=== PATIENT | male | born 1935 | race Caucasian/White ===

== ENCOUNTER 2019-10-13 16:17 | Outpatient (CLI) | payer MEDICARE, OTHER, SELFPAY ==
[2019-10-13 16:43] LABS: Absolute Basophil Count 0.03 k/cumm (0.0-0.2); Absolute Eosinophil Count 0.09 k/cumm (0.0-0.7); Absolute Lymphocyte Count 2.03 k/cumm (1.2-3.4); Absolute Monocyte Count 0.47 k/cumm (0.11-0.7); Absolute Neutrophil Count 2.81 k/cumm (1.2-6.7); Basophils % 0.6; Eosinophils % 1.7; HCT 40.4 % (40.0-50.0); HGB 13.2 g/dL (13.5-17.5); Lymphocytes % 37.4; Mean Corp. HGB Concentration 32.7 g/dL (32.0-36.0); Mean Corpuscular Volume 91.8 fL (80-95); Mean Platelet Volume 10.4 fL (8.0-11.0); Monocytes % 8.7; Neutrophils % 51.6; Platelet Count 261 x1000/uL (130-400); RBC Distribution Width 14.5 % (11.8-14.1); White Blood Cell Count 5.43 k/cumm (4.4-10.8)
[2019-10-13 17:21] LABS: ALT 19 U/L (16-63); AST 22 U/L (15-37); Albumin 3.5 g/dL (3.4-5.0); Alkaline Phosphatase 76 U/L (46-116); Anion Gap 7.5 mmol/L (3-11); BUN 14 mg/dL (7-18); Bilirubin, Total 0.9 mg/dL (0.2-1.0); CO2 28.5 mmol/L (21.0-32.0); CREATININE 1.04 mg/dL (0.70-1.30); Calcium 9.1 mg/dL (8.5-10.1); Chloride 106 mmol/L (98-107); Glucose 132 mg/dL (74-106); Potassium 4.4 mmol/L (3.5-5.1); Sodium 142 mmol/L (136-145); Total Protein 6.8 g/dL (6.4-8.2)
[2019-10-16 08:37] LABS: CEA 12.1 ng/mL (See Note)
[2019-10-19 15:08] LABS: DPYD Predicted Toxicity Risk Normal
== END 2019-10-13 16:37 ==
PROVIDERS: PCP Internal Medicine; Visit Provider Internal Medicine Hematology & Oncology
DX: C16.9 Malignant neoplasm of stomach, unspecified (principal)
CPT/HCPCS: 36415; 80053; 81232; 82378; 85025

== ENCOUNTER 2019-10-27 09:44 | Outpatient (CLI) | payer MEDICARE, OTHER, SELFPAY ==
[2019-10-27 14:18] LABS: Abs Immature Grans 0.02 k/cumm (0.0-0.09); Absolute Basophil Count 0.01 k/cumm (0.0-0.2); Absolute Lymphocyte Count 1.58 k/cumm (1.2-3.4); Absolute Monocyte Count 0.68 k/cumm (0.11-0.7); Absolute Neutrophil Count 3.57 k/cumm (1.2-6.7); Basophils % 0.2; Eosinophils % 1.7; HCT 36.4 % (40.0-50.0); HGB 11.9 g/dL (13.5-17.5); Immature Grans % 0.3 %; Lymphocytes % 26.5; Mean Corp. HGB Concentration 32.7 g/dL (32.0-36.0); Mean Corpuscular Volume 88.6 fL (80-95); Monocytes % 11.4; Neutrophils % 59.9; Platelet Count 260 x1000/uL (130-400); RBC 4.11 m/cumm (4.50-6.00); RBC Distribution Width 13.6 % (11.8-14.1); White Blood Cell Count 5.96 k/cumm (4.4-10.8)
[2019-10-27 14:25] LABS: ALT 16 U/L (16-63); AST 18 U/L (15-37); Alkaline Phosphatase 76 U/L (46-116); Anion Gap 5.2 mmol/L (3-11); BUN 11 mg/dL (7-18); CO2 31.8 mmol/L (21.0-32.0); CREATININE 0.97 mg/dL (0.70-1.30); Chloride 101 mmol/L (98-107); Glucose 139 mg/dL (74-106); Potassium 4.3 mmol/L (3.5-5.1); Sodium 138 mmol/L (136-145); Total Protein 6.5 g/dL (6.4-8.2)
[2019-10-30 11:10] LABS: CEA 15.1 ng/mL (See Note)
== END 2019-10-27 10:04 ==
PROVIDERS: PCP Internal Medicine; Visit Provider Internal Medicine Hematology & Oncology
DX: C16.9 Malignant neoplasm of stomach, unspecified (principal)
CPT/HCPCS: 36415; 80053; 82378; 85025

== ENCOUNTER 2019-11-24 04:38 | Outpatient (RCR) | payer MEDICARE, OTHER, SELFPAY ==
[2019-11-10 14:56] LABS: Abs Immature Grans 0.01 k/cumm (0.0-0.09); Absolute Basophil Count 0.01 k/cumm (0.0-0.2); Absolute Eosinophil Count 0.09 k/cumm (0.0-0.7); Absolute Lymphocyte Count 2.01 k/cumm (1.2-3.4); Absolute Monocyte Count 0.48 k/cumm (0.11-0.7); Absolute Neutrophil Count 2.38 k/cumm (1.2-6.7); Basophils % 0.2; Eosinophils % 1.8; HGB 12.1 g/dL (13.5-17.5); Immature Grans % 0.2 %; Lymphocytes % 40.4; Mean Corp. HGB Concentration 32.7 g/dL (32.0-36.0); Mean Corpuscular Hemoglobin 28.9 pg (27.0-33.0); Mean Corpuscular Volume 88.5 fL (80-95); Mean Platelet Volume 9.5 fL (8.0-11.0); Monocytes % 9.6; Neutrophils % 47.8; Platelet Count 307 x1000/uL (130-400); RBC 4.18 m/cumm (4.50-6.00); RBC Distribution Width 14.2 % (11.8-14.1); White Blood Cell Count 4.98 k/cumm (4.4-10.8)
[2019-11-10] MEDS: Heparin 500 UNITS/5 ML SYRINGE IV (15:04)
[2019-11-10] MEDS: Normal Saline Flush 10 ML SYR IVP (15:04)
[2019-11-10 15:51] LABS: ALT 17 U/L (16-63); AST 18 U/L (15-37); Albumin 3.2 g/dL (3.4-5.0); Alkaline Phosphatase 71 U/L (46-116); Anion Gap 7.2 mmol/L (3-11); BUN 21 mg/dL (7-18); Bilirubin, Total 0.5 mg/dL (0.2-1.0); CO2 28.8 mmol/L (21.0-32.0); Chloride 108 mmol/L (98-107); Glucose 115 mg/dL (74-106); Potassium 3.8 mmol/L (3.5-5.1); Sodium 144 mmol/L (136-145); Total Protein 6.6 g/dL (6.4-8.2); Vitamin B12 657 pg/mL (193-986)
[2019-11-10 16:03] LABS: Iron 29 ug/dL (65-175); Total Iron Binding Capacity 254 ug/dL (250-450); Transferrin Sat 11 % (20-55)
[2019-11-10 16:11] LABS: Ferritin 277 ng/mL (26-388)
[2019-11-24 08:49] LABS: Abs Immature Grans 0.01 k/cumm (0.0-0.09); Absolute Basophil Count 0.02 k/cumm (0.0-0.2); Absolute Eosinophil Count 0.11 k/cumm (0.0-0.7); Absolute Lymphocyte Count 1.54 k/cumm (1.2-3.4); Absolute Monocyte Count 0.66 k/cumm (0.11-0.7); Absolute Neutrophil Count 1.95 k/cumm (1.2-6.7); Basophils % 0.5; Eosinophils % 2.6; HCT 35.5 % (40.0-50.0); HGB 11.5 g/dL (13.5-17.5); Immature Grans % 0.2 %; Lymphocytes % 35.9; Mean Corp. HGB Concentration 32.4 g/dL (32.0-36.0); Mean Corpuscular Hemoglobin 28.7 pg (27.0-33.0); Mean Corpuscular Volume 88.5 fL (80-95); Mean Platelet Volume 9.5 fL (8.0-11.0); Monocytes % 15.4; Neutrophils % 45.4; Platelet Count 264 x1000/uL (130-400); RBC 4.01 m/cumm (4.50-6.00); RBC Distribution Width 14.5 % (11.8-14.1); White Blood Cell Count 4.29 k/cumm (4.4-10.8)
[2019-11-24 09:07] LABS: ALT 15 U/L (16-63); AST 18 U/L (15-37); Albumin 2.7 g/dL (3.4-5.0); Alkaline Phosphatase 87 U/L (46-116); Anion Gap 7.1 mmol/L (3-11); BUN 11 mg/dL (7-18); Bilirubin, Total 0.5 mg/dL (0.2-1.0); CO2 29.9 mmol/L (21.0-32.0); CREATININE 0.98 mg/dL (0.70-1.30); Calcium 8.6 mg/dL (8.5-10.1); Chloride 105 mmol/L (98-107); Glucose 125 mg/dL (74-106); Potassium 3.6 mmol/L (3.5-5.1); Sodium 142 mmol/L (136-145); Total Protein 6.3 g/dL (6.4-8.2)
[2019-11-24] MEDS: Normal Saline Flush 10 ML SYR IVP (09:41)
[2019-11-24] MEDS: Heparin 500 UNITS/5 ML SYRINGE IV (09:41)
[2019-11-27 10:25] LABS: CEA 4.9 ng/mL (See Note)
== END 2019-12-05 23:59 | disposition home or self-care (01) ==
LOC: INF 04:38
PROVIDERS: PCP Internal Medicine; Visit Provider Internal Medicine Hematology & Oncology
DX: C16.9 Malignant neoplasm of stomach, unspecified (principal); Z45.2 Encounter for adjustment and management of vascular access device
CPT/HCPCS: 36591; 80053; 82378; 82607; 82728; 83540; 83550; 85025

== ENCOUNTER 2020-01-04 02:01 | Outpatient (RCR) | payer MEDICARE, OTHER, SELFPAY ==
[2019-12-07 09:21] LABS: Absolute Basophil Count 0.02 k/cumm (0.0-0.2); Absolute Eosinophil Count 0.03 k/cumm (0.0-0.7); Absolute Lymphocyte Count 1.29 k/cumm (1.2-3.4); Absolute Monocyte Count 0.29 k/cumm (0.11-0.7); Absolute Neutrophil Count 2.63 k/cumm (1.2-6.7); Basophils % 0.5; Eosinophils % 0.7; HCT 33.7 % (40.0-50.0); HGB 10.6 g/dL (13.5-17.5); Lymphocytes % 30.3; Mean Corp. HGB Concentration 31.5 g/dL (32.0-36.0); Mean Corpuscular Hemoglobin 27.9 pg (27.0-33.0); Mean Corpuscular Volume 88.7 fL (80-95); Mean Platelet Volume 8.8 fL (8.0-11.0); Monocytes % 6.8; Neutrophils % 61.7; Platelet Count 278 x1000/uL (130-400); RBC Distribution Width 14.9 % (11.8-14.1); White Blood Cell Count 4.26 k/cumm (4.4-10.8)
[2019-12-07] MEDS: Heparin 500 UNITS/5 ML SYRINGE IV (09:24)
[2019-12-07] MEDS: Normal Saline Flush 10 ML SYR IVP (09:24)
[2019-12-07 09:35] LABS: ALT 15 U/L (16-63); AST 20 U/L (15-37); Albumin 2.4 g/dL (3.4-5.0); Alkaline Phosphatase 87 U/L (46-116); Anion Gap 4.8 mmol/L (3-11); BUN 11 mg/dL (7-18); Bilirubin, Total 0.5 mg/dL (0.2-1.0); CO2 30.2 mmol/L (21.0-32.0); CREATININE 0.85 mg/dL (0.70-1.30); Calcium 8.3 mg/dL (8.5-10.1); Chloride 107 mmol/L (98-107); Glucose 117 mg/dL (74-106); Potassium 3.5 mmol/L (3.5-5.1); Sodium 142 mmol/L (136-145); Total Protein 5.9 g/dL (6.4-8.2)
[2019-12-08 12:55] LABS: CEA 3.2 ng/mL (See Note)
[2019-12-22] MEDS: Normal Saline Flush 10 ML SYR IVP (09:20)
[2019-12-22] MEDS: Heparin 500 UNITS/5 ML SYRINGE IV (09:25)
[2019-12-22 09:35] LABS: Abs Immature Grans 0.01 k/cumm (0.0-0.09); Absolute Basophil Count 0.07 k/cumm (0.0-0.2); Absolute Eosinophil Count 0.05 k/cumm (0.0-0.7); Absolute Lymphocyte Count 1.42 k/cumm (1.2-3.4); Absolute Monocyte Count 0.59 k/cumm (0.11-0.7); Absolute Neutrophil Count 2.26 k/cumm (1.2-6.7); Basophils % 1.6; Eosinophils % 1.1; HCT 34.7 % (40.0-50.0); Immature Grans % 0.2 %; Lymphocytes % 32.3; Mean Corp. HGB Concentration 31.7 g/dL (32.0-36.0); Mean Corpuscular Hemoglobin 28.2 pg (27.0-33.0); Mean Platelet Volume 8.8 fL (8.0-11.0); Monocytes % 13.4; Neutrophils % 51.4; Platelet Count 283 x1000/uL (130-400); RBC Distribution Width 15.9 % (11.8-14.1)
[2019-12-22 09:44] LABS: ALT 15 U/L (16-63); AST 26 U/L (15-37); Albumin 2.5 g/dL (3.4-5.0); Alkaline Phosphatase 101 U/L (46-116); Anion Gap 7.5 mmol/L (3-11); BUN 14 mg/dL (7-18); Bilirubin, Total 0.4 mg/dL (0.2-1.0); CO2 27.5 mmol/L (21.0-32.0); CREATININE 0.87 mg/dL (0.70-1.30); Calcium 8.5 mg/dL (8.5-10.1); Chloride 106 mmol/L (98-107); Glucose 156 mg/dL (74-106); Sodium 141 mmol/L (136-145); Total Protein 6.1 g/dL (6.4-8.2)
[2019-12-25 10:44] LABS: CEA 1.5 ng/mL (See Note)
[2020-01-04] MEDS: Heparin 500 UNITS/5 ML SYRINGE IV (07:50)
[2020-01-04] MEDS: Normal Saline Flush 10 ML SYR IVP (07:50)
[2020-01-04 08:14] LABS: Abs Immature Grans 0.02 10^3/uL (0.0-0.06); Absolute Basophil Count 0.04 10^3/uL (0.0-0.2); Absolute Eosinophil Count 0.09 10^3/uL (0.0-0.7); Absolute Lymphocyte Count 1.38 10^3/uL (1.2-3.4); Absolute Monocyte Count 0.46 10^3/uL (0.1-0.8); Absolute Neutrophil Count 3.06 10^3/uL (1.2-6.7); Basophils % 0.8; Eosinophils % 1.8; HCT 33.5 % (40.0-50.0); HGB 10.6 g/dL (13.5-17.5); Immature Grans % 0.4; Lymphocytes % 27.3; MCH 28.4 pg (27.0-33.0); MCHC 31.6 % (32.0-36.0); MCV 89.8 fL (80-95); MPV 9.5 fL (8.0-11.0); Monocytes % 9.1; Neutrophils % 60.6; Platelet Count 213 10^3/uL (130-400); RBC 3.73 10^6/uL (4.36-5.78); RDW 15.9 % (11.8-14.1); RDW-SD 50.3 fL; WBC 5.05 10^3/uL (4.4-10.8)
[2020-01-04 08:30] LABS: ALT 16 U/L (16-63); AST 21 U/L (15-37); Albumin 2.3 g/dL (3.4-5.0); Alkaline Phosphatase 115 U/L (46-116); Anion Gap 7.6 mmol/L (3-11); BUN 12 mg/dL (7-18); Bilirubin, Total 0.4 mg/dL (0.2-1.0); CO2 27.4 mmol/L (21.0-32.0); CREATININE 0.74 mg/dL (0.70-1.30); Calcium 8.5 mg/dL (8.5-10.1); Chloride 107 mmol/L (98-107); Glucose 145 mg/dL (74-106); Potassium 3.9 mmol/L (3.5-5.1); Sodium 142 mmol/L (136-145); Total Protein 5.8 g/dL (6.4-8.2)
[2020-01-04 18:18] LABS: CEA 2.2 ng/mL (See Note)
== END 2020-01-05 23:59 | disposition home or self-care (01) ==
LOC: INF 02:01
PROVIDERS: PCP Internal Medicine; Visit Provider Internal Medicine Hematology & Oncology
DX: C16.9 Malignant neoplasm of stomach, unspecified (principal); Z45.2 Encounter for adjustment and management of vascular access device
CPT/HCPCS: 36591; 80053; 82378; 85025

== ENCOUNTER 2020-01-26 04:40 | Outpatient (RCR) | payer MEDICARE, OTHER, SELFPAY ==
[2020-01-09] MEDS: Normal Saline Flush 10 ML SYR IVP (08:45)
[2020-01-09 09:05] LABS: Absolute Basophil Count 0.03 10^3/uL (0.0-0.2); Absolute Eosinophil Count 0.06 10^3/uL (0.0-0.7); Absolute Lymphocyte Count 1.48 10^3/uL (1.2-3.4); Absolute Monocyte Count 0.78 10^3/uL (0.1-0.8); Absolute Neutrophil Count 0.61 10^3/uL (1.2-6.7); HCT 33.9 % (40.0-50.0); HGB 10.8 g/dL (13.5-17.5); MCH 28.9 pg (27.0-33.0); MCHC 31.9 % (32.0-36.0); MCV 90.6 fL (80-95); MPV 9.5 fL (8.0-11.0); Monocytes % 26.4; Neutrophils % 20.6; Platelet Count 222 10^3/uL (130-400); RBC 3.74 10^6/uL (4.36-5.78); RDW 16.4 % (11.8-14.1); RDW-SD 53.2 fL; WBC 2.96 10^3/uL (4.4-10.8)
[2020-01-09 09:24] LABS: Anisocytosis 1+; Diff Comment Agrees w/ Instrument
[2020-01-09 09:25] LABS: ALT 20 U/L (16-63); AST 30 U/L (15-37); Albumin 2.4 g/dL (3.4-5.0); Alkaline Phosphatase 137 U/L (46-116); Anion Gap 5.7 mmol/L (3-11); BUN 13 mg/dL (7-18); Bilirubin, Total 0.6 mg/dL (0.2-1.0); CO2 28.3 mmol/L (21.0-32.0); CREATININE 0.74 mg/dL (0.70-1.30); Calcium 8.4 mg/dL (8.5-10.1); Chloride 108 mmol/L (98-107); Glucose 118 mg/dL (74-106); Potassium 4.2 mmol/L (3.5-5.1); Sodium 142 mmol/L (136-145)
[2020-01-15 09:25] LABS: Abs Immature Grans 0.07 10^3/uL (0.0-0.06); Absolute Basophil Count 0.05 10^3/uL (0.0-0.2); Absolute Eosinophil Count 0.08 10^3/uL (0.0-0.7); Absolute Lymphocyte Count 1.95 10^3/uL (1.2-3.4); Absolute Monocyte Count 0.87 10^3/uL (0.1-0.8); Basophils % 0.8; Eosinophils % 1.3; HCT 34.3 % (40.0-50.0); HGB 10.6 g/dL (13.5-17.5); Immature Grans % 1.1; Lymphocytes % 31.9; MCH 28.5 pg (27.0-33.0); MCHC 30.9 % (32.0-36.0); MCV 92.2 fL (80-95); MPV 8.9 fL (8.0-11.0); Monocytes % 14.2; Neutrophils % 50.7; Nucleated RBC 0 %; Platelet Count 272 10^3/uL (130-400); RBC 3.72 10^6/uL (4.36-5.78); RDW 17.3 % (11.8-14.1); RDW-SD 58.1 fL; WBC 6.12 10^3/uL (4.4-10.8)
[2020-01-15] MEDS: Normal Saline Flush 10 ML SYR IVP (09:47)
[2020-01-15 09:48] LABS: ALT 20 U/L (16-63); AST 29 U/L (15-37); Albumin 2.3 g/dL (3.4-5.0); Alkaline Phosphatase 137 U/L (46-116); Anion Gap 6.3 mmol/L (3-11); BUN 12 mg/dL (7-18); Bilirubin, Total 0.4 mg/dL (0.2-1.0); CO2 27.7 mmol/L (21.0-32.0); Calcium 8.6 mg/dL (8.5-10.1); Chloride 107 mmol/L (98-107); Glucose 87 mg/dL (74-106); Potassium 4.2 mmol/L (3.5-5.1); Sodium 141 mmol/L (136-145); Total Protein 6.1 g/dL (6.4-8.2)
[2020-01-15 16:14] LABS: CEA 1.8 ng/mL (See Note)
[2020-01-26] MEDS: Heparin 500 UNITS/5 ML SYRINGE IV (08:45)
[2020-01-26] MEDS: Normal Saline Flush 10 ML SYR IVP (08:45)
[2020-01-26 09:06] LABS: Absolute Basophil Count 0.04 10^3/uL (0.0-0.2); Absolute Eosinophil Count 0.02 10^3/uL (0.0-0.7); Absolute Lymphocyte Count 1.46 10^3/uL (1.2-3.4); Absolute Monocyte Count 0.62 10^3/uL (0.1-0.8); Absolute Neutrophil Count 3.19 10^3/uL (1.2-6.7); Basophils % 0.8; Eosinophils % 0.4; HCT 31.6 % (40.0-50.0); HGB 10.3 g/dL (13.5-17.5); Lymphocytes % 27.4; MCH 29.7 pg (27.0-33.0); MCHC 32.6 % (32.0-36.0); MCV 91.1 fL (80-95); MPV 9.1 fL (8.0-11.0); Monocytes % 11.6; Neutrophils % 59.8; Nucleated RBC 0 %; Platelet Count 182 10^3/uL (130-400); RBC 3.47 10^6/uL (4.36-5.78); RDW 17.2 % (11.8-14.1); RDW-SD 55.7 fL; WBC 5.33 10^3/uL (4.4-10.8)
[2020-01-26 09:20] LABS: ALT 19 U/L (16-63); AST 26 U/L (15-37); Albumin 2.5 g/dL (3.4-5.0); Alkaline Phosphatase 131 U/L (46-116); Anion Gap 4.6 mmol/L (3-11); BUN 16 mg/dL (7-18); Bilirubin, Total 0.5 mg/dL (0.2-1.0); CO2 27.4 mmol/L (21.0-32.0); CREATININE 0.74 mg/dL (0.70-1.30); Calcium 8.6 mg/dL (8.5-10.1); Chloride 108 mmol/L (98-107); Glucose 143 mg/dL (74-106); Potassium 3.4 mmol/L (3.5-5.1); Sodium 140 mmol/L (136-145); Total Protein 6.1 g/dL (6.4-8.2)
[2020-01-29 08:30] LABS: CEA 1.9 ng/mL (See Note)
[2020-02-09 11:52] LABS: Abs Immature Grans 0.03 10^3/uL (0.0-0.06); Absolute Basophil Count 0.03 10^3/uL (0.0-0.2); Absolute Eosinophil Count 0.04 10^3/uL (0.0-0.7); Absolute Lymphocyte Count 1.62 10^3/uL (1.2-3.4); Absolute Monocyte Count 0.57 10^3/uL (0.1-0.8); Absolute Neutrophil Count 2.13 10^3/uL (1.2-6.7); Basophils % 0.7; Eosinophils % 0.9; HCT 31.9 % (40.0-50.0); HGB 10.2 g/dL (13.5-17.5); Immature Grans % 0.7; Lymphocytes % 36.7; MCH 30.2 pg (27.0-33.0); MCV 94.4 fL (80-95); MPV 8.9 fL (8.0-11.0); Monocytes % 12.9; Neutrophils % 48.1; Nucleated RBC 0 %; Platelet Count 213 10^3/uL (130-400); RBC 3.38 10^6/uL (4.36-5.78); RDW 16.2 % (11.8-14.1); RDW-SD 56.1 fL; WBC 4.42 10^3/uL (4.4-10.8)
[2020-02-09] MEDS: Heparin 500 UNITS/5 ML SYRINGE IV (11:58)
[2020-02-09] MEDS: Normal Saline Flush 10 ML SYR IVP (11:58)
[2020-02-09 12:04] LABS: ALT 23 U/L (16-63); AST 33 U/L (15-37); Albumin 2.4 g/dL (3.4-5.0); Alkaline Phosphatase 157 U/L (46-116); Anion Gap 5.4 mmol/L (3-11); BUN 13 mg/dL (7-18); Bilirubin, Total 0.3 mg/dL (0.2-1.0); CO2 27.6 mmol/L (21.0-32.0); CREATININE 0.84 mg/dL (0.70-1.30); Calcium 8.3 mg/dL (8.5-10.1); Chloride 107 mmol/L (98-107); Glucose 125 mg/dL (74-106); Potassium 3.9 mmol/L (3.5-5.1); Sodium 140 mmol/L (136-145); Total Protein 5.8 g/dL (6.4-8.2)
[2020-02-09 22:59] LABS: CEA 2.6 ng/mL (See Note)
== END 2020-02-05 09:41 ==
LOC: INF 04:40
PROVIDERS: Internal Medicine Hematology & Oncology; PCP Internal Medicine; Visit Provider Internal Medicine Hematology & Oncology
DX: C16.9 Malignant neoplasm of stomach, unspecified (principal); Z45.2 Encounter for adjustment and management of vascular access device
CPT/HCPCS: 36591; 80053; 82378; 85025

== ENCOUNTER 2020-02-23 09:00 | Outpatient (RCR) | payer MEDICARE, OTHER, SELFPAY ==
[2020-02-23] MEDS: Heparin 500 UNITS/5 ML SYRINGE IV (09:20)
[2020-02-23] MEDS: Normal Saline Flush 10 ML SYR IVP (09:20)
[2020-02-23 09:46] LABS: Abs Immature Grans 0.02 10^3/uL (0.0-0.06); Absolute Basophil Count 0.03 10^3/uL (0.0-0.2); Absolute Eosinophil Count 0.05 10^3/uL (0.0-0.7); Absolute Lymphocyte Count 2.11 10^3/uL (1.2-3.4); Absolute Monocyte Count 0.59 10^3/uL (0.1-0.8); Absolute Neutrophil Count 2.36 10^3/uL (1.2-6.7); Basophils % 0.6; HCT 32.8 % (40.0-50.0); HGB 10.4 g/dL (13.5-17.5); Immature Grans % 0.4; Lymphocytes % 40.9; MCH 30.2 pg (27.0-33.0); MCHC 31.7 % (32.0-36.0); MCV 95.3 fL (80-95); MPV 9.4 fL (8.0-11.0); Monocytes % 11.4; Neutrophils % 45.7; Nucleated RBC 0 %; Platelet Count 215 10^3/uL (130-400); RBC 3.44 10^6/uL (4.36-5.78); RDW 15.9 % (11.8-14.1); RDW-SD 54.4 fL; WBC 5.16 10^3/uL (4.4-10.8)
[2020-02-23 09:53] LABS: ALT 23 U/L (16-63); AST 34 U/L (15-37); Albumin 2.3 g/dL (3.4-5.0); Alkaline Phosphatase 156 U/L (46-116); Anion Gap 4.2 mmol/L (3-11); BUN 14 mg/dL (7-18); Bilirubin, Total 0.3 mg/dL (0.2-1.0); CO2 28.8 mmol/L (21.0-32.0); CREATININE 0.77 mg/dL (0.70-1.30); Calcium 8.4 mg/dL (8.5-10.1); Chloride 109 mmol/L (98-107); Glucose 85 mg/dL (74-106); Sodium 142 mmol/L (136-145); Total Protein 5.9 g/dL (6.4-8.2)
[2020-02-28 09:11] LABS: CEA 3.4 ng/mL (See Note)
== END 2020-03-06 23:59 | disposition home or self-care (01) ==
LOC: INF 09:00
PROVIDERS: PCP Internal Medicine; Visit Provider Internal Medicine Hematology & Oncology
DX: C16.9 Malignant neoplasm of stomach, unspecified (principal); Z45.2 Encounter for adjustment and management of vascular access device
CPT/HCPCS: 36591; 80053; 82378; 85025

== ENCOUNTER 2020-04-05 03:55 | Outpatient (RCR) | payer MEDICARE, OTHER, SELFPAY ==
[2020-03-08] MEDS: Heparin 500 UNITS/5 ML SYRINGE IV (09:03)
[2020-03-08] MEDS: Normal Saline Flush 10 ML SYR IVP (09:03)
[2020-03-08 09:06] LABS: Abs Immature Grans 0.01 10^3/uL (0.0-0.06); Absolute Basophil Count 0.03 10^3/uL (0.0-0.2); Absolute Eosinophil Count 0.03 10^3/uL (0.0-0.7); Absolute Lymphocyte Count 1.47 10^3/uL (1.2-3.4); Absolute Neutrophil Count 2.07 10^3/uL (1.2-6.7); Basophils % 0.7; Eosinophils % 0.7; HCT 31.8 % (40.0-50.0); HGB 10.3 g/dL (13.5-17.5); Immature Grans % 0.2; Lymphocytes % 34.9; MCH 30.6 pg (27.0-33.0); MCHC 32.4 % (32.0-36.0); MCV 94.4 fL (80-95); MPV 9.3 fL (8.0-11.0); Monocytes % 14.3; Neutrophils % 49.2; Nucleated RBC 0 %; Platelet Count 180 10^3/uL (130-400); RBC 3.37 10^6/uL (4.36-5.78); RDW 15.5 % (11.8-14.1); WBC 4.21 10^3/uL (4.4-10.8)
[2020-03-08 09:16] LABS: ALT 19 U/L (16-63); AST 30 U/L (15-37); Albumin 2.2 g/dL (3.4-5.0); Alkaline Phosphatase 137 U/L (46-116); Anion Gap 5.8 mmol/L (3-11); BUN 10 mg/dL (7-18); Bilirubin, Total 0.4 mg/dL (0.2-1.0); CO2 27.2 mmol/L (21.0-32.0); CREATININE 0.85 mg/dL (0.70-1.30); Calcium 8.1 mg/dL (8.5-10.1); Chloride 110 mmol/L (98-107); Glucose 151 mg/dL (74-106); Potassium 3.2 mmol/L (3.5-5.1); Sodium 143 mmol/L (136-145); Total Protein 5.7 g/dL (6.4-8.2)
[2020-03-08 18:13] LABS: CEA 3.2 ng/mL (See Note)
[2020-03-22] MEDS: Normal Saline Flush 10 ML SYR IVP (09:52)
[2020-03-22] MEDS: Heparin 500 UNITS/5 ML SYRINGE IV (09:52)
[2020-03-22 10:05] LABS: Abs Immature Grans 0.02 10^3/uL (0.0-0.06); Absolute Basophil Count 0.03 10^3/uL (0.0-0.2); Absolute Eosinophil Count 0.01 10^3/uL (0.0-0.7); Absolute Lymphocyte Count 1.54 10^3/uL (1.2-3.4); Absolute Monocyte Count 0.54 10^3/uL (0.1-0.8); Absolute Neutrophil Count 1.85 10^3/uL (1.2-6.7); Basophils % 0.8; Eosinophils % 0.3; HCT 32.4 % (40.0-50.0); HGB 10.5 g/dL (13.5-17.5); Immature Grans % 0.5; Lymphocytes % 38.6; MCH 30.8 pg (27.0-33.0); MCHC 32.4 % (32.0-36.0); MPV 9.1 fL (8.0-11.0); Monocytes % 13.5; Neutrophils % 46.3; Nucleated RBC 0 %; Platelet Count 159 10^3/uL (130-400); RBC 3.41 10^6/uL (4.36-5.78); RDW 15.2 % (11.8-14.1); RDW-SD 51.9 fL; WBC 3.99 10^3/uL (4.4-10.8)
[2020-03-22 10:26] LABS: ALT 21 U/L (16-63); AST 35 U/L (15-37); Albumin 2.3 g/dL (3.4-5.0); Alkaline Phosphatase 151 U/L (46-116); Anion Gap 5.4 mmol/L (3-11); BUN 16 mg/dL (7-18); Bilirubin, Total 0.3 mg/dL (0.2-1.0); CO2 27.6 mmol/L (21.0-32.0); CREATININE 0.77 mg/dL (0.70-1.30); Calcium 8.4 mg/dL (8.5-10.1); Chloride 109 mmol/L (98-107); Glucose 108 mg/dL (74-106); Potassium 4.2 mmol/L (3.5-5.1); Sodium 142 mmol/L (136-145); Total Protein 5.8 g/dL (6.4-8.2)
[2020-03-22 18:12] LABS: CEA 3.4 ng/mL (See Note)
[2020-04-05 10:09] LABS: Abs Immature Grans 0.01 10^3/uL (0.0-0.06); Absolute Basophil Count 0.03 10^3/uL (0.0-0.2); Absolute Eosinophil Count 0.02 10^3/uL (0.0-0.7); Absolute Lymphocyte Count 1.52 10^3/uL (1.2-3.4); Absolute Monocyte Count 0.43 10^3/uL (0.1-0.8); Absolute Neutrophil Count 1.89 10^3/uL (1.2-6.7); Basophils % 0.8; Eosinophils % 0.5; HCT 32.3 % (40.0-50.0); HGB 10.2 g/dL (13.5-17.5); Immature Grans % 0.3; MCH 30.6 pg (27.0-33.0); MCHC 31.6 % (32.0-36.0); MPV 9.1 fL (8.0-11.0); Neutrophils % 48.4; Nucleated RBC 0 %; Platelet Count 171 10^3/uL (130-400); RBC 3.33 10^6/uL (4.36-5.78); RDW 15.1 % (11.8-14.1)
[2020-04-05 10:22] LABS: ALT 22 U/L (16-63); AST 39 U/L (15-37); Albumin 2.3 g/dL (3.4-5.0); Alkaline Phosphatase 157 U/L (46-116); Anion Gap 5.5 mmol/L (3-11); BUN 12 mg/dL (7-18); Bilirubin, Total 0.4 mg/dL (0.2-1.0); CO2 27.5 mmol/L (21.0-32.0); CREATININE 0.77 mg/dL (0.70-1.30); Calcium 8.3 mg/dL (8.5-10.1); Chloride 110 mmol/L (98-107); Glucose 118 mg/dL (74-106); Sodium 143 mmol/L (136-145); Total Protein 5.8 g/dL (6.4-8.2)
[2020-04-05] MEDS: Normal Saline Flush 10 ML SYR IVP (10:50)
[2020-04-05] MEDS: Heparin 500 UNITS/5 ML SYRINGE IV (10:50)
[2020-04-10 16:06] LABS: CEA 2.9 ng/ml
== END 2020-04-06 23:59 | disposition home or self-care (01) ==
LOC: INF 03:55
PROVIDERS: PCP Internal Medicine; Visit Provider Internal Medicine Hematology & Oncology
DX: C16.9 Malignant neoplasm of stomach, unspecified (principal); Z45.2 Encounter for adjustment and management of vascular access device
CPT/HCPCS: 36591; 80053; 82378; 85025

== ENCOUNTER 2020-04-19 04:09 | Outpatient (RCR) | payer MEDICARE, OTHER, SELFPAY ==
[2020-04-19] MEDS: Normal Saline Flush 10 ML SYR IVP (09:59)
[2020-04-19] MEDS: Heparin 500 UNITS/5 ML SYRINGE IV (09:59)
[2020-04-19 10:17] LABS: Abs Immature Grans 0.01 10^3/uL (0.0-0.06); Absolute Basophil Count 0.04 10^3/uL (0.0-0.2); Absolute Eosinophil Count 0.04 10^3/uL (0.0-0.7); Absolute Lymphocyte Count 1.52 10^3/uL (1.2-3.4); Absolute Neutrophil Count 1.79 10^3/uL (1.2-6.7); HCT 31.7 % (40.0-50.0); Immature Grans % 0.3; MCH 30.5 pg (27.0-33.0); MCHC 31.5 % (32.0-36.0); MCV 96.6 fL (80-95); MPV 9.1 fL (8.0-11.0); Monocytes % 12.8; Neutrophils % 45.9; Nucleated RBC 0 %; Platelet Count 154 10^3/uL (130-400); RBC 3.28 10^6/uL (4.36-5.78); RDW 15.2 % (11.8-14.1); RDW-SD 51.8 fL
[2020-04-19 10:33] LABS: ALT 23 U/L (16-63); AST 41 U/L (15-37); Albumin 2.2 g/dL (3.4-5.0); Alkaline Phosphatase 172 U/L (46-116); Anion Gap 6.2 mmol/L (3-11); BUN 14 mg/dL (7-18); Bilirubin, Total 0.4 mg/dL (0.2-1.0); CO2 26.8 mmol/L (21.0-32.0); CREATININE 0.91 mg/dL (0.70-1.30); Calcium 8.2 mg/dL (8.5-10.1); Chloride 109 mmol/L (98-107); Glucose 130 mg/dL (74-106); Potassium 4.1 mmol/L (3.5-5.1); Sodium 142 mmol/L (136-145); Total Protein 5.9 g/dL (6.4-8.2)
[2020-04-22 16:22] LABS: CEA 2.8 ng/ml
== END 2020-05-06 23:59 | disposition home or self-care (01) ==
LOC: INF 04:09
PROVIDERS: PCP Internal Medicine; Visit Provider Internal Medicine Hematology & Oncology
DX: C16.9 Malignant neoplasm of stomach, unspecified (principal); Z45.2 Encounter for adjustment and management of vascular access device
CPT/HCPCS: 36591; 80053; 82378; 85025

== ENCOUNTER 2020-05-28 01:31 | Outpatient (RCR) | payer MEDICARE, OTHER, SELFPAY ==
[2020-05-08] MEDS: Normal Saline Flush 10 ML SYR IVP (10:05)
[2020-05-08 10:27] LABS: Absolute Eosinophil Count 0.03 10^3/uL (0.0-0.7); HCT 31.9 % (40.0-50.0); HGB 10.3 g/dL (13.5-17.5); MCH 30.9 pg (27.0-33.0); MCHC 32.3 % (32.0-36.0); MCV 95.8 fL (80-95); MPV 9.1 fL (8.0-11.0); Nucleated RBC 0 %; RBC 3.33 10^6/uL (4.36-5.78); RDW 15.5 % (11.8-14.1); RDW-SD 53.9 fL; WBC 2.55 10^3/uL (4.4-10.8)
[2020-05-08 10:43] LABS: ALT 21 U/L (16-63); AST 39 U/L (15-37); Albumin 2.2 g/dL (3.4-5.0); Alkaline Phosphatase 185 U/L (46-116); Anion Gap 3.6 mmol/L (3-11); BUN 17 mg/dL (7-18); Bilirubin, Total 0.6 mg/dL (0.2-1.0); CO2 27.4 mmol/L (21.0-32.0); CREATININE 0.83 mg/dL (0.70-1.30); Calcium 8.2 mg/dL (8.5-10.1); Chloride 107 mmol/L (98-107); Glucose 109 mg/dL (74-106); Potassium 4.1 mmol/L (3.5-5.1); Sodium 138 mmol/L (136-145); Total Protein 5.9 g/dL (6.4-8.2)
[2020-05-08 11:00] LABS: Platelet Count 156 10^3/uL (130-400)
[2020-05-08 11:01] LABS: Absolute Basophil Count 0.08 10^3/uL (0.0-0.2); Absolute Lymphocyte Count 1.58 10^3/uL (1.2-3.4); Absolute Monocyte Count 0.54 10^3/uL (0.1-0.8); Atypical Lymphocytes % 3; Diff Comment Manual Differential; RBC Morphology Normal
[2020-05-08 11:03] LABS: Absolute Neutrophil Count 0.33 10^3/uL (1.2-6.7)
[2020-05-08 21:37] LABS: CEA 2.6 ng/mL (See Note)
[2020-05-24] MEDS: Normal Saline Flush 10 ML SYR IVP (08:28)
[2020-05-24] MEDS: Heparin 500 UNITS/5 ML SYRINGE IV (08:29)
[2020-05-24 08:40] LABS: Abs Immature Grans 0.02 10^3/uL (0.0-0.06); Absolute Eosinophil Count 0.04 10^3/uL (0.0-0.7); Absolute Lymphocyte Count 1.87 10^3/uL (1.2-3.4); Absolute Monocyte Count 0.79 10^3/uL (0.1-0.8); Absolute Neutrophil Count 3.32 10^3/uL (1.2-6.7); Basophils % 1.6; Eosinophils % 0.7; HCT 32.4 % (40.0-50.0); HGB 10.4 g/dL (13.5-17.5); Immature Grans % 0.3; Lymphocytes % 30.5; MCH 31.5 pg (27.0-33.0); MCHC 32.1 % (32.0-36.0); MCV 98.2 fL (80-95); MPV 9.9 fL (8.0-11.0); Monocytes % 12.9; Nucleated RBC 0 %; Platelet Count 284 10^3/uL (130-400); RDW 15.6 % (11.8-14.1); RDW-SD 56.7 fL; WBC 6.14 10^3/uL (4.4-10.8)
[2020-05-24 08:50] LABS: ALT 23 U/L (16-63); AST 45 U/L (15-37); Albumin 2.2 g/dL (3.4-5.0); Alkaline Phosphatase 210 U/L (46-116); Anion Gap 5.2 mmol/L (3-11); BUN 15 mg/dL (7-18); Bilirubin, Total 0.5 mg/dL (0.2-1.0); CO2 27.8 mmol/L (21.0-32.0); CREATININE 0.82 mg/dL (0.70-1.30); Calcium 8.3 mg/dL (8.5-10.1); Chloride 108 mmol/L (98-107); Glucose 130 mg/dL (74-106); Potassium 4.6 mmol/L (3.5-5.1); Sodium 141 mmol/L (136-145); Total Protein 6.3 g/dL (6.4-8.2)
[2020-05-24 20:41] LABS: CEA 2.1 ng/mL (See Note)
== END 2020-06-06 23:59 | disposition home or self-care (01) ==
LOC: INF 01:31
PROVIDERS: PCP Internal Medicine; Visit Provider Internal Medicine Hematology & Oncology
DX: C16.9 Malignant neoplasm of stomach, unspecified (principal); Z45.2 Encounter for adjustment and management of vascular access device
CPT/HCPCS: 36591; 80053; 82378; 85025

== ENCOUNTER 2020-06-28 04:27 | Outpatient (RCR) | payer MEDICARE, OTHER, SELFPAY ==
--- OUTSIDE RECORDS SUMMARY | 2020-06-14 08:48 | XMS_ITS ---
:1935 Author Care Team Providers Name Role Phone ERIS SALDIVAR DO Primary Care Provider [phone] NINI GILL MD General Surgeon [phone] Allergies Code Code System Name Reaction Severity Status Onset Jon Inhibitors ? ? Active ? Notes: Reviewed with patient Medications Name Status Start Date Stop Date ? ? Acetaminophen Extra Strength 500 mg tablet Completed 09/0810/02/2019 Take 1000 mg every 6 hours by oral route. amoxicillin 500 mg capsule Completed ? 10/25 Cardizem 120 mg tablet Completed 09/09/2019 0 Take 120 mg twice a day by oral route. clarithromycin 500 mg tablet Completed ? Cozaar 50 mg tablet Completed 04/17/2016 12/11/2016 1 (one) Tablet: daily diltiazem CD 120 mg Completed ? 09/11/2019 capsule,extended release 24 hr docusate sodium 100 mg capsule Completed 10/25/2019 0 12/01/2019 Take 1 capsule every day by oral route as needed. Eliquis 5 mg tablet Active ? Not availabl e erythromycin 500 mg tablet Completed ? 10/25 hydrocodone 5 mg-acetaminophen 325 mg tablet Completed 01/04/2014 1 (one) Tablet Tablet: every four to six hours as needed ibuprofen Completed ? 10/13/2018 as needed ibuprofen 200 mg tablet Completed ? 07/25/19 20 Take 3 tablets every 6 hours by oral route as needed. lactulose 10 gram/15 mL oral solution Completed 07/21/2015 08/30/2015 30 Milliliter: daily as needed lisinopril 10 mg tablet Completed 04/09/2014 04/09/20 14 1 (one) Tablet: daily metoclopramide 10 mg tablet Completed ? 09/2019 neomycin 500 mg tablet Completed ? 8 omeprazole 40 mg Completed ? 10/25/2017 capsule,delayed release prochlorperazine maleate 10 mg Completed ? 0 12/01/2019 tablet propranolol 10 mg tablet Completed ? 018 propranolol 20 mg tablet Completed ? 019 propranolol 60 mg tablet Active ? Not abdiaziz ilable Take 1 tablet twice a day by oral route for 90 days. senna Completed ? 10/16/2019 2 tabs daily Problems Name Status Onset Date Source ? Atrial Fibrillation Active 10/13/2018 ? 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 Hypertensive Disorder Active 03/04/2020 ? Primary Malignant Neoplasm of Sigmoid Unknown ? History Colon Iron Deficiency Unknown ? History Body Mass Index 25-29 - Overweight Active ? History Impotence Active ? History Essential Tremor Active ? History Carpal Tunnel Syndrome Active ? ? Cubital Tunnel Syndrome Active ? ? Hearing Loss Active ? History Benign Essential Hypertension Unknown ? Hi story Hemorrhoids Unknown ? History Acute Sinusitis Unknown ? History Constipation Active ? History Occult Blood in Stools Unknown ? ? Procedures Date Name Performed by ? 10/22/2019 EGD/Endoscopy Information not avai lable Notes: afferent loop synd sherron; 08/28/2019 significant esophagitis and gastritis, w/ concern for malignancy, gastric outflow obsrrtuction. 03/25/18 Gastritis; 09-06-2017 10/20/2019 Port Vascular Access Insertion Informati on not available Notes: gastric cancer 09/04/2019 Subtotal Gastrectomy Information not abdiaziz ilable Notes: gastric adenocarcinoma. 12/02/2018 Colonoscopy Information not avai lable Notes: polyp of colon; Cancer of Sigmoid colon; 08/2013: abnormal left colon polyp 10/06/2017 Partial Removal of Colon Information not available Notes: Laparoscopic teresa xavi then open left hemicolectomy with colorectal anastomosis 08/25/2013 Hernia Repair Information not avai lable Notes: Left with hydrocelectomy 06/07/2012 Cataract Surgery Information not avai lable Notes: Bilateral 06/07/1970 Removal of Rib Information not avai lable Notes: Left first rib resection 01/23/2019 Holter Monitor [facility] Cardio pulmonary [address] [place] [address] (Work Place) Results Lab Results Date Name Specimen Result Interpretation Description Value Range Status Address ? 10/23/2019 BMP, Serum S High g/r 131 mg/dL 74-106 Final [place] or Plasma mg/dL [facility] (Internal) : [address] ? ? S ? Bun 16 mg/dL 9-20 [facility] mg/dL [facility] : [address] ? ? S ? Crea 0.80 0.66-1.25 Final [place] mg/dL mg/dL [facility] ([facility] : [address] t ? ? S ? Ca 8.6 mg/dL 8.4-10.2 Final [facility] mg/dL [facility] ([facility]) : [address] t ? ? S ? Na 140 137-145 Final [place] mmol/L mmol/L [facility] ([facility] : [address] ? ? S ? K 3.8 3.5-5.1 Final [place] mmol/L mmol/L [facility] ([facility] : [address] t ? ? S ? Cl 103 98-107 Final [place] mmol/L mmol/L [facility] ([facility]) : [address] t ? ? S ? Tco2 28.0 22.0-30.0 Final [place] mmol/L mmol/L [facility] ([facility]) : [address] t 10/22/2019 CBC W/ Auto BLD ? Wbc 5.9 5.0-10.0 Final [place] Diff 10*3/uL 10*3/uL [facility] ([facility]) : [address] t ? ? BLD Low Rbc 4.53 4.60-6.00 Final [place] 10*6/uL 10*6/uL [facility] (Internal) : [address] ? ? BLD Low Hgb 13.1 g/dL 14.0-18.0 Final Nort [facility] g/dL [facility] (Internal) : [address] ? ? BLD ? Hct 41.5 % 41.0-51.0 Final [place] % [facility] (Internal) : [address] ? ? BLD ? Mcv 91.6 fL 80.0-96.0 Final [place] fL [facility] (Internal) : [address] ? ? BLD ? Mch 28.9 pg 26.0-32.0 Final [facility] L ab (Internal) : [address] ? ? BLD ? Mchc 31.6 g/dL 31.0-35.0 Final Nort h g/dL [facility] L ab (Internal) : [address] ? ? BLD ? Rdw 14.0 % 11.5-14.5 Final [facility] L ab (Internal) : [address] ? ? BLD ? Plt 229 130-450 Final [place] 10*3/uL 10*3/uL [facility] (Internal) : [address] ? ? BLD ? Anc 4.25 ? Final [place] 10*3/uL [facility] L ab (Internal) : [address] ? ? BLD High Nlr 3.43 0.00-3.20 Final [facility] L ab (Internal) : [address] ? ? BLD ? Neutro 72.4 % 40.0-75.0 Final [facility] L ab (Internal) : [address] ? ? BLD ? Lymph 21.1 % 20.0-50.0 Final [facility] L ab (Internal) : [address] ? ? BLD ? Gallia 5.6 % 2.0-10.0 Final [facility] L ab (Internal) : [address] ? ? BLD Low Eos 0.2 % 1.0-6.0 % Final [facility] L ab (Internal) : [address] ? ? BLD ? Baso 0.5 % 0.0-1.0 % Final [facility] L ab (Internal) : [address] ? ? BLD ? Ig 0.2 % 0.0-0.9 % Final [facility] L ab (Internal) : [address] 10/22/2019 CMP, Serum S High g/r 167 mg/dL 74-106 Final [place] or Plasma mg/dL [facility] (Internal) : [address] ? ? S ? Bun 16 mg/dL 9-20 Final [facility] mg/dL [facility] ([facility]) : [address] ? ? S ? Crea 0.80 0.66-1.25 Final [facility] mg/dL mg/dL [facility] (Internal) : [address] ? ? S ? Ca 9.1 mg/dL 8.4-10.2 Final [facility] mg/dL [facility] (Internal) : [address] ? ? S ? Na 141 137-145 Final [facility] mmol/L mmol/L [facility] (Internal) : [address] ? ? S ? K 4.0 3.5-5.1 Final [facility] mmol/L mmol/L [facility] (Internal) : [address] ? ? S ? Cl 104 98-107 Final [facility] mmol/L mmol/L [facility] (Internal) : [address] ? ? S ? Tco2 26.0 22.0-30.0 Final [facility] mmol/L mmol/L [facility] (Internal) : [address] ? ? S ? Tp 6.9 g/dL 6.3-8.2 Final [facility] g/dL [facility] (Internal) : [address] ? ? S ? Alb 3.7 g/dL 3.5-5.0 Final [facility] g/dL [facility] (Internal) : [address] ? ? S ? Tbil 1.1 mg/dL 0.2-1.3 Final [facility] mg/dL [facility] ([facility]) : [address] ? ? S ? Alp 79 U/L 38-126 Final [facility] U/L [facility] ([facility]) : [address] ? ? S Low Alt 11 U/L 21-72 U/L Final [facility] (Sgpt) [facility] ([facility] : [address] ? ? S ? Ast 22 U/L 17-59 U/L Final [facility] (Sgot) [facility] ([facility] : [address] 10/22/2019 CRP, High S High Rcrp 1.05 0.10-0.30 Final [facility] Sensitivity mg/dL mg/dL Count ry , Serum or Hospit al Lab Plasma (Internal) : [address] 10/22/2019 Lipase, S High Lip 378 U/L 23-300 Final Nort h Serum or U/L [facility] L ab (Internal) : [address] 10/22/2019 Urinalysis, UR ? UA-colo yellow pale Final [place] Dipstick, r yellow [facility] L ab Micro (Internal) : [address] ? ? UR ? UA-appe clear clear Final [facility] (Internal) : [address] ? ? UR ? UA-spec 1.025 1.003-1.0 Final [place] Grav 35 [facility] L ab (Internal) : [address] ? ? UR ? UA-pH 5.0 [pH] 4.6-8.0 Final [place] [pH] [facility] L ab (Internal) : [address] ? ? UR ? UA-leuk negative negative Final Nort h Est [facility] L ab (Internal) : [address] ? ? UR ? UA-nitr negative negative Final Nort h ite [facility] (Internal) : [address] ? ? UR ABNORMAL UA-prot trace negative Final [facility] (Internal) : [address] ? ? UR ? UA-gluc trace negative Final [facility] L ab (Internal) : [address] ? ? UR ABNORMAL UA-keto trace negative Final Nort h [facility] L ab (Internal) : [address] ? ? UR ? UA-urob normal normal Final [facility] L ab (Internal) : [address] ? ? UR ? UA-bili negative negative Final Nort h [facility] (Internal) : [address] ? ? UR ? UA-bloo negative negative Final Nort h d [facility] (Internal) : [address] 10/22/2019 Urinalysis, UR ? UA-WBC 0-3 [hpf] 0-3 [hpf] F inal [place] Microscopic Count ry Hospital L ab (Internal) : [address] ? ? UR ? UA-RBC 0-2 [hpf] 0-2 [hpf] Final Nor th [facility] L ab (Internal) : [address] ? ? UR ? UA-bact rare none seen Final [place] eria [hpf] [hpf] [facility] ab (Internal) : [address] ? ? UR ABNORMAL UA-epit few [hpf] none seen Final [place] helial [hpf] [facility] ab (Internal) : [address] ? ? UR ABNORMAL UA-mucu few [hpf] none seen Final [place] s [hpf] [facility] ab (Internal) : [address] ? ? UR ? Hyaline rare ? Final [place] C [hpf] [facility] ab (Internal) : [address] ? ? UR ABNORMAL Unident ? none seen Final [facility] ified [hpf] [facility] L ab (Internal) : [address] 09/09/2019 CBC W/ Auto BLD ? Wbc 7.1 5.0-10.0 Final [place] Diff 10*3/uL 10*3/uL [facility] L ab (Internal) : [address] ? ? BLD Low Rbc 3.50 4.60-6.00 Final [place] 10*6/uL 10*6/uL [facility] L ab (Internal) : [address] ? ? BLD Low Hgb 10.2 g/dL 14.0-18.0 Final Nort h g/dL [facility] (Internal) : [address] ? ? BLD Low Hct 32.1 % 41.0-51.0 Final [place] % [facility] L ab (Internal) : [address] ? ? BLD ? Mcv 91.7 fL 80.0-96.0 Final [facility] L ab (Internal) : [address] ? ? BLD ? Mch 29.1 pg 26.0-32.0 Final [facility] ab (Internal) : [address] ? ? BLD ? Mchc 31.8 g/dL 31.0-35.0 Final Nort h g/dL [facility] L ab (Internal) : [address] ? ? BLD ? Rdw 13.3 % 11.5-14.5 Final [facility] L ab (Internal) : [address] ? ? BLD ? Plt 223 130-450 Final [place] 10*3/uL 10*3/uL [facility] L ab (Internal) : [address] ? ? BLD ? Anc 4.80 ? Final [place] 10*3/uL [facility] L ab (Internal) : [address] ? ? BLD ? Neutro 67.6 % 40.0-75.0 Final [facility] L ab (Internal) : [address] ? ? BLD Low Lymph 19.4 % 20.0-50.0 Final [facility] L ab (Internal) : [address] ? ? BLD ? Gallia 8.7 % 2.0-10.0 Final [facility] L ab (Internal) : [address] ? ? BLD ? Eos 2.8 % 1.0-6.0 % Final [facility] L ab (Internal) : [address] ? ? BLD ? Baso 0.7 % 0.0-1.0 % Final [facility] L ab (Internal) : [address] ? ? BLD ? Ig 0.8 % 0.0-0.9 % Final [facility] L ab (Internal) : [address] 09/09/2019 BMP, Serum S ? g/r 99 mg/dL 74-106 Final [place] or Plasma mg/dL [facility] L ab (Internal) : [address] ? ? S ? Bun 14 mg/dL 9-20 Final North mg/dL [facility] L ab (Internal) : [address] ? ? S Low Crea 0.60 0.66-1.25 Final [place] mg/dL mg/dL [facility] L ab (Internal) : [address] ? ? S ? Ca 8.6 mg/dL 8.4-10.2 Final [facility] mg/dL [facility] ([facility] : [address] ? ? S Low Na 135 137-145 Final [place] mmol/L mmol/L [facility] (Internal) : [address] ? ? S ? K 4.2 3.5-5.1 Final [place] mmol/L mmol/L [facility] (Internal) : [address] ? ? S ? Cl 102 98-107 Final [place] mmol/L mmol/L [facility] L ab (Internal) : [address] ? ? S ? Tco2 24.0 22.0-30.0 Final [place] mmol/L mmol/L [facility] (Internal) : [address] 09/09/2019 Magnesium, S ? mg 2.3 mg/dL 1.6-2.3 Final [place] QN, Serum mg/dL [facility] Hosp[facility] Lab (Internal) : [address] 09/09/2019 Phosphorus, S ? Phos 3.8 mg/dL 2.5-4.5 [place] l [place] Serum or mg/dL [facility] (Internal) : [address] 09/08/2019 CBC W/ Auto BLD ? Wbc 7.3 5.0-10.0 Final [place] Diff 10*3/uL 10*3/uL [facility] (Internal) : [address] ? ? BLD Low Rbc 3.23 4.60-6.00 Final [place] 10*6/uL 10*6/uL [facility] (Internal) : [address] ? ? BLD Low Hgb 9.6 g/dL 14.0-18.0 Final [place] g/dL [facility] (Internal) : [address] ? ? BLD Low Hct 29.8 % 41.0-51.0 Final [place] % [facility] L ab (Internal) : [address] ? ? BLD ? Mcv 92.3 fL 80.0-96.[address] [facility] L ab (Internal) : [address] ? ? BLD ? Mch 29.7 pg 26.0-32.[address] pg [facility] L ab (Internal) : [address] ? ? BLD ? Mchc 32.2 g/dL 31.0-35.0 Final Nort h g/dL [facility] L ab (Internal) : [address] ? ? BLD ? Rdw 13.2 % 11.5-14.5 Final [facility] L ab (Internal) : [address] ? ? BLD ? Plt 229 130-450 Final [place] 10*3/uL 10*3/uL [facility] L ab (Internal) : [address] ? ? BLD ? Anc 5.30 ? Final [place] 10*3/uL [facility] L ab (Internal) : [address] ? ? BLD ? Neutro 73.1 % 40.0-75.0 Final [facility] L ab (Internal) : [address] ? ? BLD Low Lymph 14.5 % 20.0-50.0 Final [facility] L ab (Internal) : [address] ? ? BLD ? Gallia 8.0 % 2.0-10.0 Final [facility] L ab (Internal) : [address] ? ? BLD ? Eos 3.0 % 1.0-6.0 % Final [facility] Hospital L ab (Internal) : [address] ? ? BLD ? Baso 0.6 % 0.0-1.0 % Final [facility] Hospital L ab (Internal) : [address] ? ? BLD ? Ig 0.8 % 0.0-0.9 % Final [facility] L ab (Internal) : [address] t 09/08/2019 BMP, Serum S High g/r 136 mg/dL 74-106 Final [place] or Plasma mg/dL [facility] L ab (Internal) : [address] ? ? S ? Bun 13 mg/dL 9-20 Final [place] mg/dL [facility] L ab (Internal) : [address] ? ? S Low Crea 0.50 0.66-1.25 Final [facility] mg/dL mg/dL [facility] ([facility]) : [address] ? ? S ? Ca 8.4 mg/dL 8.4-10.2 Final [facility] mg/dL [facility] (Internal) : [address] ? ? S Low Na 135 137-145 Final [facility] mmol/L mmol/L [facility] (Internal) : [address] ? ? S ? K 4.2 3.5-5.1 Final [place] mmol/L mmol/L [facility] (Internal) : [address] ? ? S ? Cl 101 98-107 Final [facility] mmol/L mmol/L [facility] (Internal) : [address] ? ? S ? Tco2 26.0 22.0-30.0 Final [facility] mmol/L mmol/L [facility] (Internal) : [address] 09/08/2019 Magnesium, S ? mg 2.2 mg/dL 1.6-2.3 Final [place] QN, Serum mg/dL [facility] Lab (Internal) : [address] 09/08/2019 Phosphorus, S ? Phos 4.4 mg/dL 2.5-4.5 [place] [place] Serum or mg/dL [facility] (Internal) : [address] 09/07/2019 BMP, Serum S High g/r 118 mg/dL 74-106 Final [place] or Plasma mg/dL [facility] (Internal) : [address] ? ? S ? Bun 13 mg/dL 9-20 Final [facility] mg/dL [facility] (Internal) : [address] ? ? S Low Crea 0.50 0.66-1.25 Final [facility] mg/dL mg/dL [facility] (Internal) : [address] ? ? S Low Ca 8.1 mg/dL 8.4-10.2 Final [facility] mg/dL [facility] (Internal) : [address] ? ? S Low Na 135 137-145 Final [facility] mmol/L mmol/L [facility] (Internal) : [address] ? ? S ? K 4.2 3.5-5.1 Final [place] mmol/L mmol/L [facility] L ab (Internal) : [address] ? ? S ? Cl 102 98-107 Final [place] mmol/L mmol/L [facility] L ab (Internal) : [address] ? ? S ? Tco2 26.0 22.0-30.0 Final [place] mmol/L mmol/L [facility] L ab (Internal) : [address] 09/07/2019 Magnesium, S ? mg 2.0 mg/dL 1.6-2.3 Final [place] QN, Serum mg/dL [facility] Lab (Internal) : [address] t 09/07/2019 Phosphorus, S ? Phos 3.5 mg/dL 2.5-4.5 Janeen l [place] Serum or mg/dL [facility] Hospital L ab (Internal) : [address] 09/07/2019 CBC W/ Auto BLD High Wbc 10.6 5.0-10.0 Final [place] Diff 10*3/uL 10*3/uL [facility] L ab (Internal) : [address] ? ? BLD Low Rbc 3.03 4.60-6.00 Final [place] 10*6/uL 10*6/uL [facility] L ab (Internal) : [address] ? ? BLD Low Hgb 9.1 g/dL 14.0-18.0 Final [place] g/dL [facility] L ab (Internal) : [address] ? ? BLD Low Hct 28.2 % 41.0-51.0 Final [place] % [facility] L ab (Internal) : [address] ? ? BLD ? Mcv 93.1 fL 80.0-96.[address] [place] [address] [facility] L ab (Internal) : [address] ? ? BLD ? Mch 30.0 pg 26.0-32.[address] [place] [address] [facility] L ab (Internal) : [address] ? ? BLD ? Mchc 32.3 g/dL 31.0-35.0 Final Nort h g/dL [facility] L ab (Internal) : [address] ? ? BLD ? Rdw 13.1 % 11.5-14.5 Final [facility] L ab (Internal) : [address] ? ? BLD ? Plt 163 130-450 Final [place] 10*3/uL 10*3/uL [facility] L ab (Internal) : [address] 09/07/2019 Differentia BLD High Polys 81 % 40-75 % Final [facility], Manual, Countr y Blood Hospital L ab (Internal) : [address] ? ? BLD ? Bands 0 % 0-5 % Final [facility] ab (Internal) : [address] ? ? BLD Low Lymphs 14 % 20-50 % Final [facility] ab (Internal) : [address] ? ? BLD ? Gallia 3 % 2-10 % Final [facility] ab (Internal) : [address] ? ? BLD ? Eos 1 % 0-6 % Final [facility] ab (Internal) : [address] ? ? BLD ? Baso 1 % 0-1 % Final [facility] ab (Internal) : [address] ? ? BLD ? Atyp 0 % ? Final [facility] ab (Internal) : [address] ? ? BLD ? Plts, adequate adequate Final [facility] ab (Internal) : [address] ? ? BLD ? RBC normal normal Final [facility] L ab (Internal) : [address] ? ? BLD ? Dohle rare ? Final [facility] ab (Internal) : [address] 09/07/2019 Neutrophil BLD ? Anc-man 8.61 ? Final [place] Count, ual 10*3/uL [facility] Hospital Lab (Anc), (Internal) : Blood [address] 09/06/2019 CBC W/ Auto BLD High Wbc 12.3 5.0-10.0 Final [place] Diff 10*3/uL 10*3/uL [facility] Hospital L ab (Internal) : [address] ? ? BLD Low Rbc 2.71 4.60-6.00 Final [place] 10*6/uL 10*6/uL [facility] L ab (Internal) : [address] ? ? BLD Low Hgb 8.8 g/dL 14.0-18.0 Final [place] g/dL [facility] L ab (Internal) : [address] ? ? BLD Low Hct 29.3 % 41.0-51.0 Final [facility] L ab (Internal) : [address] ? ? BLD High Mcv 108.1 fL 80.0-96.0 Final [facility] L ab (Internal) : [address] ? ? BLD High Mch 32.5 pg 26.0-32.0 Final [facility] L ab (Internal) : [address] ? ? BLD Low Mchc 30.0 g/dL 31.0-35.0 Final Nort h g/dL [facility] L ab (Internal) : [address] ? ? BLD ? Rdw 13.7 % 11.5-14.5 Final [facility] L ab (Internal) : [address] ? ? BLD Low Plt 92 130-450 Final [place] 10*3/uL 10*3/uL [facility] L ab (Internal) : [address] 09/06/2019 CBC W/ Auto BLD High Wbc 13.6 5.0-10.0 Correc [facility] Diff 10*3/uL 10*3/uL [facility] L ab (Internal) : [address] ? ? BLD Low Rbc 3.02 4.60-6.00 Corrected Nort h 10*6/uL 10*6/uL [facility] L ab (Internal) : [address] ? ? BLD Low Hgb 9.1 g/dL 14.0-18.0 Corrected No rth g/dL [facility] L ab (Internal) : [address] ? ? BLD Low Hct 28.6 % 41.0-51.0 Corrected Nort [facility] % [facility] (Internal) : [address] ? ? BLD ? Mcv 94.7 fL 80.0-96.[address] fL [facility] L ab (Internal) : [address] ? ? BLD ? Mch 30.1 pg 26.0-32.[address] pg [facility] L ab (Internal) : [address] ? ? BLD ? Mchc 31.8 g/dL 31.0-35.0 Corrected N orth g/dL [facility] (Internal) : [address] ? ? BLD ? Rdw 13.2 % 11.5-14.5 Corrected Nort h % [facility] L ab (Internal) : [address] ? ? BLD ? Plt 135 130-450 Corrected North 10*3/uL 10*3/uL [facility] L ab (Internal) : [address] 09/06/2019 Differentia BLD High Polys 87 % 40-75 % Final [facility], Manual, Countr y Blood Hospital L ab (Internal) : [address] ? ? BLD ? Bands 1 % 0-5 % Final [facility] L ab (Internal) : [address] ? ? BLD Low Lymphs 7 % 20-50 % Final [facility] L ab (Internal) : [address] ? ? BLD ? Gallia 3 % 2-10 % Final [facility] L ab (Internal) : [address] [place] ? ? BLD ? Eos 1 % 0-6 % Final [facility] Hospital L ab (Internal) : [address] ? ? BLD ? Baso 0 % 0-1 % Final [facility] L ab (Internal) : [address] ? ? BLD ? Atyp 0 % ? Final [facility] Hospital L ab (Internal) : [address] ? ? BLD ? [place] 1 % ? Final [facility] Hospital L ab (Internal) : [address] ? ? BLD ? Plts, adequate adequate Final [facility] Hospital L ab (Internal) : [address] [place] ? ? BLD ? RBC normal normal [facility] L ab (Internal[facility] : [address] ? ? BLD ? Dohle rare ? Final [facility] Hospital L ab (Internal) : [address] ? ? BLD ? Toxic occasiona ? Final [facility] l [facility] L ab (Internal) : [address] 09/06/2019 Neutrophil BLD ? Anc-man 11.98 ? Final [place] Count, ual 10*3/uL [facility] Hospital Lab (Anc), (Internal) : Blood [address] 09/06/2019 Magnesium, S ? mg 2.2 mg/dL 1.6-2.3 Final [place] QN, Serum mg/dL [facility] or [facility] l Lab (Internal) : [address] 09/06/2019 Phosphorus, S ? Phos 2.7 mg/dL 2.5-4.5 Janeen l [place] Serum or mg/dL [facility] L ab (Internal) : [address] 09/06/2019 BMP, Serum S High g/r 192 mg/dL 74-106 Final North or Plasma mg/dL [facility] L ab (Internal) : [address] ? ? S ? Bun 15 mg/dL 9-20 Final [place] mg/dL [facility] L ab (Internal) : [address] t ? ? S Low Crea 0.50 0.66-1.25 Final [place] mg/dL mg/dL [facility] L ab (Internal) : [address] t ? ? S Low Ca 7.8 mg/dL 8.4-10.2 Final North mg/dL [facility] L ab (Internal) : [address] t ? ? S Low Na 136 137-145 Final North mmol/L mmol/L [facility] L ab (Internal) : [address] t ? ? S ? K 4.4 3.5-5.1 Final [place] mmol/L mmol/L [facility] L ab (Internal) : [address] t ? ? S ? Cl 103 98-107 Final [facility] mmol/L mmol/L [facility] (Internal) : [address] t ? ? S ? Tco2 27.0 22.0-30.0 Final [place] mmol/L mmol/L [facility] L [facility] (Internal) : [address] 09/06/2019 Prealbumin, S Low Prealbu 6 mg/dL 20-40 Final [place] Serum min mg/dL [facility] L [facility] (Internal) : [address] 09/05/2019 CBC W/ Auto BLD ? Wbc please 5.0-10.0 Correc xavi [place] Diff disregard 10*3/uL Countr y results, Hospital Lab sample IS (Install And Repair Technician al): contamina [address], [place] recol[place] ed 10*3/uL ? ? BLD ? Rbc please 4.60-6.00 Corrected Nort h disregard 10*6/uL Countr y results, Hospital Lab sample IS (Install And Repair Technician al): contamina [address], [place] recollect ed 10*6/uL ? ? BLD ? Hgb please 14.0-18.0 Corrected Nort h disregard g/dL [facility] results, Hospital Lab sample IS (Install And Repair Technician al): contamina [address], [place] recollect [place] g/dL ? ? BLD ? Hct please 41.0-51.0 Corrected Nort h disregard % [facility] results, Hospital Lab sample IS (Install And Repair Technician al): contamina [address], [place] recollect ed % ? ? BLD ? Mcv please 80.0-96.0 Corrected Nort h disregard fL [facility] results, Hospital Lab sample IS (Install And Repair Technician al): contamina [address], [place] recollect [place] fL ? ? BLD ? Mch please 26.0-32.0 Corrected Nort h disregard pg [facility] results, Hospital Lab sample IS (Install And Repair Technician al): contamina [address], [place] recollect ed pg ? ? BLD ? Mchc please 31.0-35.0 Corrected Nort h disregard g/dL [facility] results, Hospital Lab sample IS (Install And Repair Technician al): melissaa [address], [place] recollect [place] g/dL ? ? BLD ? Rdw please 11.5-14.5 Corrected Nort h disregard % Country results, Hospital Lab sample IS (Install And Repair Technician al): contamina [address], [place] recollect ed % ? ? BLD ? Plt please 130-450 Corrected North disregard 10*3/uL Countr y results, Hospital Lab sample IS (Install And Repair Technician al): contamina [address], [place] recollect ed 10*3/uL 09/05/2019 BMP, Serum S High g/r 170 mg/dL 74-106 Final [place] or Plasma mg/dL [facility] L [facility] (Internal) : [address] t ? ? S ? Bun 15 mg/dL 9-20 Final [facility] mg/dL [facility] (Internal) : [address] t ? ? S Low Crea 0.60 0.66-1.25 Final [place] mg/dL mg/dL [facility] L [facility] (Internal) : [address] t ? ? S Low Ca 7.8 mg/dL 8.4-10.2 Final [facility] mg/dL [facility] (Internal) : [address] t ? ? S Low Na 136 137-145 Final [facility] mmol/L mmol/L [facility] (Internal) : [address] ? ? S ? K 4.4 3.5-5.1 Final [place] mmol/L mmol/L [facility] (Internal) : [address] ? ? S ? Cl 102 98-107 Final [place] mmol/L mmol/L [facility] L [facility] (Internal) : [address] t ? ? S ? Tco2 27.0 22.0-30.0 Final [facility] mmol/L mmol/L [facility] (Internal) : [address] 09/05/2019 Magnesium, S ? mg 2.0 mg/dL 1.6-2.3 Final [place] QN, Serum mg/dL [facility] or Plasma Hospita l Lab (Internal) : [address] 09/05/2019 Phosphorus, S ? Phos 3.8 mg/dL 2.5-4.5 [place] Serum or mg/dL [facility] L [facility] (Internal) : [address] t 09/05/2019 Triglycerid S ? Trig 52 mg/dL 10-150 Final [place] es, Serum mg/dL [facility] (Internal) : [address] t 09/04/2019 CBC W/ Auto BLD ? Wbc 8.0 5.0-10.0 Final [place] Diff 10*3/uL 10*3/uL [facility] (Internal) : [address] ? ? BLD Low Rbc 3.56 4.60-6.00 Final [place] 10*6/uL 10*6/uL [facility] (Internal) : [address] t ? ? BLD Low Hgb 10.9 g/dL 14.0-18.0 Final Nort h g/dL [facility] L ab (Internal) : [address] ? ? BLD Low Hct 33.6 % 41.0-51.0 Final [facility] Hospital L ab (Internal) : [address] ? ? BLD ? Mcv 94.4 fL 80.0-96.[address] [facility] Hospital L ab (Internal) : [address] ? ? BLD ? Mch 30.6 pg 26.0-32.0 Final [facility] Hospital L ab (Internal) : [address] ? ? BLD ? Mchc 32.4 g/dL 31.0-35.0 Final Nort h g/dL [facility] L ab (Internal) : [address] ? ? BLD ? Rdw 13.1 % 11.5-14.5 Final [facility] Hospital L ab (Internal) : [address] t ? ? BLD ? Plt 157 130-450 Final [place] 10*3/uL 10*3/uL [facility] L ab (Internal) : [address] ? ? BLD ? Anc 5.95 ? Final [place] 10*3/uL [facility] L ab (Internal) : [address] ? ? BLD ? Neutro 74.7 % 40.0-75.0 Final [facility] Hospital L ab (Internal) : [address] ? ? BLD Low Lymph 11.5 % 20.0-50.0 Final [facility] % [facility] (Internal) : [address] ? ? BLD ? Gallia 9.8 % 2.0-10.0 Final [facility] % [facility] L [facility] (Internal) : [address] ? ? BLD ? Eos 2.0 % 1.0-6.0 % Final [facility] Hospital L ab (Internal) : [address] ? ? BLD ? Baso 0.5 % 0.0-1.0 % Final [facility] Hospital L ab (Internal) : [address] t ? ? BLD High Ig 1.5 % 0.0-0.9 % Final [facility] Hospital L ab (Internal) : [address] t 09/04/2019 Magnesium, S ? mg 1.9 mg/dL 1.6-2.3 Final North QN, Serum mg/dL [facility] or Plasma Hospita l Lab (Internal) : [address] t 09/04/2019 Phosphorus, S ? Phos 3.6 mg/dL 2.5-4.5 [place] l [place] Serum or mg/dL [facility] L [facility] (Internal) : [address] t 09/04/2019 CMP, Serum S High g/r 154 mg/dL 74-106 Final [place] or Plasma mg/dL [facility] (Internal) : [address] ? ? S ? Bun 11 mg/dL 9-20 Final [facility] mg/dL [facility] (Internal) : [address] ? ? S Low Crea 0.60 0.66-1.25 Final [place] mg/dL mg/dL [facility] L [facility] (Internal) : [address] ? ? S Low Ca 8.3 mg/dL 8.4-10.2 Final [facility] mg/dL [facility] (Internal) : [address] ? ? S Low Na 136 137-145 Final [place] mmol/L mmol/L [facility] L [facility] (Internal) : [address] ? ? S ? K 3.9 3.5-5.1 Final [place] mmol/L mmol/L [facility] L ab (Internal) : [address] ? ? S ? Cl 101 98-107 Final [place] mmol/L mmol/L [facility] L ab (Internal) : [address] ? ? S ? Tco2 25.0 22.0-30.0 Final [place] mmol/L mmol/L [facility] L ab (Internal) : [address] ? ? S Low Tp 5.8 g/dL 6.3-8.2 Final [place] g/dL [facility] L ab (Internal) : [address] ? ? S Low Alb 2.8 g/dL 3.5-5.0 Final [place] g/dL [facility] L ab (Internal) : [address] ? ? S ? Tbil 0.7 mg/dL 0.2-1.3 Final [place] mg/dL [facility] L ab (Internal) : [address] ? ? S ? Alp 91 U/L 38-126 Final [place] U/L [facility] L ab (Internal) : [address] ? ? S Low Alt 15 U/L 21-72 U/L Final [place] (Sgpt) [facility] L ab (Internal) : [address] ? ? S ? Ast 25 U/L 17-59 U/L Final [place] (Sgot) [facility] L ab (Internal) : [address] 09/04/2019 Prothrombin BLD ? Pt 11.5 S 9.1-11.7 Final [facility] L ab (Internal) : [address] ? ? BLD ? Inr 1.1 ? Final [facility] L ab (Internal) : [address] 09/04/2019 Partial BLD ? PTT 24 s 22-35 s Final Nort h Thromboplas (Ip) Count [facility] Lab (Internal) : [address] 09/04/2019 Type + BLD ? Abo Ab ? Final [facility] L ab (Internal) : [address] ? ? BLD ? Rh positive ? Final [facility] L ab (Internal) : [address] ? ? BLD ? Ab Scrn negative negative Final Nort h [facility] Hospital L ab (Internal) : [address] 09/04/2019 CBC W/ Auto BLD High Wbc 12.3 5.0-10.0 Final [place] Diff 10*3/uL 10*3/uL [facility] L ab (Internal) : [address] ? ? BLD Low Rbc 3.49 4.60-6.00 Final [place] 10*6/uL 10*6/uL [facility] Hospital L ab (Internal) : [address] ? ? BLD Low Hgb 10.6 g/dL 14.0-18.0 Final Nort h g/dL [facility] L ab (Internal) : [address] ? ? BLD Low Hct 32.8 % 41.0-51.0 Final [facility] L ab (Internal) : [address] ? ? BLD ? Mcv 94.0 fL 80.0-96.0 Final [facility] L ab (Internal) : [address] ? ? BLD ? Mch 30.4 pg 26.0-32.0 Final [facility] L ab (Internal) : [address] ? ? BLD ? Mchc 32.3 g/dL 31.0-35.0 Final Nort h g/dL [facility] L ab (Internal) : [address] ? ? BLD ? Rdw 13.1 % 11.5-14.5 Final [facility] L ab (Internal) : [address] ? ? BLD ? Plt 201 130-450 Final [place] 10*3/uL 10*3/uL [facility] L ab (Internal) : [address] 09/04/2019 Differentia BLD ? Polys 75 % 40-75 % Final [facility], Manual, Countr y Blood Hospital L ab (Internal) : [address] ? ? BLD High Bands 10 % 0-5 % Final [facility] L ab (Internal) : [address] ? ? BLD Low Lymphs 5 % 20-50 % Final [facility] (Internal[facility] : [address] ? ? BLD ? Gallia 9 % 2-10 % Final [facility] Hospital L ab (Internal) : [address] ? ? BLD ? Eos 1 % 0-6 % Final [facility] L ab (Internal) : [address] ? ? BLD ? Baso 0 % 0-1 % Final [facility] Hospital L ab (Internal) : [address] ? ? BLD ? Atyp 0 % ? Final [facility] Hospital L ab (Internal) : [address] ? ? BLD ? Plts, adequate adequate Final [place] Est. [facility] L ab (Internal) : [address] ? ? BLD ? RBC normal normal Final [facility] Hospital L ab (Internal) : [address] 09/04/2019 Neutrophil BLD ? Anc-man 10.46 ? Final [place] Count, ual 10*3/uL [facility] Hospital Lab (Anc), (Internal) : Blood [address] 09/04/2019 Pathology TISS ? Report (see ? Final No rth Study below) [facility] L ab (Internal) : [address] 09/03/2019 BMP, Serum S High g/r 171 mg/dL 74-106 Final [place] or Plasma mg/dL [facility] L ab (Internal) : [address] ? ? S ? Bun 11 mg/dL 9-20 Final [place] mg/dL [facility] L ab (Internal) : [address] ? ? S Low Crea 0.50 0.66-1.25 Final [place] mg/dL mg/dL [facility] L ab (Internal) : [address] ? ? S Low Ca 7.9 mg/dL 8.4-10.2 Final [place] mg/dL [facility] L ab (Internal) : [address] ? ? S Low Na 135 137-145 Final [place] mmol/L mmol/L [facility] L ab (Internal) : [address] ? ? S ? K 3.7 3.5-5.1 Final [place] mmol/L mmol/L [facility] (Internal) : [address] ? ? S ? Cl 103 98-107 Final [place] mmol/L mmol/L [facility] L [facility] (Internal) : [address] ? ? S ? Tco2 24.0 22.0-30.0 Final [place] mmol/L mmol/L [facility] L [facility] (Internal) : [address] 09/03/2019 Magnesium, S ? mg 1.9 mg/dL 1.6-2.3 Final [place] QN, Serum mg/dL [facility] or Plasma Hospita l Lab (Internal) : [address] 09/03/2019 Phosphorus, S ? Phos 2.5 mg/dL 2.5-4.5 [place] l [place] Serum or mg/dL [facility] L ab (Internal) : [address] 09/02/2019 BMP, Serum S High g/r 167 mg/dL 74-106 Final [place] or Plasma mg/dL [facility] (Internal) : [address] ? ? S ? Bun 10 mg/dL 9-20 Final [facility] mg/dL [facility] (Internal) : [address] ? ? S Low Crea 0.50 0.66-1.25 Final [place] mg/dL mg/dL [facility] L [facility] (Internal) : [address] ? ? S Low Ca 8.0 mg/dL 8.4-10.2 Final [facility] mg/dL [facility] (Internal) : [address] ? ? S ? Na 137 137-145 Final [place] mmol/L mmol/L [facility] (Internal) : [address] ? ? S Low K 3.3 3.5-5.1 Final [place] mmol/L mmol/L [facility] L [facility] (Internal) : [address] ? ? S ? Cl 103 98-107 Final [place] mmol/L mmol/L [facility] L [facility] (Internal) : [address] ? ? S ? Tco2 26.0 22.0-30.0 Final [place] mmol/L mmol/L [facility] L [facility] (Internal) : [address] 09/02/2019 Magnesium, S ? mg 1.8 mg/dL 1.6-2.3 Final [place] QN, Serum mg/dL [facility] or Plasma Hospita l Lab (Internal) : [address] [facility] 09/02/2019 Phosphorus, S ? Phos 2.9 mg/dL 2.5-4.5 Jane[place] Serum or mg/dL [facility] L ab (Internal) : [address] [facility] 09/02/2019 Vancomycin, S Low Vanco, 6.7 ug/mL 15.0-20.0 F inal [place] Trough, Trough ug/mL [facility] Serum Hospital L ab (Internal) : [address] [facility] 09/01/2019 Magnesium, S ? mg 1.9 mg/dL 1.6-2.3 Final [place] QN, Serum mg/dL [facility] or Plasma Hospita l Lab (Internal) : [address] [facility] 09/01/2019 Phosphorus, S Low Phos 2.1 mg/dL 2.5-4.5 Jane[place] Serum or mg/dL [facility] L ab (Internal) : [address] [facility] 09/01/2019 BMP, Serum S High g/r 147 mg/dL 74-106 Final [place] or Plasma mg/dL [facility] L [facility] (Internal) : [address] ? ? S ? Bun 14 mg/dL 9-20 Final [facility] mg/dL [facility] L [facility] (Internal) : [address] ? ? S Low Crea 0.60 0.66-1.25 Final [facility] mg/dL mg/dL [facility] L [facility] (Internal) : [address] ? ? S Low Ca 7.7 mg/dL 8.4-10.2 Final [facility] mg/dL [facility] L [facility] (Internal) : [address] ? ? S ? Na 137 137-145 Final [place] mmol/L mmol/L [facility] L [facility] (Internal) : [address] ? ? S Low K 3.3 3.5-5.1 Final [facility] mmol/L mmol/L [facility] L [facility] (Internal) : [address] ? ? S ? Cl 106 98-107 Final [facility] mmol/L mmol/L [facility] L [facility] (Internal) : [address] ? ? S ? Tco2 22.0 22.0-30.0 Final [facility] mmol/L mmol/L [facility] L [facility] (Internal) : [address] 08/31/2019 Magnesium, S ? mg 2.0 mg/dL 1.6-2.3 Final [place] QN, Serum mg/dL [facility] or Plasma Hospita l Lab (Internal) : [address] 08/31/2019 Phosphorus, S Low Phos 1.9 mg/dL 2.5-4.5 Janeen l [place] Serum or mg/dL [facility] L [facility] (Internal) : [address] 08/31/2019 BMP, Serum S High g/r 158 mg/dL 74-106 Final [place] or Plasma mg/dL [facility] L [facility] (Internal) : [address] ? ? S High Bun 22 mg/dL 9-20 Final [facility] mg/dL [facility] L [facility] (Internal) : [address] ? ? S ? Crea 0.80 0.66-1.25 Final [place] mg/dL mg/dL [facility] L [facility] (Internal) : [address] ? ? S Low Ca 7.3 mg/dL 8.4-10.2 Final [facility] mg/dL [facility] L [facility] (Internal) : [address] ? ? S ? Na 138 137-145 Final [facility] mmol/L mmol/L [facility] L [facility] (Internal) : [address] ? ? S Low K 3.4 3.5-5.1 Final [place] mmol/L mmol/L [facility] L [facility] (Internal) : [address] ? ? S High Cl 108 98-107 Final [place] mmol/L mmol/L [facility] L [facility] (Internal) : [address] ? ? S ? Tco2 23.0 22.0-30.0 Final [place] mmol/L mmol/L [facility] L [facility] (Internal) : [address] 08/31/2019 CBC W/ Auto BLD High Wbc 11.2 5.0-10.0 Final [place] Diff 10*3/uL 10*3/uL [facility] Hospital L ab (Internal) : [address] ? ? BLD Low Rbc 3.38 4.60-6.00 Final [place] 10*6/uL 10*6/uL [facility] L ab (Internal) : [address] ? ? BLD Low Hgb 10.6 g/dL 14.0-18.0 Final Nort h g/dL [facility] L ab (Internal) : [address] ? ? BLD Low Hct 31.5 % 41.0-51.0 Final [facility] L ab (Internal) : [address] ? ? BLD ? Mcv 93.2 fL 80.0-96.0 Final [facility] L ab (Internal) : [address] ? ? BLD ? Mch 31.4 pg 26.0-32.0 Final [facility] L ab (Internal) : [address] ? ? BLD ? Mchc 33.7 g/dL 31.0-35.0 Final Nort h g/dL [facility] L ab (Internal) : [address] ? ? BLD ? Rdw 13.1 % 11.5-14.5 Final [facility] L ab (Internal) : [address] ? ? BLD ? Plt 152 130-450 Final [place] 10*3/uL 10*3/uL [facility] L ab (Internal) : [address] 08/31/2019 Differentia BLD ? Polys 67 % 40-75 % Final [facility] Manual, Countr y Blood Hospital L ab (Internal) : [address] ? ? BLD High Bands 14 % 0-5 % Final [facility] ab (Internal) : [address] ? ? BLD Low Lymphs 9 % 20-50 % Final [facility] L ab (Internal) : [address] ? ? BLD ? Gallia 8 % 2-10 % Final [facility] L ab (Internal) : [address] ? ? BLD ? Eos 0 % 0-6 % Final [facility] Hospital L ab (Internal) : [address] ? ? BLD ? Baso 0 % 0-1 % Final [facility] Hospital L ab (Internal) : [address] ? ? BLD ? Atyp 0 % ? Final [facility] Hospital L ab (Internal) : [address] ? ? BLD ? [place] 2 % ? Final [facility] Hospital L ab (Internal) : [address] ? ? BLD ? Plts, adequate adequate Final [place] Est. [facility] L ab (Internal) : [address] ? ? BLD ? RBC normal normal Final [place] [facility] Hospital L ab (Internal) : [address] ? ? BLD ? Dohle rare ? Final [facility] Hospital L ab (Internal) : [address] 08/31/2019 Neutrophil BLD ? Anc-man 9.07 ? Final [place] Count, ual 10*3/uL [facility] Lab (Anc), (Internal) : Blood [address] 08/31/2019 Triglycerid S ? Trig 59 mg/dL 10-150 Final [place] es, Serum mg/dL [facility] Hospital L ab (Internal) : [address] 08/31/2019 Hepatic S ? Tbil 0.5 mg/dL 0.2-1.3 Final N orth Function mg/dL [facility] Hospital L ab Serum (Internal) : [address] ? ? S ? Dbil 0.3 mg/dL 0.0-0.3 Final [place] mg/dL [facility] Hospital L ab (Internal) : [address] ? ? S ? Alp 56 U/L 38-126 Final [place] U/L [facility] Hospital L ab (Internal) : [address] ? ? S ? Alt 21 U/L 21-72 U/L Final [place] (Sgpt) [facility] L ab (Internal) : [address] ? ? S ? Ast 36 U/L 17-59 U/L Final [place] (Sgot) [facility] Hospital L ab (Internal) : [address] ? ? S ? Ggt 39 U/L 15-73 U/L Final [place] [facility] (Internal) : [address] ? ? S Low Tp 4.8 g/dL 6.3-8.2 Final [facility] g/dL [facility] L [facility] (Internal) : [address] ? ? S Low Alb 2.3 g/dL 3.5-5.0 Final [facility] g/dL [facility] L [facility] (Internal) : [address] 08/30/2019 Magnesium, S ? mg 1.8 mg/dL 1.6-2.3 Final [place] QN, Serum mg/dL [facility] or Plasma Hospita l Lab (Internal) : [address] 08/30/2019 Phosphorus, S ? Phos 3.2 mg/dL 2.5-4.5 Janeen l [place] Serum or mg/dL [facility] L ab (Internal) : [address] 08/30/2019 BMP, Serum S High g/r 136 mg/dL 74-106 Final [place] or Plasma mg/dL [facility] L [facility] (Internal) : [address] ? ? S ? Bun 15 mg/dL 9-20 Final [facility] mg/dL [facility] L [facility] (Internal) : [address] ? ? S ? Crea 0.80 0.66-1.25 Final [place] mg/dL mg/dL [facility] L [facility] (Internal) : [address] ? ? S ? Ca 8.5 mg/dL 8.4-10.2 Final [facility] mg/dL [facility] L ab (Internal) : [address] ? ? S ? Na 138 137-145 Final [place] mmol/L mmol/L [facility] L ab (Internal) : [address] ? ? S ? K 4.3 3.5-5.1 Final [place] mmol/L mmol/L [facility] L ab (Internal) : [address] ? ? S ? Cl 101 98-107 Final [place] mmol/L mmol/L [facility] L ab (Internal) : [address] ? ? S ? Tco2 27.0 22.0-30.0 Final [place] mmol/L mmol/L [facility] Hospital L ab (Internal) : [address] 08/29/2019 Cbc BLD ? Wbc 5.4 5.0-10.0 Final Nort h 10*3/uL 10*3/uL [facility] Hospital L ab (Internal) : [address] ? ? BLD Low Rbc 4.06 4.60-6.00 Final [place] 10*6/uL 10*6/uL [facility] Hospital L ab (Internal) : [address] ? ? BLD Low Hgb 12.4 g/dL 14.0-18.0 Final Nort h g/dL [facility] Hospital L ab (Internal) : [address] ? ? BLD Low Hct 37.8 % 41.0-51.0 Final [facility] Hospital L ab (Internal) : [address] ? ? BLD ? Mcv 93.1 fL 80.0-96.[address] [facility] Hospital L ab (Internal) : [address] ? ? BLD ? Mch 30.5 pg 26.0-32.0 Final [place] pg [facility] L ab (Internal) : [address] ? ? BLD ? Mchc 32.8 g/dL 31.0-35.0 Final Nort h g/dL [facility] Hospital L ab (Internal) : [address] ? ? BLD ? Rdw 12.4 % 11.5-14.5 Final [facility] L ab (Internal) : [address] ? ? BLD ? Plt 205 130-450 Final [place] 10*3/uL 10*3/uL [facility] Hospital L ab (Internal) : [address] ? ? BLD ? Anc 3.21 ? Final [place] 10*3/uL [facility] Hospital L ab (Internal) : [address] 08/29/2019 BMP, Serum S ? g/r 84 mg/dL 74-106 Final [place] or Plasma mg/dL [facility] Hospital L ab (Internal) : [address] ? ? S ? Bun 14 mg/dL 9-20 Final North mg/dL [facility] Hospital L ab (Internal) : [address] ? ? S ? Crea 0.80 0.66-1.25 Final [facility] mg/dL mg/dL [facility] (Internal) : [address] ? ? S Low Ca 8.0 mg/dL 8.4-10.2 Final [facility] mg/dL [facility] L [facility] (Internal) : [address] ? ? S ? Na 138 137-145 Final [facility] mmol/L mmol/L [facility] L [facility] (Internal) : [address] ? ? S ? K 4.0 3.5-5.1 Final [facility] mmol/L mmol/L [facility] L [facility] (Internal) : [address] ? ? S ? Cl 106 98-107 Final [facility] mmol/L mmol/L [facility] L [facility] (Internal) : [address] ? ? S ? Tco2 22.0 22.0-30.0 Final [place] mmol/L mmol/L [facility] L [facility] (Internal) : [address] t 08/28/2019 Cbc BLD ? Wbc 5.8 5.0-10.0 Final Nort h 10*3/uL 10*3/uL [facility] L [facility] (Internal) : [address] ? ? BLD Low Rbc 4.19 4.60-6.00 Final [facility] 10*6/uL 10*6/uL [facility] L [facility] (Internal) : [address] ? ? BLD Low Hgb 12.8 g/dL 14.0-18.0 Final [facility] g/dL [facility] L [facility] (Internal) : [address] ? ? BLD Low Hct 40.2 % 41.0-51.0 Final [place] % [facility] Hospital L ab (Internal) : [address] ? ? BLD ? Mcv 95.9 fL 80.0-96.[address] [place] [address] [facility] L ab (Internal) : [address] ? ? BLD ? Mch 30.5 pg 26.0-32.[address] [place] [address] [facility] L ab (Internal) : [address] ? ? BLD ? Mchc 31.8 g/dL 31.0-35.0 Final Nort [facility] g/dL [facility] L [facility] (Internal) : [address] ? ? BLD ? Rdw 12.6 % 11.5-14.5 Final [facility] % [facility] (Internal) : [address] ? ? BLD ? Plt 237 130-450 Final [facility] 10*3/uL 10*3/uL [facility] ([facility]) : [address] t ? ? BLD ? Anc 3.48 ? Final [place] 10*3/uL [facility] ([facility]) : [address] 08/28/2019 BMP, Serum S ? g/r 97 mg/dL 74-106 Final [place] or Plasma mg/dL [facility] ([facility]) : [address] t ? ? S ? Bun 17 mg/dL 9-20 Final [place] mg/dL [facility] ([facility]) : [address] t ? ? S ? Crea 0.90 0.66-1.25 Final [place] mg/dL mg/dL [facility] ([facility]) : [address] t ? ? S Low Ca 7.9 mg/dL 8.4-10.2 Final [place] mg/dL [facility] ([facility]) : [address] t ? ? S ? Na 143 137-145 Final [facility] mmol/L mmol/L [facility] ([facility]) : [address] t ? ? S ? K 4.1 3.5-5.1 Final [facility] mmol/L mmol/L [facility] ([facility]) : [address] t ? ? S High Cl 108 98-107 Final [place] mmol/L mmol/L [facility] ([facility]) : [address] t ? ? S ? Tco2 28.0 22.0-30.0 Final [facility] mmol/L mmol/L [facility] ([facility] : [address] 08/28/2019 Magnesium, S ? mg 2.1 mg/dL 1.6-2.3 Final [facility] QN, Serum mg/dL [facility] Lab (Internal) : [address] 08/28/2019 Phosphorus, S ? Phos 2.6 mg/dL 2.5-4.5 Janeen l [place] Serum or mg/dL [facility] Plasma Hospital L ab (Internal) : [address] 08/28/2019 Hepatic S ? Tbil 1.1 mg/dL 0.2-1.3 Final N orth Function mg/dL [facility] Panel, Hospital L ab Serum (Internal) : [address] t ? ? S ? Dbil 0.3 mg/dL 0.0-0.3 Final [place] mg/dL [facility] L ab (Internal) : [address] t ? ? S ? Alp 72 U/L 38-126 Final [place] U/L [facility] L ab (Internal) : [address] t ? ? S ? Alt 30 U/L 21-72 U/L Final [place] (Sgpt) [facility] L ab (Internal) : [address] t ? ? S ? Ast 52 U/L 17-59 U/L Final [place] (Sgot) [facility] L ab (Internal) : [address] t ? ? S ? Ggt 40 U/L 15-73 U/L Final [facility] L ab (Internal) : [address] t ? ? S Low Tp 5.7 g/dL 6.3-8.2 Final [place] g/dL [facility] L ab (Internal) : [address] t ? ? S Low Alb 3.0 g/dL 3.5-5.0 Final [place] g/dL [facility] L ab (Internal) : [address] 08/28/2019 H Pylori MISC ? H. negative negative Final [place] Urea Breath Pylori C Cou ntry Test, Co2 Urea Hospita l Lab Infrared Breath (Interna l): Test [address] 08/28/2019 Pathology TISS ? Report (see ? Final No rth Study below) [facility] L ab (Internal) : [address] 08/27/2019 Cbc BLD ? Wbc 7.4 5.0-10.0 Final Nort h 10*3/uL 10*3/uL [facility] L ab (Internal) : [address], [place] ? ? BLD Low Rbc 4.45 4.60-6.00 Final [place] 10*6/uL 10*6/uL [facility] ([facility]) : [address] t ? ? BLD Low Hgb 13.6 g/dL 14.0-18.0 Final Nort h g/dL [facility] L ab (Internal) : [address] ? ? BLD ? Hct 42.5 % 41.0-51.0 Final [place] % [facility] Hospital L ab (Internal) : [address] ? ? BLD ? Mcv 95.5 fL 80.0-96.[address] [place] [address] [facility] L ab (Internal) : [address] ? ? BLD ? Mch 30.6 pg 26.0-32.[address] [place] pg [facility] L ab (Internal) : [address] ? ? BLD ? Mchc 32.0 g/dL 31.0-35.0 Final Nort h g/dL [facility] L ab (Internal) : [address] ? ? BLD ? Rdw 12.8 % 11.5-14.5 Final [facility] Hospital L ab (Internal) : [address] ? ? BLD ? Plt 264 130-450 Final [place] 10*3/uL 10*3/uL [facility] L ab (Internal) : [address] ? ? BLD ? Anc 4.95 ? Final [place] 10*3/uL [facility] L ab (Internal) : [address] 08/27/2019 BMP, Serum S High g/r 113 mg/dL 74-106 Final [facility] or Plasma mg/dL [facility] ([facility]) : [address] ? ? S High Bun 26 mg/dL 9-20 Final North mg/dL [facility] L ab (Internal) : [address] ? ? S ? Crea 1.00 0.66-1.25 Final [facility] mg/dL mg/dL [facility] ([facility]) : [address] ? ? S Low Ca 8.3 mg/dL 8.4-10.2 Final [facility] mg/dL [facility] ([facility]) : [address] t ? ? S High Na 149 137-145 Final [place] mmol/L mmol/L [facility] L ab (Internal) : [address] t ? ? S ? K 3.7 3.5-5.1 Final [place] mmol/L mmol/L [facility] L ab (Internal) : [address] t ? ? S High Cl 109 98-107 Final [place] mmol/L mmol/L [facility] L ab (Internal) : [address] t ? ? S High Tco2 31.0 22.0-30.0 Final [place] mmol/L mmol/L [facility] L ab (Internal) : [address] t 08/05/2019 CBC W/ Auto BLD ? Wbc 6.9 5.0-10.0 Final [place] Diff 10*3/uL 10*3/uL [facility] ([facility]) : [address] t ? ? BLD ? Rbc 4.79 4.60-6.00 Final [place] 10*6/uL 10*6/uL [facility] L ab (Internal) : [address] t ? ? BLD ? Hgb 14.9 g/dL 14.0-18.0 Final Nort h g/dL [facility] L ab (Internal) : [address] t ? ? BLD ? Hct 44.6 % 41.0-51.0 Final [facility] L ab (Internal) : [address] ? ? BLD ? Mcv 93.1 fL 80.0-96.[address] [facility] Hospital L ab (Internal) : [address] t ? ? BLD ? Mch 31.1 pg 26.0-32.[address] [place] pg [facility] L ab (Internal) : [address] t ? ? BLD ? Mchc 33.4 g/dL 31.0-35.0 Final Nort h g/dL [facility] L ab (Internal) : [address] ? ? BLD ? Rdw 12.8 % 11.5-14.5 Final [facility] Hospital L ab (Internal) : [address] t ? ? BLD ? Plt 191 130-450 Final [facility] 10*3/uL 10*3/uL [facility] ([facility] : [address] t ? ? BLD ? Anc 4.92 ? Final [facility] 10*3/uL [facility] L ab (Internal) : [address] t ? ? BLD ? Neutro 71.8 % 40.0-75.0 Final [facility] Hospital L ab (Internal) : [address] t ? ? BLD Low Lymph 14.5 % 20.0-50.0 Final [facility] Hospital L ab (Internal) : [address] t ? ? BLD High Gallia 10.9 % 2.0-10.0 Final [facility] Hospital L ab (Internal) : [address] t ? ? BLD ? Eos 1.9 % 1.0-6.0 % Final [facility] Hospital L ab (Internal) : [address] t ? ? BLD ? Baso 0.6 % 0.0-1.0 % Final [facility] Hospital L ab (Internal) : [address] t ? ? BLD ? Ig 0.3 % 0.0-0.9 % Final [facility] Hospital L ab (Internal) : [address] t 08/05/2019 BMP, Serum S High g/r 177 mg/dL 74-106 Final [facility] or Plasma mg/dL [facility] ([facility]) : [address] ? ? S High Bun 22 mg/dL 9-20 Final North mg/dL [facility] L ab (Internal) : [address] t ? ? S ? Crea 1.10 0.66-1.25 Final [facility] mg/dL mg/dL [facility] ([facility]) : [address] t ? ? S ? Ca 9.2 mg/dL 8.4-10.2 Final North mg/dL [facility] L ab (Internal) : [address] t ? ? S ? Na 138 137-145 Final [place] mmol/L mmol/L [facility] L ab (Internal) : [address] t ? ? S ? K 4.5 3.5-5.1 Final [place] mmol/L mmol/L [facility] (Internal) : [address] t ? ? S ? Cl 103 98-107 Final [facility] mmol/L mmol/L [facility] (Internal) : [address] t ? ? S Low Tco2 21.0 22.0-30.0 Final [facility] mmol/L mmol/L [facility] (Internal) : [address] 07/25/2019 Lipid S High Chol 210 mg/dL 50-200 Final Nor th Panel, mg/dL [facility] (Internal) : [address] t ? ? S High Trig 280 mg/dL 10-150 Final [facility] mg/dL [facility] ([facility]) : [address] t ? ? S Low Hdl 37 mg/dL 40-60 Final [facility] mg/dL [facility] (Internal) : [address] t ? ? S ? Ldl 117 mg/dL 0-130 Final [facility] mg/dL [facility] (Internal) : [address] 07/25/2019 BMP, Serum S High g/r 113 mg/dL 74-106 Final [facility] or Plasma mg/dL [facility] (Internal) : [address] t ? ? S ? Bun 20 mg/dL 9-20 Final [facility] mg/dL [facility] (Internal) : [address] t ? ? S ? Crea 1.00 0.66-1.25 Final [facility] mg/dL mg/dL [facility] (Internal) : [address] t ? ? S ? Ca 9.7 mg/dL 8.4-10.2 Final [facility] mg/dL [facility] (Internal) : [address] t ? ? S ? Na 141 137-145 Final [facility] mmol/L mmol/L [facility] (Internal) : [address] t ? ? S ? K 4.7 3.5-5.1 Final [facility] mmol/L mmol/L [facility] (Internal) : [address] t ? ? S ? Cl 102 98-107 Final [place] mmol/L mmol/L [facility] (Internal) : [address] [place] ? ? S ? Tco2 29.0 22.0-30.0 Final [place] mmol/L mmol/L [facility] L ab (Internal) : [address] 07/25/2019 PSA, Serum S ? PSA 3.4 NG/mL 0.0-4.0 Final [place] or Plasma Scrn NG/mL [facility] (Internal) : [address] 12/02/2018 Pathology TISS - Report results ? Final N orth Study below [facility] L ab (Internal) : [address] t 09/02/2018 CBC W/ Auto BLD - Wbc 7.1 5.0-10.0 Final [place] Diff 10*3/uL 10*3/uL [facility] L ab (Internal) : [address] [place] ? ? BLD - Rbc 5.15 4.60-6.00 Final [place] 10*6/uL 10*6/uL [facility] Hospital L ab (Internal) : [address] ? ? BLD - Hgb 16.0 g/dL 14.0-18.0 Final Nort h g/dL [facility] L ab (Internal) : [address] ? ? BLD - Hct 48.1 % 41.0-51.0 Final [facility] L ab (Internal) : [address] [place] ? ? BLD - Mcv 93.4 fL 80.0-96.[address] [place] [address] [facility] L ab (Internal) : [address] ? ? BLD - Mch 31.1 pg 26.0-32.[address] [place] [address] [facility] L ab (Internal) : [address] [place] ? ? BLD - Mchc 33.3 g/dL 31.0-35.0 Final Nort h g/dL [facility] L ab (Internal) : [address] ? ? BLD - Rdw 12.7 % 11.5-14.5 Final [place] % [facility] L ab (Internal) : [address] ? ? BLD - Plt 175 130-450 Final [facility] 10*3/uL 10*3/uL [facility] Hospital L ab (Internal) : [address] 09/02/2018 CMP, Serum S High g/r 148 mg/dL 74-106 Final [facility] or Plasma mg/dL [facility] (Internal) : [address] t ? ? S High Bun 21 mg/dL 9-20 Final [facility] mg/dL [facility] (Internal) : [address] t ? ? S - Crea 0.80 0.66-1.25 Final [place] mg/dL mg/dL [facility] (Internal) : [address] t ? ? S - Ca 9.7 mg/dL 8.4-10.2 Final [facility] mg/dL [facility] (Internal) : [address] t ? ? S - Na 138 137-145 Final [place] mmol/L mmol/L [facility] (Internal) : [address] t ? ? S - K 4.4 3.5-5.1 Final [place] mmol/L mmol/L [facility] (Internal) : [address] t ? ? S - Cl 102 98-107 Final [place] mmol/L mmol/L [facility] (Internal) : [address] t ? ? S - Tco2 29.0 22.0-30.0 Final [facility] mmol/L mmol/L [facility] (Internal) : [address] t ? ? S High Tp 8.4 g/dL 6.3-8.2 Final [facility] g/dL [facility] (Internal) : [address] t ? ? S - Alb 4.5 g/dL 3.5-5.0 Final [facility] g/dL [facility] (Internal) : [address] t ? ? S High Tbil 1.4 mg/dL 0.2-1.3 Final [facility] mg/dL [facility] (Internal) : [address] t ? ? S - Alp 110 U/L 38-126 Final [facility] U/L [facility] ([facility]) : [address] t ? ? S Low Alt 20 U/L 21-72 U/L Final [facility] (Sgpt) [facility] (Internal) : [address] t ? ? S - Ast 41 U/L 17-59 U/L Final [place] (Sgot) [facility] Hospital L ab (Internal) : [address] t 09/02/2018 Differentia BLD High Polys 88 % 40-75 % Final [facility], Manual, Countr y Blood Hospital L ab (Internal) : [address] t ? ? BLD - Bands 1 % 0-5 % Final [facility] Hospital L ab (Internal) : [address] t ? ? BLD Low Lymphs 5 % 20-50 % Final [facility] L ab (Internal) : [address] t ? ? BLD - Gallia 3 % 2-10 % Final [facility] ab (Internal) : [address] t ? ? BLD - Eos 3 % 0-6 % Final [facility] L ab (Internal) : [address] t ? ? BLD - Baso 0 % 0-1 % Final [facility] ab (Internal) : [address] t ? ? BLD - Atyp 0 % ? Final [facility] ab (Internal) : [address] t ? ? BLD - Plts, adequate adequate Final [facility] L ab (Internal) : [address] t ? ? BLD - RBC normal normal Final [facility] Hospital L ab (Internal) : [address] t 09/02/2018 Neutrophil BLD - Anc-man 6.33 ? Final [place] Count, ual 10*3/uL [facility] Hospital Lab (Anc), (Internal) : Blood [address] t 07/22/2018 Cbc BLD - Wbc 8.0 5.0-10.0 Final Nort h 10*3/uL 10*3/uL [facility] Hospital L ab (Internal) : [address] t ? ? BLD Low Rbc 4.54 4.60-6.00 Final [place] 10*6/uL 10*6/uL [facility] Hospital L ab (Internal) : [address] t ? ? BLD Low Hgb 13.9 g/dL 14.0-18.0 Final [facility] g/dL [facility] (Internal) : [address] ? ? BLD - Hct 42.6 % 41.0-51.0 Final North % [facility] Hospital L ab (Internal) : [address] ? ? BLD - Mcv 93.8 fL 80.0-96.[address] [place] [address] [facility] L ab (Internal) : [address] ? ? BLD - Mch 30.6 pg 26.0-32.[address] [place] [address] [facility] L ab (Internal) : [address] ? ? BLD - Mchc 32.6 g/dL 31.0-35.0 Final [facility] g/dL [facility] (Internal) : [address] ? ? BLD - Rdw 12.4 % 11.5-14.5 Final [facility] Hospital L ab (Internal) : [address] ? ? BLD - Plt 196 130-450 Final [place] 10*3/uL 10*3/uL [facility] (Internal) : [address] ? ? BLD - Anc 5.04 ? Final [place] 10*3/uL [facility] (Internal) : [address] 07/22/2018 BMP, Serum S High g/r 124 mg/dL 74-106 Final [facility] or Plasma mg/dL [facility] (Internal) : [address] ? ? S - Bun 14 mg/dL 9-20 Final North mg/dL [facility] L ab (Internal) : [address] ? ? S - Crea 0.70 0.66-1.25 Final [place] mg/dL mg/dL [facility] (Internal) : [address] ? ? S - Ca 9.2 mg/dL 8.4-10.2 Final North mg/dL [facility] L ab (Internal) : [address] ? ? S - Na 138 137-145 Final [place] mmol/L mmol/L [facility] Hospital L ab (Internal) : [address] ? ? S - K 4.2 3.5-5.1 Final [place] mmol/L mmol/L [facility] (Internal) : [address] ? ? S - Cl 101 98-107 Final [place] mmol/L mmol/L [facility] (Internal) : [address] ? ? S - Tco2 30.0 22.0-30.0 Final [place] mmol/L mmol/L [facility] (Internal) : [address] 03/25/2018 Urease, TISS - Final microbiol ? Final No rth Qualitative ogy Count ry , Tissue results Hospita l Lab (Internal) : [address] 03/25/2018 Pathology TISS - Report results ? Final N orth Study below [facility] (Internal[facility] : [address] 10/09/2017 Venipunctur BLD ? Venpn* ? ? Final [facility] e [facility] (Internal) : [address] 10/09/2017 BMP, Serum PLASMA High g/r 173 mg/dL 74-106 Final [facility] or Plasma mg/dL [facility] (Internal) : [address] ? ? PLASMA Low Bun 6 mg/dL 9-20 Final [facility] mg/dL [facility] (Internal) : [address] ? ? PLASMA ? Crea 0.70 0.66-1.25 Final [place] mg/dL mg/dL [facility] (Internal) : [address] ? ? PLASMA ? Ca 8.7 mg/dL 8.4-10.2 Final [facility] mg/dL [facility] (Internal) : [address] ? ? PLASMA Low Na 134 137-145 Final [facility] mmol/L mmol/L [facility] (Internal) : [address] ? ? PLASMA ? K 4.1 3.5-5.1 Final [facility] mmol/L mmol/L [facility] (Internal) : [address] ? ? PLASMA ? Cl 99 mmol/L 98-107 Final [facility] mmol/L [facility] (Internal) : [address] ? ? PLASMA ? Tco2 30.0 22.0-30.0 Final [place] mmol/L mmol/L [facility] Hospital L ab (Internal) : [address] t 10/09/2017 CBC W/ Auto BLD ? Wbc 8.5 5.0-10.0 Final [place] Diff 10*3/uL 10*3/uL [facility] Hospital L ab (Internal) : [address] t ? ? BLD Low Rbc 3.29 4.60-6.00 Final [place] 10*6/uL 10*6/uL [facility] Hospital L ab (Internal) : [address] t ? ? BLD Low Hgb 10.1 g/dL 14.0-18.0 Final Nort h g/dL [facility] Hospital L ab (Internal) : [address] t ? ? BLD Low Hct 30.5 % 41.0-51.0 Final [facility] L ab (Internal) : [address] t ? ? BLD ? Mcv 92.7 fL 80.0-96.[address] [facility] Hospital L ab (Internal) : [address] t ? ? BLD ? Mch 30.7 pg 26.0-32.0 Final [facility] L ab (Internal) : [address] t ? ? BLD ? Mchc 33.1 g/dL 31.0-35.0 Final Nort h g/dL [facility] Hospital L ab (Internal) : [address] t ? ? BLD ? Rdw 12.4 % 11.5-14.5 Final [facility] L ab (Internal) : [address] t ? ? BLD ? Plt 157 130-450 Final [place] 10*3/uL 10*3/uL [facility] Hospital L ab (Internal) : [address] t ? ? BLD ? Anc 6.37 ? Final [place] 10*3/uL [facility] L ab (Internal) : [address] t ? ? BLD ? Neutro 74.6 % 40.0-75.0 Final [facility] L ab (Internal) : [address] t ? ? BLD Low Lymph 14.0 % 20.0-50.0 Final [facility] L ab (Internal) : [address], [place] ? ? BLD ? Gallia 9.0 % 2.0-10.0 Final [place] % [facility] L ab (Internal) : [address] t ? ? BLD ? Eos 1.5 % 1.0-6.0 % Final [facility] Hospital L ab (Internal) : [address] t ? ? BLD ? Baso 0.4 % 0.0-1.0 % Final [facility] Hospital L ab (Internal) : [address] t ? ? BLD ? Ig 0.5 % 0.0-0.9 % Final [facility] Hospital L ab (Internal) : [address] 10/09/2017 Lipase, PLASMA ? Lip 54 U/L 23-300 Final [place] Serum or U/L [facility] Plasma Hospital L ab (Internal) : [address] 10/07/2017 Venipunctur BLD ? Venpn* ? ? Final [place] e [facility] L ab (Internal) : [address] 10/07/2017 BMP, Serum S High g/r 160 mg/dL 74-106 Final [place] or Plasma mg/dL [facility] (Internal) : [address] t ? ? S ? Bun 16 mg/dL 9-20 Final North mg/dL [facility] Hospital L ab (Internal) : [address] t ? ? S ? Crea 0.90 0.66-1.25 Final [place] mg/dL mg/dL [facility] L ab (Internal) : [address] t ? ? S ? Ca 8.4 mg/dL 8.4-10.2 Final North mg/dL [facility] L ab (Internal) : [address] t ? ? S Low Na 136 137-145 Final [place] mmol/L mmol/L [facility] L ab (Internal) : [address] t ? ? S ? K 4.5 3.5-5.1 Final [place] mmol/L mmol/L [facility] Hospital L ab (Internal) : [address] t ? ? S ? Cl 103 98-107 Final [place] mmol/L mmol/L [facility] L ab (Internal) : [address], [place] ? ? S ? Tco2 27.0 22.0-30.0 Final [place] mmol/L mmol/L [facility] L ab (Internal) : [address] t 10/07/2017 CBC W/ Auto BLD ? Wbc 9.2 5.0-10.0 Final [place] Diff 10*3/uL 10*3/uL [facility] (Internal) : [address] t ? ? BLD Low Rbc 4.15 4.60-6.00 Final [place] 10*6/uL 10*6/uL [facility] (Internal) : [address] t ? ? BLD Low Hgb 12.5 g/dL 14.0-18.0 Final Nort h g/dL [facility] L ab (Internal) : [address] t ? ? BLD Low Hct 38.2 % 41.0-51.0 Final [facility] Hospital L ab (Internal) : [address] t ? ? BLD ? Mcv 92.0 fL 80.0-96.[address] [facility] Hospital L ab (Internal) : [address] t ? ? BLD ? Mch 30.1 pg 26.0-32.[address] [place] pg [facility] L ab (Internal) : [address] t ? ? BLD ? Mchc 32.7 g/dL 31.0-35.0 Final Nort h g/dL [facility] L ab (Internal) : [address] t ? ? BLD ? Rdw 12.8 % 11.5-14.5 Final [facility] Hospital L ab (Internal) : [address] t ? ? BLD ? Plt 194 130-450 Final [place] 10*3/uL 10*3/uL [facility] L ab (Internal) : [address] t ? ? BLD ? Anc 6.82 ? Final [place] 10*3/uL [facility] L ab (Internal) : [address] t ? ? BLD ? Neutro 74.5 % 40.0-75.0 Final [facility] Hospital L ab (Internal) : [address] t ? ? BLD Low Lymph 15.5 % 20.0-50.0 Final [facility] L ab (Internal) : [address] t ? ? BLD ? Gallia 9.4 % 2.0-10.0 Final [facility] L ab (Internal) : [address] ? ? BLD Low Eos 0.1 % 1.0-6.0 % Final [facility] L ab (Internal) : [address] t ? ? BLD ? Baso 0.3 % 0.0-1.0 % Final [facility] L ab (Internal) : [address] t ? ? BLD ? Ig 0.2 % 0.0-0.9 % Final [facility] L ab (Internal) : [address] 10/06/2017 Venipunctur BLD ? Venpn* ? ? Final [facility] L ab (Internal) : [address] 10/06/2017 CBC W/ Auto BLD High Wbc 10.3 5.0-10.0 Final [place] Diff 10*3/uL 10*3/uL [facility] L ab (Internal) : [address] t ? ? BLD Low Rbc 4.55 4.60-6.00 Final [place] 10*6/uL 10*6/uL [facility] L ab (Internal) : [address] t ? ? BLD Low Hgb 13.9 g/dL 14.0-18.0 Final Nort h g/dL [facility] L ab (Internal) : [address] t ? ? BLD ? Hct 42.2 % 41.0-51.0 Final [facility] L ab (Internal) : [address] t ? ? BLD ? Mcv 92.7 fL 80.0-96.0 Final [facility] L ab (Internal) : [address] ? ? BLD ? Mch 30.5 pg 26.0-32.0 Final [facility] L ab (Internal) : [address] t ? ? BLD ? Mchc 32.9 g/dL 31.0-35.0 Final Nort h g/dL [facility] L ab (Internal) : [address] t ? ? BLD ? Rdw 12.5 % 11.5-14.5 Final [facility] Hospital L ab (Internal) : [address] t ? ? BLD ? Plt 202 130-450 Final [facility] 10*3/uL 10*3/uL [facility] L ab (Internal) : [address] t ? ? BLD ? Anc 7.98 ? Final [facility] 10*3/uL [facility] L ab (Internal) : [address] t ? ? BLD High Neutro 77.8 % 40.0-75.0 Final [place] % [facility] L ab (Internal) : [address] t ? ? BLD Low Lymph 11.7 % 20.0-50.0 Final [place] % [facility] L ab (Internal) : [address] t ? ? BLD ? Gallia 9.8 % 2.0-10.0 Final [facility] Hospital L ab (Internal) : [address] ? ? BLD Low Eos 0.1 % 1.0-6.0 % Final [facility] Hospital L ab (Internal) : [address] ? ? BLD ? Baso 0.4 % 0.0-1.0 % Final [facility] Hospital L ab (Internal) : [address] t ? ? BLD ? Ig 0.2 % 0.0-0.9 % Final [facility] Hospital L ab (Internal) : [address] 10/06/2017 BMP, Serum PLASMA High g/r 185 mg/dL 74-106 Final [place] or Plasma mg/dL [facility] Hospital L ab (Internal) : [address] t ? ? PLASMA ? Bun 17 mg/dL 9-20 Final North mg/dL [facility] L ab (Internal) : [address] t ? ? PLASMA ? Crea 1.10 0.66-1.25 Final [facility] mg/dL mg/dL [facility] Hospital L ab (Internal) : [address] t ? ? PLASMA ? Ca 8.8 mg/dL 8.4-10.2 Final North mg/dL [facility] Hospital L ab (Internal) : [address] t ? ? PLASMA ? Na 137 137-145 Final [place] mmol/L mmol/L [facility] L ab (Internal) : [address] ? ? PLASMA ? K 4.0 3.5-5.1 Final [place] mmol/L mmol/L [facility] L ab (Internal) : [address] ? ? PLASMA ? Cl 103 98-107 Final [place] mmol/L mmol/L [facility] (Internal) : [address] ? ? PLASMA ? Tco2 23.0 22.0-30.0 Final [place] mmol/L mmol/L [facility] (Internal) : [address] 10/01/2017 Venipunctur BLD ? Venpn* ? ? Final [facility] (Internal) : [address] 10/01/2017 Type + BLD ? Abo Ab ? Final [facility] (Internal) : [address] ? ? BLD ? Rh positive ? Final [facility] (Internal) : [address] ? ? BLD ? Ab Scrn negative negative Final [facility] (Internal) : [address] 09/14/2017 Venipunctur BLD ? Venpn* ? ? Final [facility] (Internal) : [address] 09/14/2017 Carcinoembr S ? Carcino 1.7 NG/mL ? Fin al [place] yonic Ag, embryoni Count ry Quant, Hospital [facility] Serum or Antigen ([employer] Technician al): Plasma [address] 09/14/2017 CBC W/ Auto BLD ? Wbc 6.4 5.0-10.0 Final [place] Diff 10*3/uL 10*3/uL [facility] (Internal) : [address] ? ? BLD ? Rbc 4.71 4.60-6.00 Final [place] 10*6/uL 10*6/uL [facility] (Internal) : [address] ? ? BLD ? Hgb 14.2 g/dL 14.0-18.0 Final [place] g/dL [facility] (Internal) : [address] ? ? BLD ? Hct 43.7 % 41.0-51.0 Final [facility] (Internal) : [address] ? ? BLD ? Mcv 92.8 fL 80.0-96.[address] [facility] (Internal) : [address] ? ? BLD ? Mch 30.1 pg 26.0-32.0 Final [facility] (Internal) : [address] ? ? BLD ? Mchc 32.5 g/dL 31.0-35.0 Final Nort h g/dL [facility] (Internal) : [address] ? ? BLD ? Rdw 12.5 % 11.5-14.5 Final [facility] (Internal) : [address] ? ? BLD ? Plt 242 130-450 Final [place] 10*3/uL 10*3/uL [facility] (Internal) : [address] ? ? BLD ? Anc 3.68 ? Final [place] 10*3/uL [facility] (Internal) : [address] ? ? BLD ? Neutro 57.6 % 40.0-75.0 Final [facility] (Internal) : [address] t ? ? BLD ? Lymph 26.8 % 20.0-50.0 Final [facility] (Internal) : [address] t ? ? BLD High Gallia 10.7 % 2.0-10.0 Final [facility] (Internal) : [address] ? ? BLD ? Eos 3.9 % 1.0-6.0 % Final [facility] (Internal) : [address] t ? ? BLD ? Baso 0.8 % 0.0-1.0 % Final [facility] (Internal) : [address] ? ? BLD ? Ig 0.2 % 0.0-0.9 % Final [facility] (Internal) : [address] , [place] 09/14/2017 CMP, Serum S High g/r 132 mg/dL 74-106 Final [place] or Plasma mg/dL [facility] : [address] t ? ? S ? Bun 17 mg/dL 9-20 Final [place] mg/dL [facility] ([facility]) : [address] t ? ? S ? Crea 0.90 0.66-1.25 Final [place] mg/dL mg/dL [facility] ([facility]) : [address] t ? ? S ? Ca 9.5 mg/dL 8.4-10.2 Final [place] mg/dL [facility] ([facility]) : [address] t ? ? S ? Na 141 137-145 Final [place] mmol/L mmol/L [facility] ([facility]) : [address] t ? ? S ? K 4.2 3.5-5.1 Final [place] mmol/L mmol/L [facility] ([facility]) : [address] t ? ? S ? Cl 102 98-107 Final [place] mmol/L mmol/L [facility] ([facility]) : [address] t ? ? S ? Tco2 29.0 22.0-30.0 Final [place] mmol/L mmol/L [facility] ([facility]) : [address] t ? ? S ? Tp 7.6 g/dL 6.3-8.2 Final [place] g/dL [facility] ([facility]) : [address] t ? ? S ? Alb 4.3 g/dL 3.5-5.0 Final [place] g/dL [facility] ([facility]) : [address] t ? ? S ? Tbil 0.6 mg/dL 0.2-1.3 Final [place] mg/dL [facility] ([facility] : [address] t ? ? S ? Alp 71 U/L 38-126 Final [place] U/L [facility] ([facility]) : [address] t ? ? S ? Alt 23 U/L 21-72 U/L Final [facility] (Sgpt) [facility] : [address] t ? ? S ? Ast 25 U/L 17-59 U/L Final [facility] (Sgot) [facility] ([facility]) : [address] 09/08/2017 Venipunctur BLD ? Venpn* ? ? Final [facility] e [facility] : [address] 09/08/2017 Creatinine, S ? Crea 0.80 0.66-1.25 Final [place] Serum or mg/dL mg/dL [facility] ([facility] : [address] 09/06/2017 Pathology TISS ? Report results ? Final N orth Study below [facility] ([facility] : [address] 01/28/2017 Venipunctur BLD ? Venpn* ? ? Final [facility]) : [address] 01/28/2017 BMP, Serum S ? g/r 105 mg/dL 74-106 Final [place] or Plasma mg/dL [facility] ([facility]) : [address] t ? ? S High Bun 21 mg/dL 9-20 Final [place] mg/dL [facility] ([facility]) : [address] t ? ? S ? Crea 0.80 0.66-1.25 Final [place] mg/dL mg/dL [facility] ([facility]) : [address] t ? ? S ? Ca 9.5 mg/dL 8.4-10.2 Final [place] mg/dL [facility] ([facility]) : [address] t ? ? S ? Na 139 137-145 Final [place] mmol/L mmol/L [facility] ([facility]) : [address] t ? ? S ? K 4.1 3.5-5.1 Final [place] mmol/L mmol/L [facility] ([facility]) : [address] t ? ? S ? Cl 105 98-107 Final [place] mmol/L mmol/L [facility] ([facility]) : [address] t ? ? S ? Tco2 24.0 22.0-30.0 Final [place] mmol/L mmol/L [facility] ([facility]) : [address] 08/21/2016 Venipunctur BLD ? Venpn* ? ? Final North e [facility] L ab (Internal) : [address] 08/21/2016 TSH, Serum S ? Tsh 2.45 0.47-4.68 Final [place] or Plasma u[IU]/mL u[IU]/mL [facility] L [facility] (Internal) : [address] 08/21/2016 T4, Free, S ? Ft4 0.83 0.78-2.19 Final [place] Serum NG/dL NG/dL [facility] L ab (Internal) : [address] Past Encounters 03/04/2020 Adenocarcinoma of Stomach; Atrial Fibril lation; Hypertensive Disorder; Administration of Influenza Vaccine Eris Saldivar, DO: [address] [place] [id number], Ph. 12/01/2019 Adenocarcinoma of Stomach; Atrial Fibril lation; Benign Essential Hypertension Eris Saldivar, DO: [address] [place] [address], Ph. 11/01/2019 Adenocarcinoma of Stomach Nini Gill MD: [address] [place] [address], Ph. 10/06/2019 Eris Saldivar DO: [address] [place] [address], Ph. 10/02/2019 Atrial Fibrillation; Adenocarcinoma of S tomach Eris Saldivar, DO: [address] [place] [address], Ph. 09/13/2019 Adenocarcinoma of Stomach Nini Gill MD: [address] [place] [address], Ph. 09/11/2019 Atrial Fibrillation; Benign Essential Hy pertension; Adenocarcinoma of Stomach Eris Saldivar, DO: [address] [place] [address], Ph. 07/25/2019 Adult Health Examination; Benign Essenti al Hypertension; Screening for Malignant Neoplasm of Prostate; Actinic Keratosis Eris Saldivar, DO: [address] [place] [address], Ph. 05/26/2019 Essential Tremor; Cubital Tunnel Syndrom e; Carpal Tunnel Syndrome Bonifacio Sharma MD: [address], [place] [address], Ph. 01/27/2019 Essential Tremor; Cubital Tunnel Syndrom e; Carpal Tunnel Syndrome Bonifacio Sharma MD: [address], [place] [address], Ph. 01/23/2019 Benign Essential Hypertension; Hyperlipi demia Screening; Atrial Fibrillation Eris Saldivar, DO: [address] [place] [address], Ph. Social History Tobacco Smoking Status Former Smoker Notes: Smoked socially while in service 60 year ago Vaccine List Notes: patient does not get vacc ruth ann 10/13/2018 Plan of Care Reminders Provider Appointments None ? ? recorded. Lab None ? ? recorded. Referral None ? ? recorded. Procedures None ? ? recorded. Surgeries None ? ? recorded. Imaging None ? ? recorded. Vitals 03/04/2020 08:40AM Follow Up 20 Height Weight BMI Blood Pressure 172.72 cm 68.69 kg 23 kg/m2 130/78 mm[Hg] 12/01/2019 10:20AM Follow Up 20 Height Weight BMI Blood Pressure 172.72 cm 70.31 kg 23.6 kg/m2 110/60 mm[Hg] 10/06/2019 10:00AM Nurse 20 Height Weight BMI Blood Pressure 172.72 cm 78.47 kg 26.3 kg/m2 106/72 mm[Hg] 10/02/2019 02:20PM Any 20 Height Weight BMI Blood Pressure 172.72 cm 78.56 kg 26.3 kg/m2 120/70 mm[Hg] 09/13/2019 11:45AM Office 15 Height Blood Pressure 172.72 cm 140/80 mm[Hg] 07/25/2019 01:20PM AWV 40 Height Weight BMI Blood Pressure 172.72 cm 91.99 kg 30.8 kg/m2 146/86 mm[Hg] 05/26/2019 08:20AM Follow Up 20 Height Weight BMI Blood Pressure 172.72 cm 90.17 kg 30.2 kg/m2 130/70 mm[Hg] 01/27/2019 08:20AM Follow Up 20 Height Weight BMI Blood Pressure 172.72 cm 88 kg 29.5 kg/m2 150/90 mm[Hg] 01/23/2019 01:00PM Follow Up 20 Height Blood Pressure 172.72 cm 150/80 mm[Hg] 10/13/2018 04:00PM Any 20 Height Weight BMI Blood Pressure 172.72 cm 89.39 kg 30 kg/m2 144/84 mm[Hg] 09/30/2018 08:20AM Follow Up 20 Height Weight BMI Blood Pressure 172.72 cm 90.54 kg 30.3 kg/m2 140/80 mm[Hg] 07/22/2018 01:40PM AWV 40 Height Weight BMI Blood Pressure 172.72 cm 90.72 kg 30.4 kg/m2 150/70 mm[Hg] 05/13/2018 08:20AM Follow Up 20 Height Weight BMI Blood Pressure 173.99 cm 76.57 kg 25.3 kg/m2 150/70 mm[Hg] 01/10/2018 03:40PM Follow Up 20 Height Weight BMI Blood Pressure 172.72 cm 86.14 kg 28.9 kg/m2 157/71 mm[Hg] 12/31/2017 08:20AM Follow Up 20 Height Weight BMI 172.72 cm 84.73 kg 28.4 kg/m2 11/02/2017 10:30AM Office 15 Height 173.99 cm 08/27/2017 Height Weight Blood Pressure 173.99 cm 88.45 kg 160/80 mm[Hg] 07/13/2017 Weight Blood Pressure 88.9 kg 140/72 mm[Hg] 04/09/2017 Height Weight Blood Pressure 173.99 cm 89.45 kg 150/70 mm[Hg] 01/28/2017 Height Weight Blood Pressure 172.72 cm 90.99 kg 164/80 mm[Hg] 12/11/2016 Height Weight Blood Pressure 172.72 cm 89.81 kg 150/80 mm[Hg] 11/06/2016 Height Weight Blood Pressure 172.72 cm 91.49 kg 150/80 mm[Hg] 08/21/2016 Height Weight Blood Pressure 172.72 cm 90.26 kg 142/78 mm[Hg] 07/24/2016 Height Weight Blood Pressure 173.99 cm 89.45 kg 144/72 mm[Hg] 07/15/2016 Height Weight Blood Pressure 173.99 cm 89.18 kg 142/82 mm[Hg] 03/06/2016 Weight Blood Pressure 92.03 kg 144/70 mm[Hg] 02/28/2016 Weight Blood Pressure 91.17 kg 132/64 mm[Hg] 08/30/2015 Weight Blood Pressure 91.04 kg 142/78 mm[Hg] 02/28/2015 Height Weight Blood Pressure 173.99 cm 86.59 kg 148/78 mm[Hg] 07/13/2014 Height Weight Blood Pressure 173.99 cm 86.52 kg (1) 138/64 mm[Hg] (2) 152/80 mm[Hg] 04/09/2014 Height Weight Blood Pressure 173.99 cm 88.04 kg (1) 136/66 mm[Hg] (2) 148/76 mm[Hg] 01/04/2014 Height Weight Blood Pressure 173.99 cm 88 kg (1) 150/79 mm[Hg] (2) 142/64 mm[Hg] (3) 144/62 mm[Hg] (4) 160/79 mm[Hg] 08/17/2013 Height Weight Blood Pressure 173.99 cm 86.41 kg (1) 138/70 mm[Hg] (2) 136/60 mm[Hg] 07/18/2013 Height Weight Blood Pressure 173.99 cm 86.41 kg (1) 150/66 mm[Hg] (2) 150/72 mm[Hg] 06/27/2013 Height Weight Blood Pressure 173.99 cm 85.16 kg (1) 176/70 mm[Hg] (2) 172/66 mm[Hg] (3) 158/72 mm[Hg] 04/13/2005 Weight Blood Pressure 88 kg (1) 152/70 mm[Hg] (2) 172/70 mm[Hg] 01/20/2005 Blood Pressure (1) 150/72 mm[Hg] (2) 144/70 mm[Hg] 01/05/2005 Height Weight Blood Pressure 175.26 cm 87.54 kg (1) 162/82 mm[Hg] (2) 158/84 mm[Hg]
[2020-06-14] MEDS: Heparin 500 UNITS/5 ML SYRINGE IVP (09:02)
[2020-06-14] MEDS: Normal Saline Flush 10 ML SYR IVP (09:02)
[2020-06-14 09:11] LABS: Abs Immature Grans 0.04 10^3/uL (0.0-0.06); Absolute Basophil Count 0.06 10^3/uL (0.0-0.2); Absolute Eosinophil Count 0.15 10^3/uL (0.0-0.7); Absolute Lymphocyte Count 1.93 10^3/uL (1.2-3.4); Absolute Monocyte Count 0.87 10^3/uL (0.1-0.8); Absolute Neutrophil Count 4.87 10^3/uL (1.2-6.7); Basophils % 0.8; Eosinophils % 1.9; HCT 34.8 % (40.0-50.0); HGB 11.1 g/dL (13.5-17.5); Immature Grans % 0.5; Lymphocytes % 24.4; MCH 30.9 pg (27.0-33.0); MCHC 31.9 % (32.0-36.0); MCV 96.9 fL (80-95); MPV 9.8 fL (8.0-11.0); Neutrophils % 61.4; Nucleated RBC 0 %; Platelet Count 267 10^3/uL (130-400); RBC 3.59 10^6/uL (4.36-5.78); RDW 14.2 % (11.8-14.1); RDW-SD 50.1 fL; WBC 7.92 10^3/uL (4.4-10.8)
[2020-06-14 09:32] LABS: ALT 24 U/L (16-63); AST 40 U/L (15-37); Albumin 2.3 g/dL (3.4-5.0); Alkaline Phosphatase 226 U/L (46-116); Anion Gap 5.9 mmol/L (3-11); BUN 12 mg/dL (7-18); Bilirubin, Total 0.4 mg/dL (0.2-1.0); CO2 28.1 mmol/L (21.0-32.0); CREATININE 0.85 mg/dL (0.70-1.30); Calcium 8.4 mg/dL (8.5-10.1); Chloride 106 mmol/L (98-107); Glucose 126 mg/dL (74-106); Potassium 4.4 mmol/L (3.5-5.1); Sodium 140 mmol/L (136-145); Total Protein 6.8 g/dL (6.4-8.2)
[2020-06-14 23:14] LABS: CEA 2.9 ng/mL (See Note)
[2020-06-28] MEDS: Heparin 500 UNITS/5 ML SYRINGE IVP (07:52)
[2020-06-28] MEDS: Normal Saline Flush 10 ML SYR IVP (07:52)
[2020-06-28 08:05] LABS: Abs Immature Grans 0.02 10^3/uL (0.0-0.06); Absolute Basophil Count 0.04 10^3/uL (0.0-0.2); Absolute Eosinophil Count 0.13 10^3/uL (0.0-0.7); Absolute Lymphocyte Count 1.72 10^3/uL (1.2-3.4); Absolute Monocyte Count 0.72 10^3/uL (0.1-0.8); Basophils % 0.7; Eosinophils % 2.3; HGB 11.2 g/dL (13.5-17.5); Immature Grans % 0.3; MCH 31.5 pg (27.0-33.0); MCV 98.3 fL (80-95); MPV 9.2 fL (8.0-11.0); Monocytes % 12.6; Neutrophils % 54.1; Nucleated RBC 0 %; Platelet Count 259 10^3/uL (130-400); RBC 3.56 10^6/uL (4.36-5.78); RDW 14.3 % (11.8-14.1); RDW-SD 50.9 fL; WBC 5.73 10^3/uL (4.4-10.8)
[2020-06-28 08:23] LABS: ALT 21 U/L (16-63); AST 33 U/L (15-37); Albumin 2.5 g/dL (3.4-5.0); Alkaline Phosphatase 161 U/L (46-116); Anion Gap 7.9 mmol/L (3-11); BUN 16 mg/dL (7-18); Bilirubin, Total 0.5 mg/dL (0.2-1.0); CO2 26.1 mmol/L (21.0-32.0); CREATININE 0.93 mg/dL (0.70-1.30); Calcium 8.5 mg/dL (8.5-10.1); Chloride 107 mmol/L (98-107); Glucose 164 mg/dL (74-106); Sodium 141 mmol/L (136-145); Total Protein 6.4 g/dL (6.4-8.2)
[2020-06-28 19:15] LABS: CEA 4.4 ng/mL (See Note)
== END 2020-07-07 23:59 | disposition home or self-care (01) ==
LOC: INF 04:27
PROVIDERS: PCP Internal Medicine; Visit Provider Internal Medicine Hematology & Oncology
DX: C16.9 Malignant neoplasm of stomach, unspecified (principal); Z45.2 Encounter for adjustment and management of vascular access device
CPT/HCPCS: 36591; 80053; 82378; 85025

== ENCOUNTER 2020-07-26 01:41 | Outpatient (RCR) | payer MEDICARE, OTHER, SELFPAY ==
[2020-07-12] MEDS: Normal Saline Flush 10 ML SYR IVP (10:03)
[2020-07-12] MEDS: Heparin 500 UNITS/5 ML SYRINGE IV (10:04)
[2020-07-12 10:05] LABS: Abs Immature Grans 0.01 10^3/uL (0.0-0.06); Absolute Basophil Count 0.03 10^3/uL (0.0-0.2); Absolute Eosinophil Count 0.09 10^3/uL (0.0-0.7); Absolute Lymphocyte Count 1.76 10^3/uL (1.2-3.4); Absolute Monocyte Count 0.55 10^3/uL (0.1-0.8); Absolute Neutrophil Count 3.49 10^3/uL (1.2-6.7); Basophils % 0.5; Eosinophils % 1.5; HCT 36.6 % (40.0-50.0); HGB 11.9 g/dL (13.5-17.5); Immature Grans % 0.2; Lymphocytes % 29.7; MCH 31.3 pg (27.0-33.0); MCHC 32.5 % (32.0-36.0); MCV 96.3 fL (80-95); Monocytes % 9.3; Neutrophils % 58.8; Nucleated RBC 0 %; Platelet Count 244 10^3/uL (130-400); RDW 14.1 % (11.8-14.1); RDW-SD 48.4 fL; WBC 5.93 10^3/uL (4.4-10.8)
[2020-07-12 10:20] LABS: ALT 22 U/L (16-63); AST 28 U/L (15-37); Albumin 2.8 g/dL (3.4-5.0); Alkaline Phosphatase 159 U/L (46-116); Anion Gap 7.2 mmol/L (3-11); BUN 16 mg/dL (7-18); Bilirubin, Total 0.7 mg/dL (0.2-1.0); CO2 27.8 mmol/L (21.0-32.0); Chloride 108 mmol/L (98-107); Glucose 141 mg/dL (74-106); Potassium 4.3 mmol/L (3.5-5.1); Sodium 143 mmol/L (136-145); Total Protein 6.8 g/dL (6.4-8.2)
[2020-07-12 18:54] LABS: CEA 5.8 ng/mL (See Note)
== END 2020-08-04 23:59 | disposition home or self-care (01) ==
LOC: INF 01:41
PROVIDERS: PCP Internal Medicine; Visit Provider Internal Medicine Hematology & Oncology
DX: C16.9 Malignant neoplasm of stomach, unspecified (principal); Z45.2 Encounter for adjustment and management of vascular access device
CPT/HCPCS: 36591; 80053; 82378; 85025

== ENCOUNTER 2020-08-16 04:37 | Outpatient (RCR) | payer MEDICARE, OTHER, SELFPAY ==
[2020-08-09] MEDS: Normal Saline Flush 10 ML SYR IVP (08:40)
[2020-08-09 08:45] LABS: Abs Immature Grans 0.18 10^3/uL (0.0-0.06); HCT 34.1 % (40.0-50.0); HGB 10.7 g/dL (13.5-17.5); MCH 29.9 pg (27.0-33.0); MCHC 31.4 % (32.0-36.0); MCV 95.3 fL (80-95); MPV 9.9 fL (8.0-11.0); Nucleated RBC 0 %; Platelet Count 416 10^3/uL (130-400); RBC 3.58 10^6/uL (4.36-5.78); RDW 14.1 % (11.8-14.1); RDW-SD 49.3 fL
[2020-08-09 08:50] LABS: WBC 26.76 10^3/uL (4.4-10.8)
[2020-08-09 09:02] LABS: ALT 11 U/L (16-63); AST 17 U/L (15-37); Albumin 2.1 g/dL (3.4-5.0); Alkaline Phosphatase 139 U/L (46-116); Anion Gap 12.8 mmol/L (3-11); BUN 34 mg/dL (7-18); Bilirubin, Total 0.6 mg/dL (0.2-1.0); CO2 22.2 mmol/L (21.0-32.0); Calcium 8.6 mg/dL (8.5-10.1); Chloride 113 mmol/L (98-107); Glucose 163 mg/dL (74-106); Potassium 3.1 mmol/L (3.5-5.1); Sodium 148 mmol/L (136-145); Total Protein 6.6 g/dL (6.4-8.2)
[2020-08-09 09:07] LABS: Absolute Lymphocyte Count 1.34 10^3/uL (1.2-3.4); Absolute Monocyte Count 1.34 10^3/uL (0.1-0.8); Absolute Neutrophil Count 24.08 10^3/uL (1.2-6.7); Bands % 3
[2020-08-09 09:08] LABS: Diff Comment Manual Differential; Polychromasia Present
[2020-08-09 17:32] LABS: CEA 10.5 ng/mL (See Note)
[2020-08-16] MEDS: Normal Saline Flush 10 ML SYR IVP (09:56)
[2020-08-16 10:00] LABS: Abs Immature Grans 0.07 10^3/uL (0.0-0.06); Absolute Basophil Count 0.04 10^3/uL (0.0-0.2); Absolute Eosinophil Count 0.09 10^3/uL (0.0-0.7); Absolute Lymphocyte Count 1.35 10^3/uL (1.2-3.4); Absolute Monocyte Count 0.58 10^3/uL (0.1-0.8); Absolute Neutrophil Count 5.17 10^3/uL (1.2-6.7); Basophils % 0.5; Eosinophils % 1.2; HGB 9.2 g/dL (13.5-17.5); Lymphocytes % 18.5; MCH 29.8 pg (27.0-33.0); MCHC 31.7 % (32.0-36.0); MCV 93.9 fL (80-95); MPV 10.8 fL (8.0-11.0); Monocytes % 7.9; Neutrophils % 70.9; Nucleated RBC 0 %; Platelet Count 276 10^3/uL (130-400); RBC 3.09 10^6/uL (4.36-5.78); RDW 14.2 % (11.8-14.1); RDW-SD 48.2 fL
[2020-08-16 10:14] LABS: ALT 12 U/L (16-63); AST 24 U/L (15-37); Albumin 1.7 g/dL (3.4-5.0); Alkaline Phosphatase 248 U/L (46-116); BUN 26 mg/dL (7-18); Bilirubin, Total 0.6 mg/dL (0.2-1.0); CREATININE 0.6 mg/dL (0.70-1.30); Calcium 8.1 mg/dL (8.5-10.1); Chloride 112 mmol/L (98-107); Glucose 147 mg/dL (74-106); Potassium 3.5 mmol/L (3.5-5.1); Sodium 144 mmol/L (136-145); Total Protein 6.2 g/dL (6.4-8.2)
[2020-08-16 18:19] LABS: CEA 15.7 ng/mL (See Note)
[2020-08-19 18:10] LABS: Magnesium 1.8 mg/dL (1.8-2.4); Triglyceride 106 mg/dL (<150)
[2020-08-19 18:31] LABS: PHOSPHORUS 3.3 mg/dL (2.6-4.7)
[2020-08-21 11:30] LABS: Prealbumin 7 mg/dL (20-40)
== END 2020-09-04 23:59 | disposition home or self-care (01) ==
LOC: INF 04:37
PROVIDERS: PCP Internal Medicine; Visit Provider Internal Medicine Hematology & Oncology
DX: C16.9 Malignant neoplasm of stomach, unspecified (principal); Z45.2 Encounter for adjustment and management of vascular access device
CPT/HCPCS: 36591; 80053; 82378; 83735; 84100; 84134; 84478; 85025

== ENCOUNTER 2020-08-16 13:51 | Inpatient (IN) | payer MEDICARE, OTHER, SELFPAY ==
[2020-08-16] VITALS (88 sets, daily range): BP systolic 55–109; BP diastolic 42–74; PULSE 64–117; RESP 1–39; TEMP 36.2–36.6; O2SAT 87–100
--- NOTE | 2020-08-16 13:45 | RT.EKG_ITS ---
APPROVED REPORT Exam: Resting ECG Patient Location: E HR:91 bpm ECG Measurements Heart Rate 91 [place]IS OK [id number] P [id number] QRSd 91 QRS -4 QT 323 T [id number] QTc 398 Conclusion Atrial fibrillation...? atrial activity Low voltage, extremity leads...all extremity leads <0.5mV Physician: Rate 91, atrial fibrillation, no STEMI. No prior EKG for comparison.
--- NOTE | 2020-08-16 14:09 | W.ED.GENAD ---
Discharge Plan Disposition Patient Disposition: [facility] INPATIENT Condition: Serious Discharge Details Chief Complaint: Allergic Clinical Impression: Pleural effusion, Breath shortness, Septic shock, Pneumonia, Metastatic cancer Primary Care Provider: Eris Tan ED Provider: Jose Peña Medical Decision Making 84-year-old male with a past medical history of gastric cancer, previous subtotal gastrectomy/Jewell-en-Y, paclitaxel colon cancer, hypertension, atrial fibrillation, recent evidence of multifocal pneumonia and septic shock on 08/09 for which she was admitted at [facility], with subsequent discharge on 08/11 at his request, presents today for potential allergic reaction After receiving his first dose of paclitaxel. Patient was at the [facility] receiving his first dose of paclitaxel when he began to feel particularly unwell. He initially had pain in his hips, which transitioned to his lower abdomen. He became very tachypneic, short of breath,O2 was 78% and was noted to be in hypotensive shock. He was started on supplemental oxygen, EMS eventually started him on 15 L and that brought him up to the 90s. The patient was treated with dexamethasone and Benadryl. During his stay at the [facility] he had no rashes, difficulty swallowing, or mental status changes. Patient was brought to the ER for further evaluation and management. Fluids were started by EMS. The patient was DNR/DNI in the past, but currently wants to be full code and live until September per records at [facility]. Patient denies any difficulty swallowing, he denies any rash, he denies any itching, he denies any difficulty with secretions. No other complaints at this time. Exam demonstrates a cachectic appearing male, mild respiratory distress, currently on 10 L. Oxygen has improved with this. Mild epigastric tenderness, but no signs of an acute surgical abdomen. No rashes or lesions, no signs of airway compromise at all. He does appear to be in shock, blood pressures in the 50s to 60s systolic. No other significant abnormalities on exam. Concern is for shock, with no other signs of anaphylaxis, with no vomiting or diarrhea, I seem to feel that anaphylactic shock is less likely. With his recent multifocal pneumonia just 5 days ago that only had a 2-day course of hospitalization, but is still currently on pneumonia I do feel that potential septic shock is is of a notable concern however this may be a multifactorial issue. We will rehydrate with fluids, start Levophed, get a chest abdomen pelvis CT scan, monitor closely and reassess. 4:21 PM Patient's laboratory work-up has returned, patient's white count is 17, notable left shift, proBNP elevated at 1400, EKG shows no STEMI. TSH elevated. CTA of the chest abdomen pelvis shows no PE, no dissection, bilateral effusions notably worse on the left than the right. Bilateral infiltrates suspicious for pneumonia versus metastatic disease as well. On reassessment the patient is clinically doing much better mentation is notably improved, he does not appear fearful at this current time. He is still on 10 L of supplemental oxygen but does not show significant work of breathing. Blood pressure has normalized with 2 L of normal saline, and has not needed Levophed. At this time the patient states that he did not mean what he previously said and I do not want any CPR or intubation if needed. My goal is to at home. I discussed this with the family and they understand and agree with the plan. I discussed the case with the hospitalist Dr. Valdez. He agrees. I have extensively reviewed the treatment plan with the patient. I have addressed all patient concerns at this time. I have also discussed the plan with the admitting physician and they agree with the current assessment and plan and have agreed to assume responsibility for the patient. All parties demonstrate verbal understanding and agreement with our assessment and plan at this time. The documentation in this chart was dictated using [employer] dictation software. Please excuse any dictation errors. EKG 14: 21 Rate 91, atrial fibrillation, no STEMI. No prior EKG for comparison. FINDINGS: Chest CT for pulmonary embolism: Pulmonary Arteries: No evidence of filling defect to suggest pulmonary emboli. Tracheobronchial tree: Patent where visualized. Mediastinum and Lisa: No dominant adenopathy or fluid collection. Pulmonary parenchyma: The lungs are not well evaluated due to respiratory motion, particularly at the bases.. There are bilateral alveolar infiltrates, in both upper and lower lobes. The findings are suspicious for bilateral pneumonia however metastatic disease is not excluded.. Pleura: Small right pleural effusion. Moderate left pleural effusion. Adjacent atelectasis. Heart: The heart is dilated. Mild coronary artery calcifications are seen. Aorta: Thoracic aorta non-dilated. No evidence of dissection. The ascending aorta measures 3.9 cm. Descending is ectatic. Bones: Degenerative changes. No gross lytic or blastic lesions. Tubes, Catheters, and Lines: Port over the right pectoral muscle. Abdomen and pelvic CT: There is a small amount ascites seen around the liver and spleen. Patient has a history of gastric cancer. The distal portion of the stomach has been resected. There are gastric stents communicating with small-bowel. A small-bowel stent is also seen. There is soft tissue density material within the stents , suspicious for tumor. There is also apparent mass at on the medial inferior border of the gastric remnant. There is soft tissue density stranding around the transverse colon. This is directly adjacent to the gastric stents. Tumor invasion is suspected. There is no evidence of obstruction. Contrast is seen in the colon. An rectosigmoid anastomosis is seen. The liver, spleen, kidneys, adrenals and pancreas are unremarkable. The gallbladder is somewhat distended. No stones or wall thickening or visible. The abdominal aorta and iliac arteries show mild calcification and no evidence of an aneurysm or occlusion. Prostate is mildly enlarged. The bladder is unremarkable. Degenerative changes are seen in the spine. No lytic or blastic lesions are visible. IMPRESSION: Chest: No evidence of pulmonary embolism. Bilateral pleural effusions. Bilateral infiltrates suspicious for pneumonia. Metastatic disease is not excluded. Abdomen and pelvic CT: Partial gastrectomy and gastrojejunal anastomosis. Gastro jejunal stents are in place. There is abnormal wall thickening with mass extension outside the contours of the stomach and jejunal stents consistent with invasive mass with adjacent involvement of the transverse colon. HPI General Date/Time Provider Initiated Documentation: 08/16/20 13:56. HPI Narrative: 84-year-old male with a past medical history of gastric cancer, previous subtotal gastrectomy/Jewell-en-Y, paclitaxel colon cancer, hypertension, atrial fibrillation, recent evidence of multifocal pneumonia and septic shock on 08/09 for which she was admitted at [facility], with subsequent discharge on 08/11 at his request, presents today for potential allergic reaction After receiving his first dose of paclitaxel. Patient was at the cancer center receiving his first dose of paclitaxel when he began to feel particularly unwell. He initially had pain in his hips, which transitioned to his lower abdomen. He became very tachypneic, short of breath,O2 was 78% and was noted to be in hypotensive shock. He was started on supplemental oxygen, EMS eventually started him on 15 L and that brought him up to the 90s. The patient was treated with dexamethasone and Benadryl. During his stay at the cancer center he had no rashes, difficulty swallowing, or mental status changes. Patient was brought to the ER for further evaluation and management. Fluids were started by EMS. The patient was DNR/DNI in the past, but currently wants to be full code and live until September per records at [facility]. Patient denies any difficulty swallowing, he denies any rash, he denies any itching, he denies any difficulty with secretions. No other complaints at this time. Related Data Allergies Allergy/AdvReac Type Severity Reaction Status Date / Time JOLANTA Inhibitors Allergy Unverified 08/16/20 14:01 General Stated Complaint: Allergic CANDY: 2 Review of Systems All systems reviewed & are unremarkable except as noted in HPI and below PFSH Social History Smoking/Tobacco Use Status: Former Tobacco Use Smoking risk assessment performed?: Yes Alcohol Intake: former Drug use: Never Substance use type: does not use Do you feel safe at home: Yes Do you feel safe in your relationship?: Yes Additional Social history: Son lives with patient Exam Narrative Exam Narrative: 1.Const: Cachectic appearing 2.Eyes: PERRL, no conjunctival injection, and symmetrical lids. 3.ENT: Atraumatic external nose and ears. Moist MM. Neck: Symmetric, trachea midline, No thyromegaly. No hypersecretion, no swelling in the oropharynx. 4.CVS: +S1/S2, No murmurs or gallops. Peripheral pulses 2+ and equal in all extremities. Brisk capillary refill in all extremities. 5.RESP: Diminished breath sounds, no wheezes or rhonchi. 6.GI: Soft, Nondistended, mild epigastric tenderness. No hepatosplenomegaly. No guarding or rebound. 7.MSK: Normocephalic/Atraumatic, Extremities w/o deformity or ttp No cyanosis or clubbing, Normal movement of all extremities 8.Skin: Warm, Dry. No rashes or lesions. 9.Neuro: striker off II-XII grossly intact. Sensation grossly intact, no focal neurologic deficits. 10.Psych: (AAO) x3. Appropriate mood and affect Course Vital Signs Vital signs: Vital Signs Temperature 36.2 C L 08/16/20 13:55 Pulse 108 H 08/16/20 13:55 Respiratory Rate 32 H 08/16/20 13:55 Blood Pressure 65/43 L 08/16/20 13:55 Temperature 36.2 C L 08/16/20 13:55 Temperature Source Skin 08/16/20 13:55 Pulse 108 H 08/16/20 13:55 Respiratory Rate 32 H 08/16/20 13:55 Blood Pressure 65/43 L 08/16/20 13:55 Blood Pressure Position Sitting 08/16/20 13:55 Oxygen Delivery Method Non-Rebreather 08/16/20 13:55 Pain Level 6 08/16/20 13:55 Lab/Test Results Lab/Test Results: 08/16/20 13:58 Blood Blood Culture - Pending 08/16/20 13:58 Blood Blood Culture - Pending Laboratory Tests Range/Units 08/16/20 14:04 VBG Lactate Cancelled
[2020-08-16] MEDS: Normal Saline 1,000 ML 1000 ML IV ×2 (14:15→15:36)
[2020-08-16 14:37] LABS: Abs Immature Grans 1.01 10^3/uL (0.0-0.06); HCT 35.8 % (40.0-50.0); HGB 11.2 g/dL (13.5-17.5); MCH 29.5 pg (27.0-33.0); MCHC 31.3 % (32.0-36.0); MCV 94.2 fL (80-95); MPV 11.1 fL (8.0-11.0); Nucleated RBC 0 %; Platelet Count 339 10^3/uL (130-400); RDW 14.5 % (11.8-14.1); RDW-SD 49.6 fL
[2020-08-16 14:39] LABS: Lactate 2.6 mmol/L (0.6-1.4)
[2020-08-16 14:50] LABS: INR 1.3 (0.9-1.1); PTT Activated 26.1 sec (21.0-27.5); Prothrombin Time 13.1 sec (9.3-11.0)
[2020-08-16 14:59] LABS: Absolute Lymphocyte Count 1.91 10^3/uL (1.2-3.4); Absolute Neutrophil Count 14.57 10^3/uL (1.2-6.7); Bands % 3
[2020-08-16 15:00] LABS: Absolute Monocyte Count 0.52 10^3/uL (0.1-0.8); Atypical Lymphocytes % 0; Diff Comment Manual Differential; Metamyelocytes % 1; Myelocytes % 1; Polychromasia Present
[2020-08-16 15:08] LABS: ALT 15 U/L (16-63); AST 24 U/L (15-37); Albumin 1.7 g/dL (3.4-5.0); Alkaline Phosphatase 254 U/L (46-116); Anion Gap 10.4 mmol/L (3-11); BUN 25 mg/dL (7-18); Bilirubin, Total 0.7 mg/dL (0.2-1.0); CO2 22.6 mmol/L (21.0-32.0); CREATININE 0.8 mg/dL (0.70-1.30); Chloride 111 mmol/L (98-107); Glucose 161 mg/dL (74-106); Lipase 87 U/L (73-393); NT-proBNP 1463 pg/mL (<300); Potassium 3.6 mmol/L (3.5-5.1); Sodium 144 mmol/L (136-145); Total Protein 6.3 g/dL (6.4-8.2)
[2020-08-16 15:26] LABS: FREE T4 1.14 ng/dL (0.76-1.46)
[2020-08-16] MEDS: Omnipaque 350 MG/ML 100 ML BTL IJ (15:26)
[2020-08-16] MEDS: Normal Saline - Diluent 50 ML VIAL IV (15:27)
[2020-08-16] MEDS: Normal Saline Flush 10 ML SYR IVP ×2 (15:27→20:57)
--- NOTE | 2020-08-16 15:27 | DI.CT_ITS ---
EXAM: CT CHEST PE ABD PELVIS W no CLINICAL HISTORY: epigastric pain, cancer, in hypotensive shock. TECHNIQUE: Imaging Protocol: Axial CT angiography was performed with multi-slice acquisition and mu lti-planar and/or 3D reconstructions. CONTRAST MATERIAL: Intravenous: Omnipaque 350 Contrast volume:100 cc COMPARISON: No exams were available for comparison FINDINGS: Chest CT for pulmonary embolism: Pulmonary Arteries: No evidence of filling defect to suggest pulmona ry emboli. Tracheobronchial tree: Patent where visualized. Mediastinum and Lisa: No dominant adenopathy or fluid collection. Pulmonary parenchyma: The lungs are not well evaluated due to respiratory motion, particularly at the bases.. There are bilateral alveolar infiltrates, in both upper and lower lobes. The findings are suspicious for bilateral pneumonia however metastatic disease is not excluded.. Pleura: Small right pleural effusion. Moderate left pleural effusion. Adjacent atelectasis. Heart: The heart is dilated. Mild coronary artery calcifications are seen. Aorta: Thoracic aorta non-dilated. No evidence of dissection. The ascending aorta measures 3.9 cm. Descending is ectatic. Bones: Degenerative changes. No gross lytic or blastic lesions. Tubes, Catheters, and Lines: Port over the right pectoral muscle. Abdomen and pelvic CT: There is a small amount ascites seen around the liver and spleen. Patient has a history of gastric cancer. The distal portion of the stomach has been resected. There are gastr ic stents communicating with small-bowel. A small-bowel stent is also seen. There is soft tissue de nsity material within the stents , suspicious for tumor. There is also apparent mass at on the media l inferior border of the gastric remnant. There is soft tissue density stranding around the transver se colon. This is directly adjacent to the gastric stents. Tumor invasion is suspected. There is n o evidence of obstruction. Contrast is seen in the colon. An rectosigmoid anastomosis is seen. The liver, spleen, kidneys, adrenals and pancreas are unremarkable. The gallbladder is somewhat disten ded. No stones or wall thickening or visible. The abdominal aorta and iliac arteries show mild calc ification and no evidence of an aneurysm or occlusion. Prostate is mildly enlarged. The bladder is unremarkable. Degenerative changes are seen in the spine. No lytic or blastic lesions are visible. IMPRESSION: Chest: No evidence of pulmonary embolism. Bilateral pleural effusions. Bilateral infiltrates suspic ious for pneumonia. Metastatic disease is not excluded. Abdomen and pelvic CT: Partial gastrectomy and gastrojejunal anastomosis. Gastro jejunal stents are in place. There is abnormal wall thickening with mass extension outside the contours of the stomach and jejunal stents consistent with invasive mass with adjacent involvement of the transverse colon. RADIATION DOSE DELIVERED: 950.55mGy.cm Total DLP DATA REPOSITORY: All CT scans at this facility are submitted to the National Radiology Data Registry (NRDR) Dose Index Registry (DIR) with the [employer] (ACR). RADIATION OPTIMIZATION: All CT scans at this facility use at least one of these dose optimization te chniques: automated exposure control; mA and/or kV adjustment per patient size (includes targeted exa ms where dose is matched to clinical indication); or iterative reconstruction.
[2020-08-16 15:51] LABS: COVID-19 PCR Negative (Negative); Influenza A PCR Negative (Negative); Influenza B PCR Negative (Negative); RSV PCR Negative (Negative)
[2020-08-16] MEDS: PIPERACILLIN/TAZO 3.375 GM in Normal Saline 50 ML IVPB (16:15)
[2020-08-16 16:50] LABS: Bilirubin Negative (Negative); Blood Trace-intact (Negative); Clarity Clear (Clear); Glucose Negative (Negative); Ketones Negative (Negative); Leukocyte Esterase Negative (Negative); Nitrite Negative (Negative); Specific Gravity 1.025 (1.005-1.025); Urobilinogen 0.2 EU/dL (Up TO 0.2); pH 5.5 (5-8)
[2020-08-16] MEDS: Lidocaine 2% Jelly 6 ML SYR (16:52)
[2020-08-16] MEDS: VANCOMYCIN/WATER (PEG) 1.25 GM/250 ML BAG IVPB (16:52)
[2020-08-16 17:12] LABS: Bacteria Negative HPF (Negative); C & S Indicated? No; Casts Negative LPF (Negative); Crystals Negative HPF (Negative); Epithelial Cells Rare HPF (Negative); Mucus Negative (Negative)
[2020-08-16] MEDS: Albuterol/Ipratropium 3 ML UPD VIAL UPD ×2 (18:47→23:41)
--- NOTE | 2020-08-16 19:19 | HPE_ITS ---
Date of service: 08/16/20 Time of Service: 19:19 Assessment and Plan Assessment and plan (1) Pneumonia: Status: Acute Assessment and plan: Broad-spectrum antibiotics with vancomycin Zosyn and Levaquin. prn nebulizer treatments supplemental oxygen and stress dose IV corticosteroids (2) Septic shock: Status: Acute Assessment and plan: IV fluid hydration if he becomes hypotensive again patient will be given vasopressors to support him hemodynamically. Patient has expressed that he does not want to be intubated and placed on mechanical ventilation although he does want full medical treatment as he has a goal to make it to his son's wedding in October. He does not want defibrillation and CPR. (3) Metastatic cancer: Status: Acute (4) Pleural effusion: Status: Acute Assessment and plan: Bilateral pleural effusions these may be metastatic effusions or parapneumonic. (5) DVT prophylaxis: Status: Acute Assessment and plan: Lovenox 40 mg subcutaneously daily History of Present Illness History of Present Illness Chief Complaint: Hypotension, hypoxemia Narrative: 84-year-old male with a history of gastric cancer, status post subtotal gastrectomy/Jewell-en-Y, currently on paclitaxel chemotherapy under the care of Dr. Bingham at [facility]. Other comorbidities include atrial fibrillation and hypertension. Patient was recently hospitalized that [facility] in [facility] for multifocal pneumonia and septic shock on August 09 through August 11, 2020. After receiving his paclitaxel he began to feel unwell complaining of pain in his hips and then in his lower abdomen and then became tachypneic and short of breath with a SPO2 of 78% and was noted to be hypotensive. He was started on supplemental oxygen and given dexamethasone and Benadryl for potential allergic reaction. However during his stay at the cancer center he had no rashes no dysphagia no angioedema no mental status changes. Upon EMS arrival and put him on 15 L of oxygen which brought his O2 s aturation up into the 90s. He was brought to the emergency room at [facility] for further evaluation and treatment. Fluids were started by EMS. Patient has a DNR/DNI order but he still wants full treatment as he has a goal to live until October to be there for his son's wedding. Upon arrival emergency department he was in respiratory distress on oxygen at 10 L/min complain mild epigastric tenderness he had no rashes or lesions or angioedema. He did appear to be in shock with systolic pressure in the 50s to 60s. He was given 2 L of IV fluids which brought his systolic pressure up in the 90s. Stat CT scan of the chest abdomen pelvis was ordered along with routine labs and blood cultures. He was started on parenteral antibiotics in the emergency department including vancomycin and Zosyn and Levaquin was ordered but had not been given by the time he came up to the ICU. Since that time I have ordered his Levaquin 750 [address] to be [address] of the chest was performed there is no pulmonary embolism he has bilateral pleural effusions bilateral infiltrates consistent with pneumonia although the radiologist cannot exclude metastatic disease. Abdomen pelvis showed evidence of partial gastrectomy and gastrojejunal anastamosis. Gastrojejunal stents are in place there is abnormal wall thickening with mass extension outside the contours of the stomach and jejunal stents consistent with invasive mass adjacent involvement of the transverse colon. Routine labs include a CBC that showed a white count of 17,300 whereas earlier this morning it was 7300. Hemoglobin 11.2 g hematocrit 35% platelet count 3 or 39,000. Leftward shift with 14,000 neutrophils. CMP demonstrates mildly elevated BUN of 25 normal creatinine 0.8 anion gap is normal at 10.4. Glucose 161. Calcium is 8.0. AST ALT total bilirubin all normal. Alkaline phosphatase elevated to 54. proBNP is elevated at 1463. Albumin is low at 1.7 and TSH is high at 7 with a normal free T4 1.14. Procalcitonin was not done but is been ordered. Troponin was not initially performed but has been ordered and resulted at less than 0.05. Blood lactate is elevated 2.6. EKG was performed demonstrates atrial fibrillation at a rate 91 bpm there is diffuse T wave flattening but no ST elevation or depression. Patient is now admitted to the intensive care unit for broad-spectrum antibiotics and IV fluids to treat sepsis and pneumonia. Review of Systems All systems reviewed & are unremarkable except as noted in HPI and below Constitutional Constitutional: Reports anorexia, Reports body ache(s), Reports lethargy and Reports poor appetite Cardiovascular Cardiovascular: Denies chest pain and Reports dyspnea Respiratory Respiratory: Reports as per HPI and Reports dyspnea Gastrointestinal Gastrointestinal: Reports abdominal pain, Reports nausea and Reports vomiting Genitourinary Genitourinary: Reports system reviewed and no additional complaints, except as documented Musculoskeletal Musculoskeletal: Reports myalgias Integumentary/Breasts Skin/Breast: Reports system reviewed and no additional complaints, except as documented Neurologic Neurologic: Reports system reviewed and no additional complaints, except as documented Endocrine Endocrine: Reports system reviewed and no additional complaints, except as documented Hematologic/Lymphatic Hematologic/Lymphatic: Reports system reviewed and no additional complaints, except as documented [facility] Medical History (Updated 08/16/20 @ 21:20 by Anatoly Rodriguez) Gastric cancer Metastatic cancer Pneumonia Surgical History (Updated 08/16/20 @ 21:12 by Anatoly Rodriguez) Status post total gastrectomy and Jewell-en-Y esophagojejunal anastomosis Social History Smoking/Tobacco Use Status: Former Tobacco Use Smoking risk assessment performed?: Yes Alcohol Intake: former Drug use: Never Substance use type: does not use Do you feel safe at home: Yes Do you feel safe in your relationship?: Yes Additional Social history: Son lives with patient Meds Home Medications and Allergies Allergies Allergy/AdvReac Type Severity Reaction Status Date / Time JOLANTA Inhibitors Allergy Unverified 08/16/20 14:01 Exam Narrative Exam Narrative: Cachectic elderly male currently in no respiratory distress resting in bed in semifowler position wearing nasal cannula is per minute with oxygen saturation of 100% HEENT reveals dry oral mucosa without exudate. TMs obscured by excess cerumen. Nares with dry mucosa Neck supple no JVD no carotid bruits carotid pulses are tachycardic and regular no cervical adenopathy no thyromegaly Lungs with markedly diminished breath sounds over both bases upper lung ball clear without rhonchi or wheezes Heart is tachycardic no appreciable murmur rub Chest wall reveals a port on the right side. No induration or erythema Abdomen mild epigastric tenderness palpable fullness in the left upper quadrant no bruits no rebound tenderness or guarding Extremities without peripheral cyanosis or edema. Feet are not cool and no cyanosis normal pedal pulses Neuro exam grossly intact no focal deficits Results Labs Result diagrams: 08/16/20 14:25 08/16/20 14:25 Labs: Laboratory Results - last 24 hr 08/16/20 08/16/20 08/16/20 14:04 14:10 14:10 WBC RBC Hgb Hct MCV MCH MCHC RDW Plt Count MPV Immature Gran % Neutrophils % Band Neutrophils % Lymphocytes % Atypical Lymphs % Monocytes % Eosinophils % Basophils % Metamyelocytes % Myelocytes % Promyelocytes % Other Cells % Nucleated RBC % Absolute Neutrophils Absolute Lymphocytes Absolute Monocytes Absolute Eosinophils Absolute Basophils RBC Morphology Polychromasia Hypochromasia Poikilocytosis Basophilic Stippling Anisocytosis Microcytosis Macrocytosis Spherocytes Tear Drop Cells Ovalocytes Stomatocytes [place] Bodies Miller Cells/Echinocytes Acanthocytes (Spur) Schistocytes PT INR APTT VBG Lactate Cancelled Cancelled Sodium Cancelled Potassium Cancelled Chloride Cancelled Carbon Dioxide Cancelled Anion Gap Cancelled BUN Cancelled Creatinine Cancelled Estimated GFR/1.73 m2 Cancelled Glucose Cancelled Calcium Cancelled Total Bilirubin Cancelled AST Cancelled ALT Cancelled Alkaline Phosphatase Cancelled Troponin I Cancelled NT-Pro-B Natriuret Pep Cancelled Total Protein Cancelled Albumin Cancelled Lipase Cancelled TSH Cancelled Free T4 Urine Color Urine Clarity Urine pH Ur Specific [place] Urine Protein Urine Ketones Urine Blood Urine Nitrite Urine Bilirubin Urine Urobilinogen Ur Leukocyte Esterase Urine RBC Urine WBC Ur Epithelial Cells Urine Crystals Urine Bacteria Urine Casts Urine Mucus Ur Culture Indicated? Urine Glucose COVID-19 Source SARS-CoV-2 (PCR) Influenza Type A (PCR) Influenza Type B (PCR) RSV (PCR) 08/16/20 08/16/20 08/16/20 14:10 14:25 14:25 WBC Cancelled 17.34 H D RBC Cancelled 3.80 L Hgb Cancelled 11.2 L Hct Cancelled 35.8 L D MCV Cancelled 94.2 MCH Cancelled 29.5 MCHC Cancelled 31.3 L RDW Cancelled 14.5 H Plt Count Cancelled 339 MPV Cancelled 11.1 H Immature Gran % Cancelled 0.0 Neutrophils % Cancelled 81.0 Band Neutrophils % Cancelled 3 Lymphocytes % Cancelled 11.0 Atypical Lymphs % Cancelled 0 Monocytes % Cancelled 3.0 Eosinophils % Cancelled 0.0 Basophils % Cancelled 0.0 Metamyelocytes % Cancelled 1 Myelocytes % Cancelled 1 Promyelocytes % Cancelled Other Cells % Cancelled Nucleated RBC % Cancelled 0 Absolute Neutrophils Cancelled 14.57 H Absolute Lymphocytes Cancelled 1.91 Absolute Monocytes Cancelled 0.52 Absolute Eosinophils Cancelled 0.00 Absolute Basophils Cancelled 0.00 RBC Morphology Cancelled See below Polychromasia Cancelled Present Hypochromasia Cancelled Poikilocytosis Cancelled Basophilic Stippling Cancelled Anisocytosis Cancelled Microcytosis Cancelled Macrocytosis Cancelled Spherocytes Cancelled Tear Drop Cells Cancelled Ovalocytes Cancelled Stomatocytes Cancelled [place] Bodies Cancelled [place] Cells/Echinocytes Cancelled Acanthocytes (Spur) Cancelled Schistocytes Cancelled PT 13.1 H INR 1.3 H APTT 26.1 VBG Lactate Sodium Potassium Chloride Carbon Dioxide Anion Gap BUN Creatinine Estimated GFR/1.73 m2 Glucose Calcium Total Bilirubin AST ALT Alkaline Phosphatase Troponin I NT-Pro-B Natriuret Pep Total Protein Albumin Lipase TSH Free T4 Urine Color Urine Clarity Urine pH Ur Specific [place] Urine Protein Urine Ketones Urine Blood Urine Nitrite Urine Bilirubin Urine Urobilinogen Ur Leukocyte Esterase Urine RBC Urine WBC Ur Epithelial Cells Urine Crystals Urine Bacteria Urine Casts Urine Mucus Ur Culture Indicated? Urine Glucose COVID-19 Source SARS-CoV-2 (PCR) Influenza Type A (PCR) Influenza Type B (PCR) RSV (PCR) 08/16/20 08/16/20 08/16/20 14:25 14:25 14:43 WBC RBC Hgb Hct MCV MCH MCHC RDW Plt Count MPV Immature Gran % Neutrophils % Band Neutrophils % Lymphocytes % Atypical Lymphs % Monocytes % Eosinophils % Basophils % Metamyelocytes % Myelocytes % Promyelocytes % Other Cells % Nucleated RBC % Absolute Neutrophils Absolute Lymphocytes Absolute Monocytes Absolute Eosinophils Absolute Basophils RBC Morphology Polychromasia Hypochromasia Poikilocytosis Basophilic Stippling Anisocytosis Microcytosis Macrocytosis Spherocytes Tear Drop Cells Ovalocytes Stomatocytes [place] Bodies [place] Cells/Echinocytes Acanthocytes (Spur) Schistocytes PT INR APTT VBG Lactate 2.6 H* Sodium 144 Potassium 3.6 Chloride 111 H Carbon Dioxide 22.6 Anion Gap 10.4 BUN 25 H Creatinine 0.8 Estimated GFR/1.73 m2 >= 60.00 Glucose 161 H Calcium 8.0 L Total Bilirubin 0.7 AST 24 ALT 15 L Alkaline Phosphatase 254 H Troponin I NT-Pro-B Natriuret Pep 1463 H Total Protein 6.3 L Albumin 1.7 L Lipase 87 TSH 7.00 H Free T4 1.14 Urine Color Urine Clarity Urine pH Ur Specific [place] Urine Protein Urine Ketones Urine Blood Urine Nitrite Urine Bilirubin Urine Urobilinogen Ur Leukocyte Esterase Urine RBC Urine WBC Ur Epithelial Cells Urine Crystals Urine Bacteria Urine Casts Urine Mucus Ur Culture Indicated? Urine Glucose COVID-19 Source Nasopharyx SARS-CoV-2 (PCR) Negative Influenza Type A (PCR) Negative Influenza Type B (PCR) Negative RSV (PCR) Negative 08/16/20 16:44 WBC RBC Hgb Hct MCV MCH MCHC RDW Plt Count MPV Immature Gran % Neutrophils % Band Neutrophils % Lymphocytes % Atypical Lymphs % Monocytes % Eosinophils % Basophils % Metamyelocytes % Myelocytes % Promyelocytes % Other Cells % Nucleated RBC % Absolute Neutrophils Absolute Lymphocytes Absolute Monocytes Absolute Eosinophils Absolute Basophils RBC Morphology Polychromasia Hypochromasia Poikilocytosis Basophilic Stippling Anisocytosis Microcytosis Macrocytosis Spherocytes Tear Drop Cells Ovalocytes Stomatocytes [place] Bodies Miller Cells/Echinocytes Acanthocytes (Spur) Schistocytes PT INR APTT VBG Lactate Sodium Potassium Chloride Carbon Dioxide Anion Gap BUN Creatinine Estimated GFR/1.73 m2 Glucose Calcium Total Bilirubin AST ALT Alkaline Phosphatase Troponin I NT-Pro-B Natriuret Pep Total Protein Albumin Lipase TSH Free T4 Urine Color Yellow Urine Clarity Clear Urine pH 5.5 Ur Specific [place] 1.025 Urine Protein Trace H Urine Ketones Negative Urine Blood Trace-intact H Urine Nitrite Negative Urine Bilirubin Negative Urine Urobilinogen 0.2 Ur Leukocyte Esterase Negative Urine RBC 3-5 H Urine WBC 3-5 Ur Epithelial Cells Rare Urine Crystals Negative Urine Bacteria Negative Urine Casts Negative Urine Mucus Negative Ur Culture Indicated? No Urine Glucose Negative COVID-19 Source SARS-CoV-2 (PCR) Influenza Type A (PCR) Influenza Type B (PCR) RSV (PCR) Last Vital Signs Temp 36.4 C L 08/16/20 18:37 Pulse 106 H 08/16/20 18:47 Resp 15 08/16/20 18:47 BP 92/55 L 08/16/20 18:37 Pulse Ox 100 08/16/20 18:47 COVID-19 Screening Have you, or household traveled for leisure in last 14 days?: No Had IN PERSON contact w/suspected or confirmed C-19 person: No
[2020-08-16 19:25] LABS: Troponin I < 0.05 ng/mL (<0.06)
[2020-08-16] MEDS: Enoxaparin 40 MG/0.4 ML SYR SC (20:10)
[2020-08-16] MEDS: Hydrocortisone SOD SUC. 100 MG VIAL IVP (20:11)
[2020-08-16] MEDS: levoFLOXacin 750 MG/150 ML BAG 100 MG IVPB (20:12)
[2020-08-16] MEDS: PIPERACILLIN/TAZO 4.5 GM in Normal Saline 100 ML IVPB (20:42)
[2020-08-16 21:09] LABS: Lactate 1.4 mmol/L (0.6-1.4)
[2020-08-16 21:36] LABS: Procalcitonin 0.1 ng/mL
[2020-08-16] MEDS: POTASSIUM CHLORIDE/0.9% NACL 1,000 ML 150 MEQ IV (22:04)
[2020-08-16] MEDS: Normal Saline 500 ML IV (22:40)
[2020-08-16 23:26] LABS: Troponin I < 0.05 ng/mL (<0.06)
[2020-08-16] MEDS: Hydrocortisone SOD SUC. 100 MG VIAL 50 MG IVP (23:44)
[2020-08-17] VITALS (25 sets, daily range): BP systolic 85–138; BP diastolic 52–82; PULSE 84–117; RESP 1–29; TEMP 37.1; O2SAT 94–99
[2020-08-17] MEDS: VANCOMYCIN/WATER (PEG) 1 GM/200 ML BAG IV (03:42)
[2020-08-17] MEDS: POTASSIUM CHLORIDE/0.9% NACL 1,000 ML 150 MEQ IV ×2 (05:28→12:07)
[2020-08-17] MEDS: Albuterol/Ipratropium 3 ML UPD VIAL UPD ×2 (06:12→12:04)
[2020-08-17] MEDS: Hydrocortisone SOD SUC. 100 MG VIAL 50 MG IVP ×2 (06:12→12:12)
[2020-08-17] MEDS: PIPERACILLIN/TAZO 4.5 GM in Normal Saline 100 ML IVPB (06:15)
[2020-08-17 06:51] LABS: Lactate 1.9 mmol/L (0.6-1.4)
[2020-08-17 06:53] LABS: Nucleated RBC 0 %
[2020-08-17 07:06] LABS: ALT 13 U/L (16-63); AST 19 U/L (15-37); Albumin 1.6 g/dL (3.4-5.0); Alkaline Phosphatase 183 U/L (46-116); Anion Gap 10.4 mmol/L (3-11); BUN 25 mg/dL (7-18); Bilirubin, Total 0.6 mg/dL (0.2-1.0); CO2 19.6 mmol/L (21.0-32.0); CREATININE 0.8 mg/dL (0.70-1.30); Calcium 7.6 mg/dL (8.5-10.1); Chloride 115 mmol/L (98-107); Glucose 194 mg/dL (74-106); Potassium 3.9 mmol/L (3.5-5.1); Sodium 145 mmol/L (136-145); Total Protein 5.4 g/dL (6.4-8.2)
[2020-08-17 07:36] LABS: Abs Immature Grans 0.14 10^3/uL (0.0-0.06); Absolute Basophil Count 0.01 10^3/uL (0.0-0.2); Absolute Lymphocyte Count 0.68 10^3/uL (1.2-3.4); Absolute Monocyte Count 0.08 10^3/uL (0.1-0.8); Basophils % 0.2; HCT 27.3 % (40.0-50.0); HGB 8.5 g/dL (13.5-17.5); Immature Grans % 2.3; Lymphocytes % 11.3; MCH 29.3 pg (27.0-33.0); MCHC 31.1 % (32.0-36.0); MCV 94.1 fL (80-95); MPV 11.1 fL (8.0-11.0); Monocytes % 1.3; Neutrophils % 84.9; RDW 14.4 % (11.8-14.1); RDW-SD 49.4 fL; WBC 6.01 10^3/uL (4.4-10.8)
[2020-08-17 07:56] LABS: Diff Comment Agrees w/ Instrument; Hypochromasia 1+; Polychromasia Present
--- NOTE | 2020-08-17 13:10 | PDOC.CMIN ---
- If Service Date Differs Date of service: 08/17/20 Time of Service: 13:10 Care Management Initial Assess REASON FOR HOSPITALIZATION:: Septic Shock, Pneumonia PAST MEDICAL HISTORY/PAST SURGICAL HISTORY:: Gastric cancer, metastatic cancer, pneumonia, total gastrectomy and viv-en-Y esophagojejunal anastomosis PREVIOUS FUNCTIONAL STATUS/SOCIAL/FAMILY SUPPORTS:: Marv resides in [place], [place]. His adult son, German resides with him and supports his care needs including IV nutrition. CURRENT FUNCTIONAL STATUS:: Marv remains in the ICU at this time; CM continues to follow. Has patient been provided with info about the portal/API?: No Did the patient sign up for the portal?: No CODE STATUS:: DNR/DNI INSURANCE COVERAGE / FINANCIAL ISSUES:: Medicare. [employer] CURRENT HOME/COMMUNITY SERVICES/EQUIPMENT:: VNA RN 1x/wk: goal to stay alive until October 26 for family event. Wants to at home. IV nutrition [email or web address] managed by son. PRIMARY CARE PHYSICIAN:: Eris Tan POTENTIAL DISCHARGE NEEDS:: Resumption of VNA and home IV nutrition. Palliative care consult-to follow in the community. PATIENT/FAMILY EDUCATION NEEDS:: Review of discharge instructions, discuss Ask Me Three. ANTICIPATED BARRIERS TO DISCHARGE:: None identified. TRANSPORTATION:: Via private vehicle with sonGerman. PLAN:: Marv remains in the ICU at this time. He is on bedrest, IV ABX, IVF, nebulizer treatements, O2 and stress dose IV corticosteroids. His wishes are to stay alive until October 26 to see his son . Anticipate he will return home when ready, resume previous supports and transport via private vehicle with his son. CM continues to follow.
--- NOTE | 2020-08-17 13:49 | DSE_ITS ---
Time of Service: 13:50 DS: Diagnosis Discharge Diagnosis (1) Pneumonia: Status: Acute (2) Septic shock: Status: Acute (3) Metastatic cancer: Status: Acute (4) Pleural effusion: Status: Acute (5) DVT prophylaxis: Status: Acute Discharge Plan Disposition Patient Disposition: HOME Condition: Improving Discharge Details Reason For Visit: SEPTIC SHOCK, PNEUMONIA Admit Date/Time: 08/16/20 16:15 Admit Provider: Anatoly Rodriguez Attending Provider: Anatoly Rodriguez Primary Care Provider: Eris Tan Hospital Course Hospital Course: This is an 84-year-old male with a history of gastric cancer, status post subtotal gastrectomy/Jewell-en-Y, currently on paclitaxel chemotherapy under the care of Dr. Bingham at [facility]. Other comorbidities include atrial fibrillation and hypertension. Patient was recently hospitalized that [facility] in [facility] for multifocal pneumonia and septic shock on August 09 through August 11, 2020. After receiving his paclitaxel he began to feel unwell complaining of pain in his hips and then in his lower abdomen and then became tachypneic and short of breath with a SPO2 of 78% and was noted to be hypotensive. He was started on supplemental oxygen and given dexamethasone and Benadryl for potential allergic reaction. However during his stay at the cancer center he had no rashes no dysphagia no angioedema no mental status changes. Upon EMS arrival and put him on 15 L of oxygen which brought his O2 saturation up into the 90s. He was brought to the emergency room at [facility] for further evaluation and treatment. Fluids were started by EMS. Patient has a DNR/DNI order but he still wants full treatment as he has a goal to live until October to be there for his son's wedding. Upon arrival emergency department he was in respiratory distress on oxygen at 10 L/min complain mild epigastric tenderness he had no rashes or lesions or angioedema. He did appear to be in shock with systolic pressure in the 50s to 60s. He was given 2 L of IV fluids which brought his systolic pressure up in the 90s. Stat CT scan of the chest abdomen pelvis was ordered along with routine labs and blood cultures. He was started on parenteral antibiotics in the emergency department including vancomycin, Zosyn and Levaquin [address] of the chest was performed there is no pulmonary embolism he has bilateral pleural effusions bilateral infiltrates consistent with pneumonia although the radiologist cannot exclude metastatic disease. Abdomen pelvis showed evidence of partial gastrectomy and gastrojejunal anastamosis. Gastrojejunal stents are in place there is abnormal wall thickening with mass extension outside the contours of the stomach and jejunal stents consistent with invasive mass adjacent involvement of the transverse colon. Routine labs include a CBC that showed a white count of 17,300 whereas earlier this morning it was 7300. Hemoglobin 11.2 g hematocrit 35% platelet count 3 or 39,000. Leftward shift with 14,000 neutrophils. CMP demonstrates mildly elevated BUN of 25 normal creatinine 0.8 anion gap is normal at 10.4. Glucose 161. Calcium is 8.0. AST ALT total bilirubin all normal. Alkaline phosphatase elevated to 54. proBNP is elevated at 1463. Albumin is low at 1.7 and TSH is high at 7 with a normal free T4 1.14. Procalcitonin 0.1. Troponin less than 0.05. Blood lactate elevated at 2.6. EKG was performed demonstrates atrial fibrillation at a rate 91 bpm there is diffuse T wave flattening but no ST elevation or depression. His WBC count normalized. His lactate normalized to 1.4, then a repeat was 1.9. His metoprolol dosing will change to a nightly frequency rather than in the AM. Cont diltiazem in the AM Augmentin 875mg BID for 7 days initiated. He will continue on a course of Levaquin 750mg po daily (liquid form). He may cut the Augmentin into halves d/t dysphagia. Cont oncology follow up as scheduled. PCP in the next 2-5 days. Home Meds and New Rx's Prescriptions: New amoxicillin-pot clavulanate 875-125 mg Tablet 1 tab PO BID Qty: 14 RF: 0 levofloxacin 250 mg/10 mL solution 750 mg PO DAILY Qty: 200 RF: 0 Continued fluconazole 200 mg tablet RF: 0 diltiazem HCl 120 mg capsule,extended release 24hr PO RF: 0 ondansetron 4 mg tablet,disintegrating RF: 0 Eliquis 5 mg tablet RF: 0 Changed metoprolol succinate 50 mg tablet extended release 24 hr 50 mg PO HS Qty: 0 RF: 0 Discontinued potassium chloride 20 mEq packet RF: 0 omeprazole 20 mg capsule,delayed release(DR/EC) RF: 0 Discharge Instructions Activity:: Activity as Tolerated Equipment/Supplies:: No Equipment Needed Diet:: As Tolerated Discharge Orders Discharge Orders: Discharge Order (Routine); Ordered 08/17/20 Ordered By: Monroe Pandey DS: Summary Time Spent with Patient providing and/or coordinating discharge services: Greater than 30 minutes Status at Discharge Functional status at discharge: independent ambulation Overall status at discharge: patient is progressing back to baseline Mental Status: mental status grossly normal Speech and Movement: speech and movement normal Mood: congruent mood Affect: normal affect Exam Const General: cooperative and no acute distress Nutritional Appearance: thin Limitations: mental status not altered Neck Neck: full ROM and supple Resp Effort & Inspection: normal respiratory effort Auscultation: clear to auscultation bilaterally and diminished lung sounds Cardio Jugular venous pressure: no JVD Other: Irreg Irreg GI Palpation: soft and nontender Extrem General: no pedal edema and no calf tenderness Psych Appearance: grossly normal Mental Status: mental status grossly normal Speech and Movement: speech and movement normal Mood: congruent mood Affect: normal affect DS: Data Vitals/I&O Vitals and I&O: Vital Signs Temperature 37.1 C 08/17/20 12:59 Temperature Source Temporal Artery Scan 08/17/20 12:59 Pulse 115 H 08/17/20 12:59 Pulse 98 H 08/17/20 06:00 Respiratory Rate 14 08/17/20 12:59 Respiratory Effort Non-Labored 08/17/20 12:59 Respiratory Depth Normal 08/17/20 12:59 Respiratory Pattern Normal 08/17/20 12:59 Blood Pressure 111/82 08/17/20 06:00 Blood Pressure Mean 87 08/17/20 06:00 Blood Pressure Position Supine 08/17/20 12:59 Pulse Oximetry 99 08/17/20 12:59 Oxygen Delivery Method Room Air 08/17/20 12:59 Oxygen Flow Rate 0 08/17/20 12:59 Pain Level 0 08/17/20 12:59 Intake & Output 08/16/20 08/17/20 08/17/20 23:59 11:59 23:59 Intake Total 2260 / 2260 2500 / 3597.5 1097.5 / 3597.5 Output Total 400 / 400 700 / 700 Balance 1860 / 1860 1800 / 2897.5 1097.5 / 2897.5 Weight 66.8 kg Intake: IV 2200 / 2200 2500 / 3597.5 1097.5 / 3597.5 Oral 60 / 60 Output: Urine 400 / 400 700 / 700 Other: Urine Color Yellow Yellow Urine Appearance Clear Sediment Comment lowe in place. lowe in place. lowe in place. Data Completed and Pending Labs on day of discharge: Labs from last 24 hours 08/17/20 08/17/20 08/17/20 06:38 06:38 06:38 WBC 6.01 D RBC 2.90 L Hgb 8.5 L D Hct 27.3 L D MCV 94.1 MCH 29.3 MCHC 31.1 L RDW 14.4 H Plt Count MPV 11.1 H Immature Gran % 2.3 Neutrophils % 84.9 Band Neutrophils % Lymphocytes % 11.3 Atypical Lymphs % Monocytes % 1.3 Eosinophils % 0.0 Basophils % 0.2 Metamyelocytes % Myelocytes % Promyelocytes % Other Cells % Nucleated RBC % 0 Absolute Neutrophils 5.10 Absolute Lymphocytes 0.68 L Absolute Monocytes 0.08 L Absolute Eosinophils 0.00 Absolute Basophils 0.01 RBC Morphology See below Polychromasia Present Hypochromasia 1+ Poikilocytosis Basophilic Stippling Anisocytosis Microcytosis Macrocytosis Spherocytes Tear Drop Cells Ovalocytes Stomatocytes [place] Bodies Miller Cells/Echinocytes Acanthocytes (Spur) Schistocytes PT INR APTT VBG Lactate 1.9 H Sodium 145 Potassium 3.9 Chloride 115 H Carbon Dioxide 19.6 L Anion Gap 10.4 BUN 25 H Creatinine 0.8 Estimated GFR/1.73 m2 >= 60.00 Glucose 194 H Calcium 7.6 L Total Bilirubin 0.6 AST 19 ALT 13 L Alkaline Phosphatase 183 H Troponin I NT-Pro-B Natriuret Pep Total Protein 5.4 L Albumin 1.6 L Lipase Procalcitonin TSH Free T4 Urine Color Urine Clarity Urine pH Ur Specific [place] Urine Protein Urine Ketones Urine Blood Urine Nitrite Urine Bilirubin Urine Urobilinogen Ur Leukocyte Esterase Urine RBC Urine WBC Ur Epithelial Cells Urine Crystals Urine Bacteria Urine Casts Urine Mucus Ur Culture Indicated? Urine Glucose COVID-19 Source SARS-CoV-2 (PCR) Influenza Type A (PCR) Influenza Type B (PCR) RSV (PCR) 08/16/20 08/16/20 08/16/20 22:55 21:03 19:02 WBC RBC Hgb Hct MCV MCH MCHC RDW Plt Count MPV Immature Gran % Neutrophils % Band Neutrophils % Lymphocytes % Atypical Lymphs % Monocytes % Eosinophils % Basophils % Metamyelocytes % Myelocytes % Promyelocytes % Other Cells % Nucleated RBC % Absolute Neutrophils Absolute Lymphocytes Absolute Monocytes Absolute Eosinophils Absolute Basophils RBC Morphology Polychromasia Hypochromasia Poikilocytosis Basophilic Stippling Anisocytosis Microcytosis Macrocytosis Spherocytes Tear Drop Cells Ovalocytes Stomatocytes [place] Bodies [place] Cells/Echinocytes Acanthocytes (Spur) Schistocytes PT INR APTT VBG Lactate 1.4 Sodium Potassium Chloride Carbon Dioxide Anion Gap BUN Creatinine Estimated GFR/1.73 m2 Glucose Calcium Total Bilirubin AST ALT Alkaline Phosphatase Troponin I < 0.05 < 0.05 NT-Pro-B Natriuret Pep Total Protein Albumin Lipase Procalcitonin TSH Free T4 Urine Color Urine Clarity Urine pH Ur Specific [place] Urine Protein Urine Ketones Urine Blood Urine Nitrite Urine Bilirubin Urine Urobilinogen Ur Leukocyte Esterase Urine RBC Urine WBC Ur Epithelial Cells Urine Crystals Urine Bacteria Urine Casts Urine Mucus Ur Culture Indicated? Urine Glucose COVID-19 Source SARS-CoV-2 (PCR) Influenza Type A (PCR) Influenza Type B (PCR) RSV (PCR) 08/16/20 08/16/20 08/16/20 19:00 16:44 16:22 WBC RBC Hgb Hct MCV MCH MCHC RDW Plt Count MPV Immature Gran % Neutrophils % Band Neutrophils % Lymphocytes % Atypical Lymphs % Monocytes % Eosinophils % Basophils % Metamyelocytes % Myelocytes % Promyelocytes % Other Cells % Nucleated RBC % Absolute Neutrophils Absolute Lymphocytes Absolute Monocytes Absolute Eosinophils Absolute Basophils RBC Morphology Polychromasia Hypochromasia Poikilocytosis Basophilic Stippling Anisocytosis Microcytosis Macrocytosis Spherocytes Tear Drop Cells Ovalocytes Stomatocytes [place] Bodies [place] Cells/Echinocytes Acanthocytes (Spur) Schistocytes PT INR APTT VBG Lactate Sodium Potassium Chloride Carbon Dioxide Anion Gap BUN Creatinine Estimated GFR/1.73 m2 Glucose Calcium Total Bilirubin AST ALT Alkaline Phosphatase Troponin I Cancelled NT-Pro-B Natriuret Pep Total Protein Albumin Lipase Procalcitonin 0.1 TSH Free T4 Urine Color Yellow Urine Clarity Clear Urine pH 5.5 Ur Specific [place] 1.025 Urine Protein Trace H Urine Ketones Negative Urine Blood Trace-intact H Urine Nitrite Negative Urine Bilirubin Negative Urine Urobilinogen 0.2 Ur Leukocyte Esterase Negative Urine RBC 3-5 H Urine WBC 3-5 Ur Epithelial Cells Rare Urine Crystals Negative Urine Bacteria Negative Urine Casts Negative Urine Mucus Negative Ur Culture Indicated? No Urine Glucose Negative COVID-19 Source SARS-CoV-2 (PCR) Influenza Type A (PCR) Influenza Type B (PCR) RSV (PCR) 08/16/20 08/16/20 08/16/20 14:43 14:25 14:25 WBC RBC Hgb Hct MCV MCH MCHC RDW Plt Count MPV Immature Gran % Neutrophils % Band Neutrophils % Lymphocytes % Atypical Lymphs % Monocytes % Eosinophils % Basophils % Metamyelocytes % Myelocytes % Promyelocytes % Other Cells % Nucleated RBC % Absolute Neutrophils Absolute Lymphocytes Absolute Monocytes Absolute Eosinophils Absolute Basophils RBC Morphology Polychromasia Hypochromasia Poikilocytosis Basophilic Stippling Anisocytosis Microcytosis Macrocytosis Spherocytes Tear Drop Cells Ovalocytes Stomatocytes [place] Bodies [place] Cells/Echinocytes Acanthocytes (Spur) Schistocytes PT INR APTT VBG Lactate 2.6 H* Sodium 144 Potassium 3.6 Chloride 111 H Carbon Dioxide 22.6 Anion Gap 10.4 BUN 25 H Creatinine 0.8 Estimated GFR/1.73 m2 >= 60.00 Glucose 161 H Calcium 8.0 L Total Bilirubin 0.7 AST 24 ALT 15 L Alkaline Phosphatase 254 H Troponin I NT-Pro-B Natriuret Pep 1463 H Total Protein 6.3 L Albumin 1.7 L Lipase 87 Procalcitonin TSH 7.00 H Free T4 1.14 Urine Color Urine Clarity Urine pH Ur Specific [place] Urine Protein Urine Ketones Urine Blood Urine Nitrite Urine Bilirubin Urine Urobilinogen Ur Leukocyte Esterase Urine RBC Urine WBC Ur Epithelial Cells Urine Crystals Urine Bacteria Urine Casts Urine Mucus Ur Culture Indicated? Urine Glucose COVID-19 Source Nasopharyx SARS-CoV-2 (PCR) Negative Influenza Type A (PCR) Negative Influenza Type B (PCR) Negative RSV (PCR) Negative 08/16/20 08/16/20 08/16/20 14:25 14:25 14:10 WBC 17.34 H D Cancelled RBC 3.80 L Cancelled Hgb 11.2 L Cancelled Hct 35.8 L D Cancelled MCV 94.2 Cancelled MCH 29.5 Cancelled MCHC 31.3 L Cancelled RDW 14.5 H Cancelled Plt Count 339 Cancelled MPV 11.1 H Cancelled Immature Gran % 0.0 Cancelled Neutrophils % 81.0 Cancelled Band Neutrophils % 3 Cancelled Lymphocytes % 11.0 Cancelled Atypical Lymphs % 0 Cancelled Monocytes % 3.0 Cancelled Eosinophils % 0.0 Cancelled Basophils % 0.0 Cancelled Metamyelocytes % 1 Cancelled Myelocytes % 1 Cancelled Promyelocytes % Cancelled Other Cells % Cancelled Nucleated RBC % 0 Cancelled Absolute Neutrophils 14.57 H Cancelled Absolute Lymphocytes 1.91 Cancelled Absolute Monocytes 0.52 Cancelled Absolute Eosinophils 0.00 Cancelled Absolute Basophils 0.00 Cancelled RBC Morphology See below Cancelled Polychromasia Present Cancelled Hypochromasia Cancelled Poikilocytosis Cancelled Basophilic Stippling Cancelled Anisocytosis Cancelled Microcytosis Cancelled Macrocytosis Cancelled Spherocytes Cancelled Tear Drop Cells Cancelled Ovalocytes Cancelled Stomatocytes Cancelled [place] Bodies Cancelled Miller Cells/Echinocytes Cancelled Acanthocytes (Spur) Cancelled Schistocytes Cancelled PT 13.1 H INR 1.3 H APTT 26.1 VBG Lactate Sodium Potassium Chloride Carbon Dioxide Anion Gap BUN Creatinine Estimated GFR/1.73 m2 Glucose Calcium Total Bilirubin AST ALT Alkaline Phosphatase Troponin I NT-Pro-B Natriuret Pep Total Protein Albumin Lipase Procalcitonin TSH Free T4 Urine Color Urine Clarity Urine pH Ur Specific [place] Urine Protein Urine Ketones Urine Blood Urine Nitrite Urine Bilirubin Urine Urobilinogen Ur Leukocyte Esterase Urine RBC Urine WBC Ur Epithelial Cells Urine Crystals Urine Bacteria Urine Casts Urine Mucus Ur Culture Indicated? Urine Glucose COVID-19 Source SARS-CoV-2 (PCR) Influenza Type A (PCR) Influenza Type B (PCR) RSV (PCR) 08/16/20 08/16/20 08/16/20 14:10 14:10 14:04 WBC RBC Hgb Hct MCV MCH MCHC RDW Plt Count MPV Immature Gran % Neutrophils % Band Neutrophils % Lymphocytes % Atypical Lymphs % Monocytes % Eosinophils % Basophils % Metamyelocytes % Myelocytes % Promyelocytes % Other Cells % Nucleated RBC % Absolute Neutrophils Absolute Lymphocytes Absolute Monocytes Absolute Eosinophils Absolute Basophils RBC Morphology Polychromasia Hypochromasia Poikilocytosis Basophilic Stippling Anisocytosis Microcytosis Macrocytosis Spherocytes Tear Drop Cells Ovalocytes Stomatocytes [place] Bodies Miller Cells/Echinocytes Acanthocytes (Spur) Schistocytes PT INR APTT VBG Lactate Cancelled Cancelled Sodium Cancelled Potassium Cancelled Chloride Cancelled Carbon Dioxide Cancelled Anion Gap Cancelled BUN Cancelled Creatinine Cancelled Estimated GFR/1.73 m2 Cancelled Glucose Cancelled Calcium Cancelled Total Bilirubin Cancelled AST Cancelled ALT Cancelled Alkaline Phosphatase Cancelled Troponin I Cancelled NT-Pro-B Natriuret Pep Cancelled Total Protein Cancelled Albumin Cancelled Lipase Cancelled Procalcitonin TSH Cancelled Free T4 Urine Color Urine Clarity Urine pH Ur Specific [place] Urine Protein Urine Ketones Urine Blood Urine Nitrite Urine Bilirubin Urine Urobilinogen Ur Leukocyte Esterase Urine RBC Urine WBC Ur Epithelial Cells Urine Crystals Urine Bacteria Urine Casts Urine Mucus Ur Culture Indicated? Urine Glucose COVID-19 Source SARS-CoV-2 (PCR) Influenza Type A (PCR) Influenza Type B (PCR) RSV (PCR) 08/16/20 14:50 Blood Blood Culture - Pending 08/16/20 14:25 Blood Blood Culture - Pending Preliminary micro results at discharge 08/16/20 14:50 Blood Culture - Pending Blood 08/16/20 14:25 Blood Culture - Pending Blood [facility] Medical History Gastric cancer Metastatic cancer Pneumonia Surgical History Status post total gastrectomy and Jewell-en-Y esophagojejunal anastomosis Social History Smoking/Tobacco Use Status: Former Tobacco Use Smoking risk assessment performed?: Yes Alcohol Intake: former Drug use: Never Substance use type: does not use Do you feel safe at home: Yes Do you feel safe in your relationship?: Yes Additional Social history: Son lives with patient
[2020-08-19 08:27] LABS: WBC 17.34 10^3/uL (4.4-10.8)
== END 2020-08-17 15:00 | disposition home or self-care (01) | DRG 871 ==
LOC: ER 16:35 → ICU 18:12
PROVIDERS: Admitting Provider Internal Medicine; Emergency Provider Student in an Organized Health Care Education/Training Program; PCP Internal Medicine; Visit Provider Internal Medicine
DX: A41.9 Sepsis, unspecified organism (principal); R65.21 Severe sepsis with septic shock; J18.9 Pneumonia, unspecified organism; C16.9 Malignant neoplasm of stomach, unspecified; J90 Pleural effusion, not elsewhere classified; C79.9 Secondary malignant neoplasm of unspecified site; Z66 Do not resuscitate; Z87.891 Personal history of nicotine dependence; I48.91 Unspecified atrial fibrillation
CPT/HCPCS: 36415; 36591; 51702; 71275; 74177; 80053; 83690; 84145; 87040; 87637; 93005; 96361; 96365; 96366; 96367; 99223; 99239; 99285; J1650; 81003; 81015; 82378; 83605; 83735; 83880; 84100; 84134; 84439; 84443; 84478; 84484; 85025; 85610; 85730; 93010; 94640; J1720; J1956; J2543; J3490; J7620